=== PATIENT | male | born 1960 | race Caucasian/White ===

== ENCOUNTER 2018-05-10 01:18 | Inpatient (IN) | payer BC ==
[2018-05-10] MEDS ORDERED: NITROGLYCERIN SL TABS 0.4 MG TAB SUBLINGUAL PRN (01:49)
[2018-05-10] MEDS ORDERED: NITROGLYCERIN-D5W PMX 50 MG in DEXTROSE/WATER 1 250ML.BAG IV ONE (01:52)
--- NOTE | 2018-05-10 01:53 | ED ---
Chest Pain [facility] - General Chief Complaint: Chest Pain Stated Complaint: Chest Pain Time Seen by Provider: 05/10/18 01:46 Source: patient Mode of arrival: EMS Limitations: no limitations - History of Present Illness Initial Comments: This patient is 57-year-old man transferred here from the outside hospital. The patient had gone there this evening to be evaluated for chest pain that is been intermittent over the past few days and got much worse tonight. He indicates the left chest and states the pain radiates to his neck and also to his left upper extremity. He has history of previous coronary artery disease and states he has had approximately 13 stents placed the last of which was 2-3 years ago. He states that this pain feels very similar to what he was having with the previous stent. Patient initial evaluation was negative, the patient had been started on heparin and nitroglycerin drip and transferred here. He states that his pain is now resolved. He is not having any anginal symptoms at the moment. MD Complaint: chest pain -: days(s) Onset: during rest Pain Location: left chest Pain Radiation: LUE, jaw/teeth Severity: moderate Quality: tightness Consistency: constant, now resolved Improves With: nitroglycerin Worsens With: nothing Treatments Prior to Arrival: aspirin, nitroglycerin, oxygen, other (Heparin) - Related Data Home Medications Medication Instructions Recorded Confirmed Aspirin [Adult Low Dose Aspirin EC] 81 mg PO DAILY 05/10/18 05/10/18 Atenolol [Tenormin] 25 mg PO BID 05/10/18 05/10/18 Atorvastatin [Lipitor] 20 mg PO HS 05/10/18 05/10/18 Cholecalciferol [Vitamin D3] 1,000 unit PO DAILY 05/10/18 05/10/18 Lisinopril [Zestril] 2.5 mg PO DAILY 05/10/18 05/10/18 Tamsulosin [Flomax] 0.4 mg PO DAILY 05/10/18 05/10/18 Testosterone Cypionate 200 mg IM Q30D 05/10/18 05/10/18 [Depo-Testosterone] Previous Rx's Medication Instructions Recorded Clopidogrel [Plavix] 75 mg PO DAILY #30 tab 04/12/16 Nitroglycerin Sl Tabs [Nitrostat] 0.4 mg SUBLINGUAL Q5M PRN #20 tab 06/18/16 Allergies Allergy/AdvReac Type Severity Reaction Status Date / Time No Known Allergies Allergy Verified 05/10/18 07:11 Review of Systems ROS Statement: Those systems with pertinent positive or pertinent negative responses have been documented in the HPI. ROS Other: All systems not noted in ROS Statement are negative. Constitutional: Denies: fever, chills Respiratory: Denies: cough, dyspnea, hemoptysis Cardiovascular: Reports: chest pain. Denies: palpitations, orthopnea, edema, syncope Gastrointestinal: Denies: abdominal pain, nausea, vomiting, diarrhea, melena, hematochezia Genitourinary: Denies: dysuria Musculoskeletal: Denies: back pain Skin: Denies: rash Neurological: Denies: headache, weakness, numbness, paresthesias EKG Findings - EKG Results: EKG: interpreted by LEEANN PITTMAN, sinus rhythm, normal axis, normal QRS, normal ST/ T, no acute changes EKG shows: bradycardia (Rate approximately 59 bpm) Past Medical History Past Medical History: Coronary Artery Disease (CAD), Chest Pain / Angina, Hypertension, Myocardial Infarction (OR) History of Any Multi-Drug Resistant Organisms: None Reported Past Surgical History: Heart Catheterization With Stent, Tonsillectomy Additional Past Surgical History / Comment(s): 13 stents, Past Anesthesia/Blood Transfusion Reactions: No Reported Reaction Past Psychological History: No Psychological Hx Reported Smoking Status: Current some day smoker Past Alcohol Use History: Daily Past Drug Use History: None Reported - Past Family History Father Family Medical History: Cancer, Coronary Artery Disease (CAD) General Exam Limitations: no limitations General appearance: alert, in no apparent distress Head exam: Present: atraumatic, normocephalic Eye exam: Present: normal appearance. Absent: scleral icterus, conjunctival injection ENT exam: Present: normal oropharynx Neck exam: Present: normal inspection Respiratory exam: Present: normal lung sounds bilaterally. Absent: respiratory distress, wheezes, rales, rhonchi, stridor Cardiovascular Exam: Present: regular rate, normal rhythm, normal heart sounds. Absent: systolic murmur, diastolic murmur, rubs, gallop GI/Abdominal exam: Present: soft. Absent: distended, tenderness, guarding, rebound, mass Extremities exam: Present: normal inspection, normal capillary refill. Absent: pedal edema, calf tenderness Back exam: Present: normal inspection. Absent: CVA tenderness (R), CVA tenderness (L) Neurological exam: Present: alert Skin exam: Present: warm, dry, intact, normal color. Absent: rash Course Vital Signs 05/10/18 05/10/18 05/10/18 01:21 04:11 04:41 Temperature 97.8 F Pulse Rate 60 65 63 Respiratory 18 18 18 Rate Blood Pressure 126/66 129/77 148/82 O2 Sat by Pulse 96 96 95 Oximetry 05/10/18 05/10/18 06:06 07:14 Temperature 97.7 F Pulse Rate 56 L 57 L Respiratory 18 18 Rate Blood Pressure 135/74 122/75 O2 Sat by Pulse 94 L 96 Oximetry Critical Care Time Critical Care Time: Yes (30 minutes) Disposition Clinical Impression: Chest pain, Acute coronary syndrome Disposition: ADMITTED IP TO THIS HOSP Condition: Fair Is patient prescribed a controlled substance at d/c from ED?: No
[2018-05-10] MEDS: HEPARIN SOD,PORK IN 0.45% NACL 25,000 UNIT in 0.45% NACL 1 500ML.BAG IV SCH ×2 (04:42→23:48)
[2018-05-10] MEDS: SODIUM CHLORIDE 0.9% 1,000 ML IV SCH ×3 (04:42→15:46)
[2018-05-10 06:47] LABS: Creatine Kinase MB 0.9 ng/mL (0.0-2.4)
[2018-05-10 06:56] LABS: Troponin I 0.047 ng/mL (0.000-0.034)
--- NOTE | 2018-05-10 06:58 | P.HPIM ---
History of Present Illness H&P Date: 05/10/18 Chief Complaint: Chest pain 57-year-old male with history of coronary artery disease status post stents, hypertension, and smoking. Patient was transferred to our facility from different hospital ([facility]) where he presented for intermittent chest pain over the past few days. He reports chest pain with activity , He describes left-sided chest pain feels like tightness and pressure that radiates to the neck and left arm 8 out of 10 in severity associated with feeling nauseous and dizzy and difficulty breathing. Nitro helped resolve the pain. He describes that the pain is very similar to previous attacks where he required left heart cath and stenting patient was started on heparin drip and nitro drip at the other facility and was transferred to our hospital. Currently he reports no pain Otherwise patient denies any GI bleeding, denies any headache or changes in his vision or hearing he denies any abdominal pain changes in his bowel habits or urinary habits. Denies any focal neurologic deficits Review of Systems Pertinent positives as noted in HPI. All other systems were reviewed and are negative Past Medical History Past Medical History: Coronary Artery Disease (CAD), Chest Pain / Angina, Hypertension, Myocardial Infarction (OR) History of Any Multi-Drug Resistant Organisms: None Reported Past Surgical History: Heart Catheterization With Stent, Tonsillectomy Additional Past Surgical History / Comment(s): 13 stents, Past Anesthesia/Blood Transfusion Reactions: No Reported Reaction Past Psychological History: No Psychological Hx Reported Smoking Status: Current some day smoker Past Alcohol Use History: Daily Past Drug Use History: None Reported - Past Family History Father Family Medical History: Cancer, Coronary Artery Disease (CAD) Medications and Allergies Home Medications Medication Instructions Recorded Confirmed Type Clopidogrel [Plavix] 75 mg PO DAILY #30 tab 04/12/16 05/10/18 Rx Nicotine 21Mg/24Hr Patch [Habitrol] 1 patch TRANSDERM DAILY #30 patch 04/12/16 05/10/18 Rx Nitroglycerin Sl Tabs [Nitrostat] 0.4 mg SUBLINGUAL Q5M PRN #20 tab 04/12/16 Rx Aspirin [Adult Low Dose Aspirin EC] 81 mg PO 05/10/18 History Atenolol [Tenormin] 25 mg PO BID 05/10/18 05/10/18 History Atorvastatin [Lipitor] 20 mg PO HS 05/10/18 05/10/18 History Cholecalciferol [Vitamin D3] 1,000 unit PO DAILY 05/10/18 05/10/18 History Lisinopril [Zestril] 25 mg PO DAILY 05/10/18 05/10/18 History Tamsulosin [Flomax] 0.4 mg PO DAILY 05/10/18 05/10/18 History Allergies Allergy/AdvReac Type Severity Reaction Status Date / Time No Known Allergies Allergy Verified 05/10/18 01:26 Physical Exam Vitals: Vital Signs Temp Pulse Resp BP Pulse Ox 05/10/18 06:06 97.7 F 56 L 18 135/74 94 L 05/10/18 04:41 63 18 148/82 95 05/10/18 04:11 97.8 F 65 18 129/77 96 05/10/18 01:21 60 18 126/66 96 Intake and Output 05/09/18 05/09/18 05/10/18 14:59 22:59 06:59 Output Total 230 Balance -230 Output: Gastric Drainage 230 Other: Weight 79.379 kg Constitutional: No acute distress, conversant, pleasant Eyes: Anicteric sclerae, moist conjunctiva, no lid-lag Pupils equal round reactive to light ENMT: NC/AT Oropharynx clear, no erythema, or exudates Neck: Supple, FROM, no masses, or JVD No carotid bruits No thyromegaly Lungs: Clear to auscultation Clear to percussion Normal respiratory effort, no accessory muscle use Cardiovascular: Heart regular in rate and rhythm, No murmurs, gallops, or rubs No peripheral edema Abdominal: Soft Nontender, no guarding, rebound or rigidity Abdomen moving with respiration Normoactive bowel sounds No hepatomegaly, No splenomegaly No palpable mass No abdominal wall hernia noted Skin: Normal temperature, tone, texture, turgor No induration No subcutaneous nodules No rash, lesions No ulcers Extremities: No digital cyanosis No clubbing Pedal pulses intact and symmetrical Radial pulses intact and symmetrical No calf tenderness Psychiatric: Alert and oriented to person, place and time Appropriate affect fair judgment Neuro Muscles Strength 5/5 in all 4 extremities Sensation to light touch grossly present throughout Cranial nerves II-XII grossly intact No focal sensory deficits Lymphatics: no palpable cervical or supraclavicular , or inguinal lymph nodes Assessment and Plan Assessment: 57-year-old male with history of coronary artery disease status post stents, hypertension and smoking. Patient is admitted under observation with anticipated length of stay of less than 48 hours for unstable angina he was transferred from a different facility ([facility]) with nitro drip and heparin drip which helped control his pain. 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 Monitor troponins and cardiac enzymes Morphine when necessary for pain Oxygen through nasal cannula as needed Cardiology consult Hypertension Continue with atenolol and lisinopril Sinus bradycardia currently asymptomatic Continue to monitor DVT prophylaxis patient on heparin drip for ACS smoking few cigarettes daily counseled to quit smoking Surrogate decision-maker:Hoa uribe CODE STATUS:full code Anticipated discharge: <[address]: Home A total of 50 minutes was spent on the care of this complex patient more than 50 % of the time was spent in counseling and care coordination.
[2018-05-10 09:15] LABS: Basophils # (A) 0.1 k/uL (0-0.2); Basophils % (A) 1 %; Eosinophils # (A) 0.3 k/uL (0-0.7); Eosinophils % (A) 4 %; HCT 44.2 % (39.0-53.0); HGB 15.2 gm/dL (13.0-17.5); Lymphocytes % (A) 28 %; MCH 31.1 pg (25.0-35.0); MCHC 34.3 g/dL (31.0-37.0); MCV 90.5 fL (80.0-100.0); Mean Platelet Volume 6.8; Monocytes # (A) 0.6 k/uL (0-1.0); Monocytes % (A) 9 %; Neutrophils % (A) 56 %; Platelet Count 201 k/uL (150-450); RBC 4.89 m/uL (4.30-5.90); RDW 13.7 % (11.5-15.5); WBC 7.2 k/uL (3.8-10.6)
[2018-05-10] MEDS: LISINOPRIL 2.5 MG TAB PO SCH (09:18)
[2018-05-10] MEDS: CLOPIDOGREL 75 MG TAB PO SCH (09:18)
[2018-05-10] MEDS: ATENOLOL 25 MG TAB PO SCH ×2 (09:18→20:14)
[2018-05-10] MEDS: TAMSULOSIN 0.4 MG CAP.ER.24H PO SCH (09:19)
[2018-05-10 09:58] LABS: ALT 24 U/L (21-72); AST 24 U/L (17-59); Albumin 3.9 g/dL (3.5-5.0); Alkaline Phosphatase 87 U/L (38-126); Anion Gap 5 mmol/L; Blood Urea Nitrogen 8 mg/dL (9-20); Calcium 8.6 mg/dL (8.4-10.2); Carbon Dioxide 25 mmol/L (22-30); Chloride 110 mmol/L (98-107); Glucose 86 mg/dL (74-99); Potassium 4.8 mmol/L (3.5-5.1); Sodium 140 mmol/L (137-145); Total Bilirubin 0.4 mg/dL (0.2-1.3); Total Protein 6.6 g/dL (6.3-8.2)
--- NOTE | 2018-05-10 12:49 | P.CRDCN ---
History of Present Illness Consult date: 05/10/18 Chief complaint: chest discomfort History of present illness: This is a pleasant 57-year-old gentleman who sees Dr. VC Simpson in the office on regular basis with past medical history significant for coronary artery disease and status post multi-vessel angioplasty and stenting with the last stent was performed in 2016 for the RCA, significant history of smoking, as well as hypertension and dyslipidemia presented to the emergency room complaining of chest discomfort. The symptoms started about 3 days ago. The patient described chest discomfort, in the mid of the chest, as a pressure on the chest, associated with shortness of breath as well as nausea. The discomfort was radiating to his neck as well as to his jaw. He clearly stated that the discomfort is clearly worse with exertion and better with resting. It has gotten worse yesterday significantly and he decided to come to the emergency room. Currently he is on heparin IV as well as nitroglycerin IV and he is pain-free. The EKG showed sinus rhythm with nonspecific changes. The cardiac enzymes were checked and we have only one set of enzymes came in to be abnormal was abnormal troponin. The patient was ruled in for acute non-ST patient myocardial infarction. We'll continue the aspirin IV and heparin IV. He is on dual antiplatelet therapy with aspirin and Plavix and we will continue that. Also he is on high intensity statin which we will continue. The patient does need to undergo a heart catheterization to rule out any severe underlying coronary artery disease which is likely the etiology for his chest discomfort giving the nature of chest discomfort with exertion as well as abnormal cardiac enzymes and History of coronary artery disease and coronary artery vascularization. Past Medical History Past Medical History: Coronary Artery Disease (CAD), Chest Pain / Angina, Hypertension, Myocardial Infarction (SC) History of Any Multi-Drug Resistant Organisms: None Reported Past Surgical History: Heart Catheterization With Stent, Tonsillectomy Additional Past Surgical History / Comment(s): 13 stents, Past Anesthesia/Blood Transfusion Reactions: No Reported Reaction Past Psychological History: No Psychological Hx Reported Smoking Status: Current some day smoker Past Alcohol Use History: Daily Past Drug Use History: None Reported - Past Family History Father Family Medical History: Cancer, Coronary Artery Disease (CAD) Medications and Allergies Home Medications Medication Instructions Recorded Confirmed Type Clopidogrel [Plavix] 75 mg PO DAILY #30 tab 04/12/16 05/10/18 Rx Nitroglycerin Sl Tabs [Nitrostat] 0.4 mg SUBLINGUAL Q5M PRN #20 tab 04/12/16 Rx Aspirin [Adult Low Dose Aspirin EC] 81 mg PO DAILY 05/10/18 05/10/18 History Atenolol [Tenormin] 25 mg PO BID 05/10/18 05/10/18 History Atorvastatin [Lipitor] 20 mg PO HS 05/10/18 05/10/18 History Cholecalciferol [Vitamin D3] 1,000 unit PO DAILY 05/10/18 05/10/18 History Lisinopril [Zestril] 2.5 mg PO DAILY 05/10/18 05/10/18 History Tamsulosin [Flomax] 0.4 mg PO DAILY 05/10/18 05/10/18 History Testosterone Cypionate 200 mg IM Q30D 05/10/18 05/10/18 History [Depo-Testosterone] Allergies Allergy/AdvReac Type Severity Reaction Status Date / Time No Known Allergies Allergy Verified 05/10/18 07:11 Physical Exam Vitals: Vital Signs Temp Pulse Pulse Resp BP BP Pulse Ox 05/10/18 11:20 97.1 F L 60 16 133/85 95 05/10/18 10:33 64 18 142/91 95 05/10/18 09:20 63 18 127/75 94 L 05/10/18 08:52 96 05/10/18 07:14 57 L 18 122/75 96 05/10/18 06:06 97.7 F 56 L 18 135/74 94 L 05/10/18 04:41 63 18 148/82 95 05/10/18 04:11 97.8 F 65 18 129/77 96 05/10/18 01:21 60 18 126/66 96 Intake and Output 05/09/18 05/10/18 05/10/18 22:59 06:59 14:59 Other: Weight 77.9 kg - Constitutional General appearance: no acute distress - Respiratory Respiratory: bilateral: CTA - Cardiovascular Rhythm: regular Heart sounds: normal: S1, S2 Results 05/10/18 09:07 05/10/18 09:07 Cardiac Enzymes 05/10/18 05/10/18 Range/Units 05:54 09:07 AST 24 (17-59) U/L CK-MB (CK-2) 0.9 (0.0-2.4) ng/mL Troponin I 0.047 H* (0.000-0.034) ng/mL Coagulation 05/10/18 Range/Units 06:05 APTT 33.0 H (22.0-30.0) sec CBC 05/10/18 Range/Units 09:07 WBC 7.2 (3.8-10.6) k/uL RBC 4.89 (4.30-5.90) m/uL Hgb 15.2 (13.0-17.5) gm/dL Hct 44.2 (39.0-53.0) % Plt Count 201 (150-450) k/uL Comprehensive Metabolic Panel 05/10/18 Range/Units 09:07 Sodium 140 (137-145) mmol/L Potassium 4.8 (3.5-5.1) mmol/L Chloride 110 H (98-107) mmol/L Carbon Dioxide 25 (22-30) mmol/L BUN 8 L (9-20) mg/dL Creatinine 0.69 (0.66-1.25) mg/dL Glucose 86 (74-99) mg/dL Calcium 8.6 (8.4-10.2) mg/dL AST 24 (17-59) U/L ALT 24 (21-72) U/L Alkaline Phosphatase 87 (38-126) U/L Total Protein 6.6 (6.3-8.2) g/dL Albumin 3.9 (3.5-5.0) g/dL Current Medications Generic Name Dose Route Start Last Admin Trade Name Freq PRN Reason Stop Dose Admin Aspirin 325 mg 05/11/18 09:00 Aspirin PO DAILY [facility] Atenolol 25 mg 05/10/18 09:00 05/10/18 09:18 Tenormin PO 25 mg BID SONIA Administration Atorvastatin Calcium 20 mg 05/10/18 21:00 Lipitor PO HS [facility] Clopidogrel Bisulfate 75 mg 05/10/18 09:00 05/10/18 09:18 Plavix PO 75 mg DAILY [facility] Administration Heparin Sodium/Sodium Chloride 500 mls @ 19.05 mls/hr 05/10/18 02:00 04:42 25,000 unit/ Sodium Chloride IV 12 units/kg/hr .Q24H SONIA 19.05 mls/hr Administration Protocol 12 UNITS/KG/HR Sodium Chloride 1,000 mls @ 100 mls/hr 05/10/18 02:00 05/10/18 12:21 Saline 0.9% IV Not Given .Q10H SONIA Nitroglycerin/Dextrose 50 mg/ 250 mls @ 3 mls/hr 05/10/18 01:52 05/10/18 04: 44 IV Solution IV 05/11/18 01:51 10 mcg/min .Q24H ONE 3 mls/hr Administration Protocol 10 MCG/MIN Lisinopril 2.5 mg 05/10/18 09:00 05/10/18 09:18 Zestril PO 2.5 mg DAILY SONIA Administration Nitroglycerin 0.4 mg 05/10/18 01:49 Nitrostat SUBLINGUAL Q5M PRN Chest Pain Tamsulosin HCl 0.4 mg 05/10/18 09:00 05/10/18 09:19 Flomax PO 0.4 mg DAILY SONIA Administration Intake and Output 05/09/18 05/10/18 05/10/18 22:59 06:59 14:59 Other: Weight 77.9 kg 05/10/18 09:07 05/10/18 09:07 Assessment and Plan Assessment: assessment #1 acute non-ST elevation myocardial infarction #2 known coronary artery disease and prior coronary artery and stenting of multiple vessels #3 significant history of smoking. Unfortunately the patient continues to smoke #4 hypertension #5 dyslipidemia Plan #1 continue the aspirin, with a sagrario, and statin #2 continue the heparin IV and nitro IV and titrate the nitro IV the chest discomfort #3 we will obtain an echocardiogram was Doppler #4 the patient does need to undergo coronary angiogram to rule out any severe underlying coronary artery disease. He sees Dr. VC Simpson in the office and I will schedule the patient to undergo a heart catheterization with him.
[2018-05-10 13:03] LABS: Creatine Kinase MB 0.6 ng/mL (0.0-2.4)
[2018-05-10 13:06] LABS: Troponin I 0.038 ng/mL (0.000-0.034)
--- NOTE | 2018-05-10 13:11 | P.PN ---
Progress Note - Text Progress Note Date: 05/10/18 An 57-year-old male with known history of coronary disease with stenting, presenting with non-ST elevation SC, with his second set of cardiac enzymes trending up, he started on IV heparin, aspirin beta sagrario and statin therapy. We'll follow-up his echocardiogram. An cardiology recommendations. The patient currently pain-free. We'll continue to monitor closely
--- NOTE | 2018-05-10 15:10 | ECHOF ---
Referral Reason:chest pain rule out MEASUREMENTS -------- HEIGHT: 182.9 cm WEIGHT: 78.0 kg BP: IVSd: 1.3 cm (0.6 - 1.1) LVIDd: 4.0 cm (3.9 - 5.3) LVPWd: 1.3 cm (0.6 - 1.1) IVSs: 1.8 cm LVIDs: 2.2 cm LVPWs: 1.9 cm Ao Diam: 3.4 cm (2.0 - 3.7) LA Diam: 3.4 cm (2.7 - 3.8) AV Cusp: 1.8 cm (1.5 - 2.6) EPSS: 0.7 cm MV E José Miguel: 0.82 m/s MV DecT: 337 ms MV A José Miguel: 0.89 m/s MV E/A Ratio: 0.92 RAP: 5.00 mmHg RVSP: 8.86 mmHg MV EF SLOPE: 67.70 mm/s (70 - 150) MV EXCURSION: 22.21 mm (> 18.000) FINDINGS -------- Sinus rhythm. This was a technically good study. The left ventricular size is normal. There is mild concentric left ventricular hypertrophy. Overa ll left ventricular systolic function is normal with, an EF between 55 - 60 %. The right ventricle is normal in size and function. The left atrium is normal in size. The right atrium is normal in size. Aortic valve is trileaflet and is mildly thickened. The mitral valve leaflets are mildly thickened. There is trace mitral regurgitation. Trace tricuspid regurgitation present. The right ventricular systolic pressure, as measured by Dopp ler, is 8.86mmHg. Pulmonic valve appears structurally normal. The aortic root size is normal. Normal inferior vena cava with normal inspiratory collapse consistent with estimated right atrial pre ssure of 5 mmHg. The pericardium is normal. CONCLUSIONS -------- 1. Sinus rhythm. 2. This was a technically good study. 3. The left ventricular size is normal. 4. There is mild concentric left ventricular hypertrophy. 5. Overall left ventricular systolic function is normal with, an EF between 55 - 60 %. 6. The right ventricle is normal in size and function. 7. The left atrium is normal in size. 8. The right atrium is normal in size. 9. Aortic valve is trileaflet and is mildly thickened. 10. The mitral valve leaflets are mildly thickened. 11. There is trace mitral regurgitation. 12. Trace tricuspid regurgitation present. 13. The right ventricular systolic pressure, as measured by Doppler, is 8.86mmHg. 14. Pulmonic valve appears structurally normal. 15. The aortic root size is normal. 16. Normal inferior vena cava with normal inspiratory collapse consistent with estimated right atrial pressure of 5 mmHg. 17. The pericardium is normal. PINKING SEWING MACHINE OPERATOR: Dafne Caceres RDCS
[2018-05-10] MEDS ORDERED: HEPARIN SODIUM,PORCINE 5,000 UNIT/ML 1 ML VIAL IV PRN (15:42)
[2018-05-10 19:24] LABS: Creatine Kinase MB 0.6 ng/mL (0.0-2.4)
[2018-05-10 19:29] LABS: Troponin I 0.036 ng/mL (0.000-0.034)
[2018-05-10] MEDS: ATORVASTATIN 20 MG TAB PO SCH (20:14)
[2018-05-11] MEDS: CLOPIDOGREL 75 MG TAB PO SCH (06:07)
[2018-05-11] MEDS: LISINOPRIL 2.5 MG TAB PO SCH (06:07)
[2018-05-11] MEDS: ATENOLOL 25 MG TAB PO SCH ×2 (06:07→20:41)
[2018-05-11] MEDS: ASPIRIN 325 MG TAB PO SCH (06:07)
[2018-05-11 06:48] LABS: Cholesterol 165 mg/dL (<200); HDL Cholesterol 53 mg/dL (40-60); LDL Cholesterol,Calculated 88 mg/dL (0-99); Triglycerides 121 mg/dL (<150)
[2018-05-11] MEDS: SODIUM CHLORIDE 0.9% 1,000 ML IV SCH ×2 (08:28→20:41)
--- NOTE | 2018-05-11 10:22 | P.PN ---
Subjective Progress Note Date: 05/11/18 Principal diagnosis: Acute non-ST deviation in my This is a pleasant 57-year-old gentleman who sees Dr. VC Simpson in the office as an outpatient with known CAD and prior revascularization indeterminable stenting, hypertension, dyslipidemia, and significant history of smoking, was admitted to the hospital with acute non-ST elevation NM. He presented to the emergency room with chest discomfort and ruled in for acute non-STMI. He is pain-free on heparin IV and nitroglycerin IV. I did recommend proceeding with a heart catheterization to rule out any severe underlying coronary artery disease. The procedure in details was explained to the patient and his family. Objective - Vital Signs Vital signs: Vital Signs Temp 97.8 F 05/11/18 08:29 Pulse 68 05/11/18 08:29 Resp 17 05/11/18 08:29 BP 121/71 05/11/18 08:29 Pulse Ox 96 05/11/18 08:29 Intake & Output 05/10/18 05/11/18 05/11/18 18:59 06:59 18:59 Intake Total 2093.868 192.464 Output Total 600 Balance 1493.868 192.464 Weight 79.7 kg Intake: IV 1044 Heparin Sod,Pork in 0.45% 117 NaCl 25,000 unit In 0.45 % NaCl 1 500ml.bag @ 12 UNITS/KG/HR 19.05 mls/hr IV .Q24H SONIA Rx#: [id number] Nitroglycerin-D5w Pmx 50 27 mg In Dextrose/Water 1 250ml.bag @ 10 MCG/MIN 3 mls/hr IV .Q24H ONE Rx#: [id number] Sodium Chloride 0.9% 1, 900 000 ml @ 100 mls/hr IV . Q10H SONIA Rx#:[id number] Intake, IV Titration 209.868 192.464 Amount Heparin Sod,Pork in 0.45% 209.868 192.464 NaCl 25,000 unit In 0.45 % NaCl 1 500ml.bag @ 12 UNITS/KG/HR 19.05 mls/hr IV .Q24H SONIA Rx#: [id number] Oral 840 Output: Urine 600 Other: Voiding Method Toilet Toilet Toilet Urinal # Voids 1 1 0 - Constitutional General appearance: Present: no acute distress - Respiratory Respiratory: bilateral: CTA - Cardiovascular Rhythm: regular Heart sounds: normal: S1, S2 - Labs CBC & Chem 7: 05/10/18 09:07 05/10/18 09:07 Labs: Abnormal Lab Results - Last 24 Hours (Table) 05/10/18 05/10/18 05/10/18 Range/Units 11:56 15:11 18:12 APTT 38.2 H (22.0-30.0) sec Troponin I 0.038 H* 0.036 H* (0.000-0.034) ng/mL 05/10/18 05/11/18 Range/Units 21:49 05:41 APTT 68.4 H 50.6 H (22.0-30.0) sec Troponin I (0.000-0.034) ng/mL Assessment and Plan Assessment: assessment #1 acute non-ST elevation myocardial infarction #2 known coronary artery disease and prior coronary artery and stenting of multiple vessels #3 significant history of smoking. Unfortunately the patient continues to smoke #4 hypertension #5 dyslipidemia Plan #1 continue the aspirin, with a sagrario, and statin #2 continue the heparin IV and nitro IV and titrate the nitro IV the chest discomfort #3 proceeding with heart catheterization.
--- NOTE | 2018-05-11 13:47 | P.PN ---
Subjective Progress Note Date: 05/11/18 Patient resting comfortably, denies chest pain or shortness of breath. Seen by cardiology earlier plans to head to cardiac catheterization lab later today. No acute events overnight Objective - Vital Signs Vital signs: Vital Signs Temp 97.6 F 05/11/18 11:55 Pulse 68 05/11/18 11:55 Resp 17 05/11/18 11:55 BP 137/76 05/11/18 11:55 Pulse Ox 98 05/11/18 11:55 Intake & Output 05/10/18 05/11/18 05/11/18 18:59 06:59 18:59 Intake Total 2093.868 192.464 Output Total 600 Balance 1493.868 192.464 Weight 79.7 kg Intake: IV 1044 Heparin Sod,Pork in 0.45% 117 NaCl 25,000 unit In 0.45 % NaCl 1 500ml.bag @ 12 UNITS/KG/HR 19.05 mls/hr IV .Q24H [facility] Rx#: [id number] Nitroglycerin-D5w Pmx 50 27 mg In Dextrose/Water 1 250ml.bag @ 10 MCG/MIN 3 mls/hr IV .Q24H [facility] Rx#: [id number] Sodium Chloride 0.9% 1, 900 000 ml @ 100 mls/hr IV . Q10H [facility] Rx#:[id number] Intake, IV Titration 209.868 192.464 Amount Heparin Sod,Pork in 0.45% 209.868 192.464 NaCl 25,000 unit In 0.45 % NaCl 1 500ml.bag @ 12 UNITS/KG/HR 19.05 mls/hr IV .Q24H [facility] Rx#: [id number] Oral 840 Output: Urine 600 Other: Voiding Method Toilet Toilet Toilet Urinal # Voids 1 1 1 - Exam Constitutional: No acute distress, conversant, pleasant Eyes: Anicteric sclerae, moist conjunctiva, no lid-lag, PERRLA ENMT: NC/AT,Oropharynx clear, no erythema, exudates Neck:Supple, FROM, no masses, or JVD, No carotid bruits; No thyromegaly Lungs: Clear to auscultation, Clear to percussion, Normal respiratory effort, no accessory muscle use Cardiovascular: Heart regular in rate and rhythm, No murmurs, gallops, or rubs no peripheral edema Abdominal: Soft Nontender, nom distended, no guarding, no rebound or rigidity, Normoactive bowel sounds No hepatomegaly, No splenomegaly, No palpable mass No abdominal wall hernia noted Skin: Normal temperature, tone, texture, turgor, No induration No subcutaneous nodules, No rash, lesions, No ulcers Extremities:No digital cyanosis No clubbing, Pedal pulses intact and symmetrical Radial pulses intact and symmetrical Normal gait and station, No calf tenderness Psychiatric: Alert and oriented to person, place and time, Appropriate affect Intact judgement Neuro: Muscles Strength 5/5 in all 4 extremities, Sensation to light touch grossly present throughout, Cranial nerves II-XII grossly intact. No focal sensory deficits - Labs CBC & Chem 7: 05/10/18 09:07 05/10/18 09:07 Labs: Abnormal Lab Results - Last 24 Hours (Table) 05/10/18 05/10/18 05/10/18 Range/Units 15:11 18:12 21:49 APTT 38.2 H 68.4 H (22.0-30.0) sec Troponin I 0.036 H* (0.000-0.034) ng/mL 05/11/18 Range/Units 05:41 APTT 50.6 H (22.0-30.0) sec Troponin I (0.000-0.034) ng/mL Assessment and Plan (1) Non-STEMI (non-ST elevated myocardial infarction) Narrative/Plan: * Continue with current management patient on antiplatelet therapy aspirin with beta sagrario and statin * Continue IV heparin, IV nitro * Appreciate cardiology recommendations plans to proceed with heart catheterization today Current Visit: Yes Status: Acute Code(s): I21.4 - NON-ST ELEVATION (NSTEMI) MYOCARDIAL INFARCTION SNOMED Code(s): 913843843 (2) Presence of stent in coronary artery in patient with coronary artery disease Current Visit: Yes Status: Acute Code(s): I25.10 - ATHSCL HEART DISEASE OF [place] CORONARY ARTERY W/O ANG PCTRS; Z95.5 - PRESENCE OF CORONARY ANGIOPLASTY IMPLANT AND GRAFT SNOMED Code(s): 727400241 (3) Chest pain Current Visit: Yes Status: Acute Code(s): R07.9 - CHEST PAIN, UNSPECIFIED SNOMED Code(s): 69868770 (4) Essential hypertension Current Visit: Yes Status: Acute Code(s): I10 - ESSENTIAL (PRIMARY) HYPERTENSION SNOMED Code(s): 21738569 Plan: Disposition * Continue to monitor closely follow-up heart cath results
[2018-05-11] MEDS: TAMSULOSIN 0.4 MG CAP.ER.24H PO SCH (17:18)
[2018-05-11] MEDS: ATORVASTATIN 20 MG TAB PO SCH (20:41)
[2018-05-12] MEDS: HEPARIN SOD,PORK IN 0.45% NACL 25,000 UNIT in 0.45% NACL 1 500ML.BAG IV SCH (05:21)
[2018-05-12] MEDS: SODIUM CHLORIDE 0.9% 1,000 ML IV SCH ×2 (05:21→11:39)
[2018-05-12] MEDS: LISINOPRIL 2.5 MG TAB PO SCH (06:22)
[2018-05-12] MEDS: ASPIRIN 325 MG TAB PO SCH (06:22)
[2018-05-12] MEDS: ATENOLOL 25 MG TAB PO SCH (06:22)
[2018-05-12] MEDS: TAMSULOSIN 0.4 MG CAP.ER.24H PO SCH (06:22)
[2018-05-12] MEDS: CLOPIDOGREL 75 MG TAB PO SCH (07:38)
[2018-05-12] MEDS ORDERED: ACETAMINOPHEN TAB 325 MG TAB PO PRN (10:10)
--- NOTE | 2018-05-12 10:53 | P.PN ---
Subjective Progress Note Date: 05/12/18 Patient resting comfortably, denies chest pain or shortness of breath. Seen by cardiology earlier plans to head to cardiac catheterization lab later today. No acute events overnight Objective - Vital Signs Vital signs: Vital Signs Temp 96.8 F L 05/12/18 10:30 Pulse 62 05/12/18 10:30 Resp 16 05/12/18 10:30 BP 119/63 05/12/18 10:30 Pulse Ox 97 05/12/18 10:30 Intake & Output 05/11/18 05/12/18 05/12/18 18:59 06:59 18:59 Intake Total 1750.985 Balance 1750.985 Weight 80.2 kg Intake: IV 960 Heparin Sod,Pork in 0.45% 160 NaCl 25,000 unit In 0.45 % NaCl 1 500ml.bag @ 12 UNITS/KG/HR 19.05 mls/hr IV .Q24H [facility] Rx#: [id number] Sodium Chloride 0.9% 1, 800 000 ml @ 100 mls/hr IV . Q10H [facility] Rx#:[id number] Intake, IV Titration 550.985 Amount Heparin Sod,Pork in 0.45% 526.985 NaCl 25,000 unit In 0.45 % NaCl 1 500ml.bag @ 12 UNITS/KG/HR 19.05 mls/hr IV .Q24H [facility] Rx#: [id number] Nitroglycerin-D5w Pmx 50 24 mg In Dextrose/Water 1 250ml.bag @ 10 MCG/MIN 3 mls/hr IV .Q24H [facility] Rx#: [id number] Oral 240 Other: Voiding Method Toilet Toilet Toilet Urinal # Voids 2 4 1 # Bowel Movements 0 - Exam Constitutional: No acute distress, conversant, pleasant Eyes: Anicteric sclerae, moist conjunctiva, no lid-lag, PERRLA ENMT: NC/AT,Oropharynx clear, no erythema, exudates Neck:Supple, FROM, no masses, or JVD, No carotid bruits; No thyromegaly Lungs: Clear to auscultation, Clear to percussion, Normal respiratory effort, no accessory muscle use Cardiovascular: Heart regular in rate and rhythm, No murmurs, gallops, or rubs no peripheral edema Abdominal: Soft Nontender, nom distended, no guarding, no rebound or rigidity, Normoactive bowel sounds No hepatomegaly, No splenomegaly, No palpable mass No abdominal wall hernia noted Skin: Normal temperature, tone, texture, turgor, No induration No subcutaneous nodules, No rash, lesions, No ulcers Extremities:No digital cyanosis No clubbing, Pedal pulses intact and symmetrical Radial pulses intact and symmetrical Normal gait and station, No calf tenderness Psychiatric: Alert and oriented to person, place and time, Appropriate affect Intact judgement Neuro: Muscles Strength 5/5 in all 4 extremities, Sensation to light touch grossly present throughout, Cranial nerves II-XII grossly intact. No focal sensory deficits - Labs CBC & Chem 7: 05/10/18 09:07 05/10/18 09:07 Labs: Abnormal Lab Results - Last 24 Hours (Table) 05/11/18 Range/Units 21:07 APTT 51.5 H (22.0-30.0) sec Assessment and Plan (1) Non-STEMI (non-ST elevated myocardial infarction) Narrative/Plan: * Continue with current management patient on antiplatelet therapy aspirin with beta sagrario and statin * Continue IV heparin, IV nitro * Appreciate cardiology recommendations plans to proceed with heart catheterization today Current Visit: Yes Status: Acute Code(s): I21.4 - NON-ST ELEVATION (NSTEMI) MYOCARDIAL INFARCTION SNOMED Code(s): 494176762 (2) Presence of stent in coronary artery in patient with coronary artery disease Current Visit: Yes Status: Acute Code(s): I25.10 - ATHSCL HEART DISEASE OF [place] CORONARY ARTERY W/O ANG PCTRS; Z95.5 - PRESENCE OF CORONARY ANGIOPLASTY IMPLANT AND GRAFT SNOMED Code(s): 730815283 (3) Chest pain Current Visit: Yes Status: Acute Code(s): R07.9 - CHEST PAIN, UNSPECIFIED SNOMED Code(s): 31663719 (4) Essential hypertension Current Visit: Yes Status: Acute Code(s): I10 - ESSENTIAL (PRIMARY) HYPERTENSION SNOMED Code(s): 24455198 Plan: Disposition follow-up cardiac cath results
[2018-05-12] MEDS ORDERED: MIDAZOLAM 2 MG/2 ML VIAL IV ONE (10:54)
[2018-05-12] MEDS ORDERED: IV FLUID CONTINUATION 1,000 ML IV ONE (10:55)
[2018-05-12] MEDS ORDERED: LIDOCAINE 1% INJ 10MG/ML (20 ML MDV) SQ ONE (11:00)
[2018-05-12] MEDS: VERAPAMIL SYRINGE (5 MG/10 ML) INTRAARTER ONE ×2 (11:03→11:13)
[2018-05-12] MEDS ORDERED: IOPAMIDOL-370 125ML BTL INJ ONE (11:13)
[2018-05-12] MEDS ORDERED: RX INFO: IV CONTRAST WAS GIVEN 1 EACH MISC MISCELLANE PRN (11:31)
[2018-05-12] MEDS ORDERED: SODIUM CHLORIDE 0.9% 1,000 ML IV SCH (11:45)
--- NOTE | 2018-05-12 12:51 | CC ---
CARDIAC CATHETERIZATION REPORT DATE OF SERVICE: 05/12/2018. PERFORMING PHYSICIAN: Allen Silva MD, [employer]. PROCEDURE PERFORMED: 1. Selective right and left coronary angiogram. 2. Left heart catheterization. INDICATION: This is a pleasant 57-year-old gentleman who sees Dr. Owen Simpson in the office as an outpatient with known history of coronary artery disease and multiple coronary artery stenting of the LAD and RCA, presented to the hospital with chest discomfort and ruled in for acute non ST-elevation myocardial infarction. Because of that, a heart catheterization was recommended. APPROACH: Right radial artery. COMPLICATION: None. LEVEL OF SEDATION: Moderate sedation length of 16 minutes. PROCEDURE DESCRIPTION: After obtaining an informed consent, the patient was brought to the cardiac mill laborer. The right radial artery was cannulated using micropuncture technique, the micropuncture wire passed easily then I placed a 6-Polish sheath in the right radial artery. Subsequently, I did selective right and left coronary angiogram using JR4 and JL3.5 catheters. Left heart catheterization was performed using a pigtail catheter. The procedure was completed without any complication. SELECTIVE CORONARY ANGIOGRAM: 1. The RCA is a large caliber vessel and it is a dominant vessel. The RCA is stented in the proximal and midportion. The RCA is diffuse disease up to about 50% in the midportion. Distally, there is another lesion appeared to be in the range of 50% to 60% and the RCA then bifurcates into PDA and PLV branches, both are angiographically normal. 2. The left main is angiographically normal. It bifurcates into the left circumflex and left anterior descending artery. 3. The circumflex is a moderate caliber vessel. It is a nondominant vessel with the left circumflex is angiographically normal. In the midportion, it gives rise into a medium-sized obtuse marginal branch which has mild disease in the proximal portion. 4. The LAD: The proximal LAD has a lesion, appeared to be in the range of 60%. The LAD in the midportion has multiple layers of stent with in-stent restenosis appeared to be in the range of 80%. The LAD in the mid to distal and distal portion appeared to be angiographically normal. HEMODYNAMICS: The left ventricular end-diastolic pressure was about 12 mmHg and no gradient was identified across the aortic valve. CONCLUSION: 1. Acute non ST-elevation myocardial infarction. 2. Moderate to severe disease involving the mid and distal right coronary artery. 3. Moderate to severe disease involving the proximal left anterior descending artery. Severe in-stent restenosis involving the mid left anterior descending artery. 4. Mild disease involving the left circumflex system. Giving the in-stent restenosis in this gentleman who had multiple stents in the past, I did recommend proceeding with coronary artery bypass grafting. I am going to consult the surgeon to see the patient and evaluate the patient. MMODL / IJN: [id number] /
[2018-05-12] MEDS ORDERED: MD COMMUNICATION TO PHARMACY 1 EACH MISC PO ONE ×2 (13:44)
[2018-05-12 14:52] LABS: Basophils % (A) 1 %; Eosinophils # (A) 0.1 k/uL (0-0.7); Eosinophils % (A) 3 %; Lymphocytes # (A) 1.4 k/uL (1.0-4.8); Lymphocytes % (A) 26 %; MCH 31.4 pg (25.0-35.0); MCHC 34.2 g/dL (31.0-37.0); Mean Platelet Volume 7.8; Monocytes # (A) 0.6 k/uL (0-1.0); Monocytes % (A) 10 %; Neutrophils # (A) 3.2 k/uL (1.3-7.7); Neutrophils % (A) 58 %; Platelet Count 133 k/uL (150-450); RBC 4.13 m/uL (4.30-5.90); RDW 13.4 % (11.5-15.5); WBC 5.5 k/uL (3.8-10.6)
[2018-05-12 15:02] LABS: INR 1.6 (<1.2); Partial Thromboplastin Time 29.9 sec (22.0-30.0); Prothrombin Time 14.8 sec (9.0-12.0)
[2018-05-12 15:10] LABS: ALT 48 U/L (21-72); AST 54 U/L (17-59); Albumin 3.7 g/dL (3.5-5.0); Alkaline Phosphatase 83 U/L (38-126); Anion Gap 7 mmol/L; Blood Urea Nitrogen 8 mg/dL (9-20); Calcium 8.8 mg/dL (8.4-10.2); Carbon Dioxide 22 mmol/L (22-30); Chloride 111 mmol/L (98-107); Glucose 87 mg/dL (74-99); Magnesium 1.9 mg/dL (1.6-2.3); Potassium 4.1 mmol/L (3.5-5.1); Sodium 140 mmol/L (137-145); Total Bilirubin 0.3 mg/dL (0.2-1.3)
--- NOTE | 2018-05-12 15:52 | P.GSCN ---
History of Present Illness Consult date: 05/12/18 Reason for Consult: Coronary artery disease, surgical recommendations. Requesting physician: Allen Silva History of present illness: This is a 57-year-old gentleman who does not follow with a primary care physician on a regular basis, but does follow with Dr. VC Simpson for cardiology. He has a previous medical history of coronary artery disease with previous myocardial infarction and stent placement, hypertension, hyperlipidemia , current tobacco dependence, remote history of pneumonia, history of vein stripping, and daily alcohol use. He was transferred to [facility] emergency room from an outside hospital on 05/10/2018 with complaints of intermittent, progressively worsening chest pain with radiation to his neck and left upper extremity. He stated that his pain was very similar to his previous heart attack. He was ruled in for non-ST elevation myocardial infarction. His pain resolved with initiation of IV heparin and nitroglycerin. Due to the nature of his disease process he was taken to the [facility] this morning May 12 which demonstrated moderate to severe disease involving the mid and distal right coronary artery and moderate to severe disease involving the proximal left anterior descending artery with severe in-stent restenosis of the mid LAD. Of note he also had an echocardiogram completed which demonstrated normal systolic function with an ejection fraction 55-60% and no significant valvular pathology. Dr. Galarza from cardiothoracic surgery was consulted regarding surgical revascularization recommendations. Review of Systems Review of systems was completed and was negative except as noted in the HPI. Past Medical History Past Medical History: Coronary Artery Disease (CAD), Chest Pain / Angina, Hyperlipidemia, Hypertension, Myocardial Infarction (VT), Osteoarthritis (OA), Pneumonia, Prostate Disorder Additional Past Medical History / Comment(s): Past BPH but pt said a recent physical showed no longer a problem, nodule on lung (pt does not recall laterallity) being monitored. Last Myocardial Infarction Date:: 2003 History of Any Multi-Drug Resistant Organisms: None Reported Past Surgical History: Heart Catheterization, Heart Catheterization With Stent, Orthopedic Surgery, Tonsillectomy Additional Past Surgical History / Comment(s): Pt states he has a total of 13 stents with last stenting done in 2016, cardiac caths, L knee arthroscopy Past Anesthesia/Blood Transfusion Reactions: No Reported Reaction Date of Last Stent Placement:: 2015 Past Psychological History: No Psychological Hx Reported Smoking Status: Current every day smoker Past Alcohol Use History: Daily Past Drug Use History: None Reported - Past Family History Father Family Medical History: Cancer, Coronary Artery Disease (CAD) Additional Family Medical History / Comment(s): Father had CABG done twice. He is from a cancer that involved his bones at the age of 80yrs. Mother Family Medical History: No Reported History Medications and Allergies Home Medications Medication Instructions Recorded Confirmed Type Nitroglycerin Sl Tabs [Nitrostat] 0.4 mg SUBLINGUAL Q5M PRN #20 tab 04/12/16 Rx Atenolol [Tenormin] 25 mg PO BID 05/10/18 05/10/18 History Atorvastatin [Lipitor] 20 mg PO HS 05/10/18 05/10/18 History Cholecalciferol [Vitamin D3] 1,000 unit PO DAILY 05/10/18 05/10/18 History Lisinopril [Zestril] 2.5 mg PO DAILY 05/10/18 05/10/18 History Tamsulosin [Flomax] 0.4 mg PO DAILY 05/10/18 05/10/18 History Testosterone Cypionate 200 mg IM Q30D 05/10/18 05/10/18 History [Depo-Testosterone] Aspirin 325 mg PO DAILY #60 tab 05/12/18 Rx Mupirocin 2% Oint [Bactroban 2% 1 applic NASAL BID #1 tube 05/12/18 Rx Oint] Allergies Allergy/AdvReac Type Severity Reaction Status Date / Time No Known Allergies Allergy Verified 05/10/18 07:11 Surgical - Exam Vital Signs Pulse Resp BP Pulse Ox 60 18 126/66 96 05/10/18 01:21 05/10/18 01:21 05/10/18 01:21 05/10/18 01:21 - General well developed, well nourished, no distress, no pain - Eyes PERRL, normal ocular movement - ENT no hearing loss - Neck no masses, no bruits, trachea midline - Respiratory Lung sounds bilaterally. Respirations even, nonlabored. Currently on room air with oxygen saturation 98%. No chest wall deformities. - Cardiovascular S1, S2 present. Regular rate and rhythm, sinus rhythm on telemetry. Palpable peripheral pulses bilaterally. No edema present. No calf pain or tenderness noted. No varicosities noted. - Abdomen Abdomen: soft, non tender, bowel sounds - Genitourinary Deferred - Rectum Deferred - Integumentary no rash, no growths, no abnormal pigmentation - Neurologic normal coordination, normal sensation - Musculoskeletal normal gait, normal posture - Psychiatric oriented to time, oriented to person, oriented to place, speech is normal, memory intact Results - Labs 05/12/18 14:18 05/12/18 14:18 Abnormal Lab Results - Last 24 Hours (Table) 05/11/18 05/12/18 05/12/18 Range/Units 21:07 14:18 14:18 RBC 4.13 L (4.30-5.90) m/uL Hct 38.0 L (39.0-53.0) % Plt Count 133 L (150-450) k/uL PT 14.8 H (9.0-12.0) sec INR 1.6 H (<1.2) APTT 51.5 H (22.0-30.0) sec Chloride (98-107) mmol/L BUN (9-20) mg/dL Total Protein (6.3-8.2) g/dL 05/12/18 Range/Units 14:18 RBC (4.30-5.90) m/uL Hct (39.0-53.0) % Plt Count (150-450) k/uL PT (9.0-12.0) sec INR (<1.2) APTT (22.0-30.0) sec Chloride 111 H (98-107) mmol/L BUN 8 L (9-20) mg/dL Total Protein 6.0 L (6.3-8.2) g/dL Diabetes panel 05/12/18 Range/Units 14:18 Sodium 140 (137-145) mmol/L Potassium 4.1 (3.5-5.1) mmol/L Chloride 111 H (98-107) mmol/L Carbon Dioxide 22 (22-30) mmol/L BUN 8 L (9-20) mg/dL Creatinine 0.71 (0.66-1.25) mg/dL Glucose 87 (74-99) mg/dL Calcium 8.8 (8.4-10.2) mg/dL AST 54 (17-59) U/L ALT 48 (21-72) U/L Alkaline Phosphatase 83 (38-126) U/L Total Protein 6.0 L (6.3-8.2) g/dL Albumin 3.7 (3.5-5.0) g/dL Calcium panel 05/12/18 Range/Units 14:18 Calcium 8.8 (8.4-10.2) mg/dL Albumin 3.7 (3.5-5.0) g/dL Pituitary panel 05/12/18 Range/Units 14:18 Sodium 140 (137-145) mmol/L Potassium 4.1 (3.5-5.1) mmol/L Chloride 111 H (98-107) mmol/L Carbon Dioxide 22 (22-30) mmol/L BUN 8 L (9-20) mg/dL Creatinine 0.71 (0.66-1.25) mg/dL Glucose 87 (74-99) mg/dL Calcium 8.8 (8.4-10.2) mg/dL Adrenal panel 05/12/18 Range/Units 14:18 Sodium 140 (137-145) mmol/L Potassium 4.1 (3.5-5.1) mmol/L Chloride 111 H (98-107) mmol/L Carbon Dioxide 22 (22-30) mmol/L BUN 8 L (9-20) mg/dL Creatinine 0.71 (0.66-1.25) mg/dL Glucose 87 (74-99) mg/dL Calcium 8.8 (8.4-10.2) mg/dL Total Bilirubin 0.3 (0.2-1.3) mg/dL AST 54 (17-59) U/L ALT 48 (21-72) U/L Alkaline Phosphatase 83 (38-126) U/L Total Protein 6.0 L (6.3-8.2) g/dL Albumin 3.7 (3.5-5.0) g/dL - Imaging EKG: image reviewed Additional studies: Cardiac catheterization films were reviewed with Dr. Galarza. Assessment and Plan (1) History of myocardial infarction Current Visit: No Status: Resolved Code(s): I25.2 - OLD MYOCARDIAL INFARCTION SNOMED Code(s): 730360654 (2) Hyperlipidemia Current Visit: Yes Status: Chronic Code(s): E78.5 - HYPERLIPIDEMIA, UNSPECIFIED SNOMED Code(s): 34946920 (3) Tobacco dependence Current Visit: Yes Status: Chronic Code(s): F17.200 - NICOTINE DEPENDENCE, UNSPECIFIED, UNCOMPLICATED SNOMED Code(s): 46180719 (4) Daily consumption of alcohol Current Visit: Yes Status: Chronic Code(s): WYE4459 - SNOMED Code(s): 943265665 (5) Acute coronary syndrome Current Visit: Yes Status: Acute Code(s): I24.9 - ACUTE ISCHEMIC HEART DISEASE, UNSPECIFIED SNOMED Code(s): 255918773 (6) Chest pain Current Visit: Yes Status: Acute Code(s): R07.9 - CHEST PAIN, UNSPECIFIED SNOMED Code(s): 81881730 (7) Essential hypertension Current Visit: Yes Status: Chronic Code(s): I10 - ESSENTIAL (PRIMARY) HYPERTENSION SNOMED Code(s): 66766866 (8) Non-STEMI (non-ST elevated myocardial infarction) Current Visit: Yes Status: Acute Code(s): I21.4 - NON-ST ELEVATION (NSTEMI) MYOCARDIAL INFARCTION SNOMED Code(s): 392312459 (9) Presence of stent in coronary artery in patient with coronary artery disease Current Visit: Yes Status: Chronic Code(s): I25.10 - ATHSCL HEART DISEASE OF [place] CORONARY ARTERY W/O ANG PCTRS; Z95.5 - PRESENCE OF CORONARY ANGIOPLASTY IMPLANT AND GRAFT SNOMED Code(s): 604299846 Plan: The patient was seen and examined at the bedside. Chart/diagnostics and heart catheterization were reviewed with Dr. Galarza. Off-pump coronary artery bypass grafting surgery was recommended to the patient. All risks and benefits were reviewed, all questions were answered, and the patient consented to surgery. Preoperative testing was initiated. Preoperative teaching was initiated. At this time we recommend continuing aspirin, statin, beta sagrario. Discontinue Plavix. Our plan is to do off-pump coronary artery bypass grafting 2 vessels with left internal mammary artery and endoscopic vein harvesting and intraoperative transesophageal echocardiogram next , 05/20/2018 pending results of preoperative testing. This plan was discussed with the patient and he is in agreement. The patient may be discharged home today after all preoperative testing has been completed. Thank you Dr. Silva for this consult. We look forward to working with you in the care of this patient. Time with Patient: Greater than 30
[2018-05-12 16:09] VITALS: BP 132/78; PULSE 56; RESP 16; TEMP 97.3
--- NOTE | 2018-05-12 16:36 | XR ---
EXAMINATION TYPE: XR chest 2V DATE OF EXAM: 05/12/2018 COMPARISON: Chest x-ray January 11, 2014 HISTORY: 3 open cardiac surgery. TECHNIQUE: Frontal and lateral views of the chest are obtained. FINDINGS: There is no focal air space opacity, pleural effusion, or pneumothorax seen. Calcified nod ule or granuloma right upper lobe is redemonstrated and felt stable. The cardiac silhouette size is w ithin normal limits. The osseous structures are intact. IMPRESSION: No acute cardiopulmonary process. No significant change from prior.
--- NOTE | 2018-05-12 16:36 | US ---
EXAMINATION TYPE: US carotid duplex BILAT DATE OF EXAM: 05/12/2018 COMPARISON: NONE CLINICAL HISTORY: preop cardiac surgery. EXAM MEASUREMENTS: RIGHT: Peak Systolic Velocity (PSV) cm/sec ----- Right CCA: 74.5 ----- Right ICA: 110.5 ----- Right ECA: 103.9 ICA/CCA ratio: 1.5 RIGHT: End Diastole cm/sec ----- Right CCA: 22.7 ----- Right ICA: 38.9 ----- Right ECA: 103.9 LEFT: Peak Systolic Velocity (PSV) cm/sec ----- Left CCA: 121.7 ----- Left ICA: 83.1 ----- Left ECA: 151.3 ICA/CCA ratio: 0.7 LEFT: End Diastole cm/sec ----- Left CCA: 36.0 ----- Left ICA: 30.0 ----- Left ECA: 28.5 VERTEBRALS (direction of flow): Right Vertebral: Antegrade Left Vertebral: Antegrade Rhythm: Normal Grayscale images show moderate eccentric hyperechoic plaque at bilateral carotid bulbs. Velocity lester urements and ratios in visualized portion of both internal carotid arteries however remains within no rmal limits. IMPRESSION: Moderate atherosclerotic change bilaterally without hemodynamically significant stenosis seen in either internal carotid artery . Criteria for Assigning % of Stenosis / Diameter reduction (Estimation based on the indirect measurements of the internal carotid artery velocities (ICA PSV). 1. Normal (no stenosis)=ICA PSV < 125 cm/s: ratio < 2.0: ICA EDV<40 cm/s. 2. Less than 50% stenosis=ICA PSV < 125 cm/s: ratio < 2.0: ICA EDV<40 cm/s. 3. 50 to 69% stenosis=ICA PSV of 125 to 230 cm/s: ration 2.0 ? 4.0: ICA EDV 40-100 cm/s. 4. Greater than 70% stenosis to near occlusion= ICA PSV > 230 cm/s: ratio > 4.0: ICA EDV > 100 cm/s. 5. Near occlusion= ICA PSV velocities may be low or undetectable: variable ratio and ICA EDV. 6. Total occlusion=unable to detect flow.
[2018-05-12 16:56] LABS: Appearance,Urine Clear (Clear); Bilirubin,Urine Negative (Negative); Blood,Urine Negative (Negative); Color,Urine Colorless; Glucose,Urine (UA) Negative (Negative); Ketones,Urine Negative (Negative); Leukocyte Esterase,Urine Negative (Negative); Nitrite,Urine Negative (Negative); PH, Urine 6.5 (5.0-8.0); Protein,Urine Negative (Negative); Specific Gravity,Urine 1.004 (1.001-1.035); Urobilinogen,Urine <2.0 mg/dL (<2.0)
[2018-05-12] MEDS ORDERED: MUPIROCIN 2% OINT 22 GM TUBE NASAL SCH (21:00)
[2018-05-13 01:56] LABS: Hemoglobin A1C 5.1 % (4.0-6.0)
== END 2018-05-12 17:21 | disposition home or self-care (01) | DRG 281 ==
LOC: EC 01:18 → 6SEL 01:52 → OBSVTOIN 15:40
PROVIDERS: ADMIT Internal Medicine; ATTEND Internal Medicine
PROC: B211YZZ Fluoroscopy of Multiple Coronary Arteries using Other Contrast (ICD-10-PCS; 2018-05-12)
PROC: 4A023N7 Measurement of Cardiac Sampling and Pressure, Left Heart, Percutaneous Approach (ICD-10-PCS; principal; 2018-05-12 10:36)
DX: I21.4 Non-ST elevation (NSTEMI) myocardial infarction (principal); T82.855A Stenosis of coronary artery stent, initial encounter; I25.2 Old myocardial infarction; I10 Essential (primary) hypertension; R00.1 Bradycardia, unspecified; E78.5 Hyperlipidemia, unspecified; I25.110 Atherosclerotic heart disease of native coronary artery with unstable angina pectoris; R91.1 Solitary pulmonary nodule; N40.0 Benign prostatic hyperplasia without lower urinary tract symptoms; M19.91 Primary osteoarthritis, unspecified site; F17.210 Nicotine dependence, cigarettes, uncomplicated; Z71.6 Tobacco abuse counseling; Z79.82 Long term (current) use of aspirin; Z79.02 Long term (current) use of antithrombotics/antiplatelets; Z79.890 Hormone replacement therapy; Z79.899 Other long term (current) drug therapy; Z87.01 Personal history of pneumonia (recurrent); Z80.8 Family history of malignant neoplasm of other organs or systems; Z82.49 Family history of ischemic heart disease and other diseases of the circulatory system; Y84.0 Cardiac catheterization as the cause of abnormal reaction of the patient, or of later complication, without mention of misadventure at the time of the procedure; Y83.1 Surgical operation with implant of artificial internal device as the cause of abnormal reaction of the patient, or of later complication, without mention of misadventure at the time of the procedure
CPT/HCPCS: 71046; 80053; 80061; 80074; 81003; 82550; 82553; 83036; 83735; 84443; 84484; 85025; 85610; 85730; 86850; 86900; 86901; 86920; 87070; 87086; 93005; 93306; 93458; 93880; 93970; 96365; 96366; 96368; 99291

== ENCOUNTER 2018-05-20 05:21 | Inpatient (IN) | payer BC ==
[2018-05-13 01:46] LABS: Hepatitis A Antibody IgM Non-Reactive (Non-Reactive); Hepatitis B Core IgM Non-Reactive (Non-Reactive)
[~2018-05-20 05:21] MED LIST: ALBUMIN HUMAN 25% 50 ML IV ONE; ALBUMIN HUMAN 5% 500 ML IVPB ONE; ASPIRIN 325 MG TAB PO ONE; ATORVASTATIN 10 MG TAB PO ONE; CALCIUM CHLORIDE 100 MG/ML 10 ML SYRINGE IV ONE; CARDIOPLEGIC SOLN (K+ 16 MEQ/L 1,000 ML with SODIUM BICARB (1 MEQ/ML) 20 ML, LIDOCAINE ... PERFUSION ONE; CHLORHEXIDINE GLUCONATE 15 ML CUP MUCOUS MEM ONE; CLEVIDIPINE BUTYRATE 25 MG in EMPTY BAG 1 BAG IV ONE; HEPARIN SODIUM 1,000 UN/ML (10ML VL) IV ONE; HEPARIN SODIUM,PORCINE 5,000 UNIT in SODIUM CHLORIDE 0.9% 500 ML IV ONE; INSULIN REGULAR 100 UNIT in SODIUM CHLORIDE 0.9% 100 ML IV ONE; LACTATED RINGERS 1,000 ML IV ONE; MAGNESIUM SULFATE MG 500 MG/ML VIAL IV ONE; MANNITOL 25% 12.5 GM/50 ML VIAL IV ONE; METOPROLOL TARTRATE 12.5 MG TAB PO ONE; MUPIROCIN 2% OINT 22 GM TUBE NASAL ONE; NITROGLYCERIN SL TABS 0.4 MG TAB SUBLINGUAL ONE; NITROGLYCERIN-D5W PMX 25 MG/250 ML BTL IV ONE; NITROGLYCERIN-D5W PMX 50 MG in DEXTROSE/WATER 1 250ML.BAG IV ONE; NOREPINEPHRINE 4 MG in DEXTROSE 5% IN WATER 250 ML IV ONE; PAPAVERINE 360 MG in SODIUM CHLORIDE 0.9% 90 ML IV ONE; PHENYLEPHRINE 40 MG in SODIUM CHLORIDE 0.9% 250 ML IV ONE; PHENYLEPHRINE-0.9% NACL SYG 1 MG/10 ML SYRINGE IV ONE; PROPOFOL 1,000 MG/100 ML VIAL IV ONE; PROTAMINE SULFATE 10 MG/ML 25 ML VIAL IV ONE; PROTAMINE SULFATE 250 MG in EMPTY BAG 1 BAG IV ONE; SODIUM BICARB 8.4% 50 ML SYR (1 MEQ/ML) IV ONE; SODIUM CHLORIDE 0.9% 1,000 ML IV ONE; TRANEXAMIC ACID 2,000 MG in SODIUM CHLORIDE 0.9% 180 ML IV ONE; ceFAZolin 1,000 MG in SODIUM CHLORIDE 0.9% IRRIGATIO 1,000 ML IRRIGATION ONE; ceFAZolin 2,000 MG in SODIUM CHLORIDE 0.9% 30 ML IVPB ONE
[2018-05-20 08:43] LABS: ABG Base Excess -2.4 mmol/L; ABG HCO3 22 mmol/L (21-25); ABG PCO2 37 mmHg (35-45); ABG PH 7.39 (7.35-7.45); ABG Sodium Whole Blood 142 mmol/L (135-146); ABG TCO2 23 mmol/L (19-24)
[2018-05-20 09:32] LABS: ABG PO2 >420 mmHg (83-108)
[2018-05-20 10:10] LABS: ABG HCO3 23 mmol/L (21-25); ABG Oxygen Saturation 99.8 % (94-97); ABG PCO2 45 mmHg (35-45); ABG PH 7.32 (7.35-7.45); ABG PO2 289 mmHg (83-108); ABG Potassium Whole Blood 4.4 mmol/L (3.4-4.5); ABG Sodium Whole Blood 142 mmol/L (135-146); ABG TCO2 25 mmol/L (19-24)
[2018-05-20 10:54] LABS: ABG Base Excess -2.5 mmol/L; ABG HCO3 23 mmol/L (21-25); ABG Oxygen Saturation 99.8 % (94-97); ABG PCO2 44 mmHg (35-45); ABG PH 7.33 (7.35-7.45); ABG PO2 292 mmHg (83-108); ABG Potassium Whole Blood 4.5 mmol/L (3.4-4.5); ABG Sodium Whole Blood 141 mmol/L (135-146); ABG TCO2 25 mmol/L (19-24)
[2018-05-20 11:32] LABS: ABG Base Excess -3.7 mmol/L; ABG HCO3 23 mmol/L (21-25); ABG Oxygen Saturation 99.5 % (94-97); ABG PCO2 45 mmHg (35-45); ABG PH 7.31 (7.35-7.45); ABG PO2 241 mmHg (83-108); ABG Potassium Whole Blood 4.2 mmol/L (3.4-4.5); ABG Sodium Whole Blood 141 mmol/L (135-146); ABG TCO2 24 mmol/L (19-24)
--- NOTE | 2018-05-20 12:11 | P.OP ---
Date of Procedure: 05/20/18 Preoperative Diagnosis: Coronary artery disease Postoperative Diagnosis: Same Procedure(s) Performed: Off pump coronary artery bypass grafting 3 with CORTES to LAD and saphenous vein grafts to posterior descending coronary artery and diagonal coronary artery with endovascular harvest of the left greater saphenous vein Anesthesia: MAURICIO Surgeon: Lan Galarza Document Manager #1: Noam Segovia Document Manager #2: Javier Kamara Estimated Blood Loss (ml): 200 IV fluids (ml): 2,000 Urine output (ml): 500 Pathology: none sent Condition: stable Disposition: ICU Indications for Procedure: 58-year-old male presents with recurrent angina, history of previous coronary artery disease and previous coronary artery stenting. Elective cardiac catheterization was performed last week and demonstrated severe stenosis of the left anterior descending both within the sent and without the stent, complete occlusion of the stented diagonal branch, severe diffuse disease in the right coronary artery. Surgical revascularization was recommended. Ventricular function was well-preserved. Operative Findings: Coronary arteries were relatively disease-free in the areas bypass. The LAD was a 1.75 mm vessel. PDA was a 1.5 mm vessel. The diagonal was a 1.25 mm vessel. Saphenous vein was good, left internal mammary artery was good. Aorta was soft. Ventricular function and valvular function were both normal by ADONIS pre-and postoperatively. Description of Procedure: The patient was brought to the operating room, placed supine on the operating table, anesthetized and intubated. [place]-Jennifer catheter been placed in the preop holding area and was floated now. Du and nasogastric tubes were placed in the ADONIS probe was placed. The anterior torso and lower extremities were sterilely prepped and draped in standard fashion. Left greater saphenous vein was harvested from mid calf to groin and was of reasonable quality. Simultaneous sternotomy was performed, the left hemisternum retracted upwards, left internal mammary artery was harvested on a vascularized pedicle and left intact on its origin from the subclavian. The left pleural space was drained with a 32-[place]og[place] chest tube. Standard sternal retractor was placed and the pericardium was opened in the midline. The heart was exposed with pericardial sutures. Suction stabilization was used during the distal anastomoses. Patient was systemically heparinized and the a CTs were maintained greater than 250 during grafting. CORTES to the LAD was performed first. The LAD was a heavily diseased and stented artery approximately which was grafted in its midportion. Here the vessel was soft. It was opened and blood flow control the 1.5 mm flow through. It was a 1.75 mm vessel. Anastomosis of the CORTES to the LAD was performed with running 8-0 Prolene suture in end-to-side fashion. On completion of the anastomosis the flow through was removed effectively probing the proximal distal portion anastomosis. Suture was tied with good result and hemostasis and the inflow was open. The ESTHER pedicle was tacked surrounding epicardium with 6-0 silk. Next the saphenous vein was cut to appropriate length to reach the diagonal and posterior descending coronary arteries. The pieces of vein were loaded on passport anastomotic connectors and connected to the ascending aorta without incident. Flow was controlled with bulldog clamps. The diagonal coronary artery was stabilized and exposed. It was a 1.5 mm vessel externally and it was opened. It was proximally occluded. A 1.5 probe did pass distally but barely and required some stretching. Vein graft to the diagonal was performed with running 8-0 Prolene suture. On completion of the anastomosis was probed distally and noted to be patent. Suture was tied with resultant hemostasis and the inflow was open. Graft lay well. Next the inferior wall was exposed and the posterior descending coronary artery was stabilized and opened proximally. It was a 1.5 mm vessel. Blood flow was controlled with a 1.5 mm flow through. Saphenous vein was anastomosed in an inside fashion with running 7-0 Prolene suture. Completion anastomosis the flow through was removed effectively probing the proximal distal portion anastomosis. Suture was tied with good result and hemostasis and the inflow was open. Graft was noted to lay well. Heparin was reversed with protamine and good hemostasis was obtained throughout. The mediastinum was drained with 36-Togolese chest tube. After assuring good hemostasis, the chest was irrigated with antibiotic solution and the mediastinum was drained with 36-Togolese chest tube. Sternum was closed with 8 sternal wires. Fascia was closed with 0 Ethibond. The subcutaneous and subcuticular layers in the leg and chest were closed with layers of Vicryl suture. Dry sterile dressings were applied and the patient was transferred to the ICU in stable hemodynamic condition on no inotropic support. Shed blood was returned to the patient via the Cell Saver. No other transfusions were required.
[2018-05-20] MEDS ORDERED: CLEVIDIPINE BUTYRATE 25 MG in EMPTY BAG 1 BAG IV SCH (12:23)
[2018-05-20] MEDS ORDERED: Potassium Replacement Protocol 1 EACH MISC MISCELLANE PRN (12:23)
[2018-05-20] MEDS ORDERED: CALCIUM CHLORIDE 1,000 MG in SODIUM CHLORIDE 0.9% 100 ML IV PRN (12:23)
[2018-05-20] MEDS ORDERED: PROPOFOL 1,000 MG in EMPTY BAG 1 BAG IV SCH (12:23)
[2018-05-20] MEDS ORDERED: NITROGLYCERIN-D5W PMX 50 MG in DEXTROSE/WATER 1 250ML.BAG IV SCH (12:23)
[2018-05-20] MEDS ORDERED: Phosphorus Replacement Protoco 1 EACH MISC MISCELLANE PRN (12:23)
[2018-05-20] MEDS ORDERED: INSULIN REGULAR 100 UNIT in SODIUM CHLORIDE 0.9% 100 ML IV SCH (12:23)
[2018-05-20] MEDS ORDERED: DEXTROSE 5% IN WATER 100 ML with AMIODARONE 150 MG IV PRN (12:23)
[2018-05-20] MEDS ORDERED: BENZOCAINE/MENTHOL LOZENG 1 EACH LOZENGE MUCOUS MEM PRN (12:23)
[2018-05-20] MEDS ORDERED: IPRATROPIUM-ALBUTEROL 3 ML NEB INHALATION PRN (12:23)
[2018-05-20] MEDS ORDERED: ONDANSETRON 4 MG/2 ML VIAL IVP PRN (12:23)
[2018-05-20] MEDS ORDERED: METOCLOPRAMIDE 5 MG/ML 2 ML VIAL IVP PRN (12:23)
[2018-05-20] MEDS ORDERED: Magnesium Replacement Protocol 1 EACH MISC MISCELLANE PRN (12:23)
--- NOTE | 2018-05-20 13:07 | XR ---
EXAMINATION TYPE: XR chest 1V portable DATE OF EXAM: 05/20/2018 COMPARISON: 05/12/2018 HISTORY: Postop cardiac surgery TECHNIQUE: Single frontal view of the chest is obtained. FINDINGS: Calcified granuloma right upper lobe. There is a area of consolidation left upper lobe per ihilar region. Suggestion of coronary stenting. ET and NG tube, [place]-Jennifer catheter, mediastinal drain and chest tube noted. ET tube approximately 5 cm above mil. Tip of [place]-Jennifer catheter overlies pr oximal pulmonary outflow tract. IMPRESSION: 1. Postsurgical changes. There is a new area of consolidation in the left upper lobe. This could been the basis of postoperative atelectasis although an area of infiltrate in the differential diagnosis.
[2018-05-20 13:08] LABS: Glucose,Whole Blood 89 mg/dL (75-99)
[2018-05-20 13:11] LABS: Basophils # (A) 0.1 k/uL (0-0.2); Basophils % (A) 1 %; Eosinophils # (A) 0.2 k/uL (0-0.7); Eosinophils % (A) 2 %; HCT 30.9 % (39.0-53.0); HGB 10.6 gm/dL (13.0-17.5); Lymphocytes # (A) 1.6 k/uL (1.0-4.8); Lymphocytes % (A) 16 %; MCH 31.9 pg (25.0-35.0); MCHC 34.2 g/dL (31.0-37.0); MCV 93.5 fL (80.0-100.0); Mean Platelet Volume 7.4; Monocytes # (A) 0.5 k/uL (0-1.0); Monocytes % (A) 5 %; Neutrophils # (A) 7.6 k/uL (1.3-7.7); Neutrophils % (A) 75 %; Platelet Count 163 k/uL (150-450); RBC 3.31 m/uL (4.30-5.90); RDW 13.7 % (11.5-15.5); WBC 10.1 k/uL (3.8-10.6)
[2018-05-20 13:19] LABS: ABG Base Excess -3.4 mmol/L; ABG HCO3 23 mmol/L (21-25); ABG PCO2 45 mmHg (35-45); ABG PH 7.31 (7.35-7.45); ABG PO2 >400 mmHg (83-108); ABG TCO2 24 mmol/L (19-24)
[2018-05-20 13:22] LABS: INR 1.2 (<1.2); Partial Thromboplastin Time 31.8 sec (22.0-30.0); Prothrombin Time 11.2 sec (9.0-12.0)
[2018-05-20 13:31] LABS: ALT 31 U/L (21-72); AST 18 U/L (17-59); Albumin 2.9 g/dL (3.5-5.0); Alkaline Phosphatase 42 U/L (38-126); Anion Gap 4 mmol/L; Blood Urea Nitrogen 14 mg/dL (9-20); Calcium 7.6 mg/dL (8.4-10.2); Carbon Dioxide 22 mmol/L (22-30); Chloride 113 mmol/L (98-107); Glucose 86 mg/dL (74-99); Magnesium 2.1 mg/dL (1.6-2.3); Potassium 4.4 mmol/L (3.5-5.1); Sodium 139 mmol/L (137-145); Total Bilirubin 0.2 mg/dL (0.2-1.3); Total Protein 4.7 g/dL (6.3-8.2)
[2018-05-20] MEDS: LACTATED RINGERS 1,000 ML IV SCH (13:45)
[2018-05-20 14:04] LABS: Glucose,Whole Blood 95 mg/dL (75-99)
--- NOTE | 2018-05-20 14:08 | CONS ---
CONSULTATION Mr. Dean is a 58-year-old male who was admitted electively to undergo coronary artery bypass grafting. He has a known history of coronary artery disease, status post multiple percutaneous revascularization who presented recently with evidence of non ST- segment elevation myocardial infarction and underwent cardiac catheterization and at that time, was found to have significant in-stent restenoses in the LAD, totally occluded diagonal branch. Patient has underwent stenting of the RCA in the past and stenting of the LAD. He is intubated and sedated at this time. During his last admission last week he underwent an echocardiogram that showed a preserved ventricular size and systolic function. His coronary risk factors are remarkable for history of hypertension, hyperlipidemia. He is nondiabetic. MEDICATION: As an outpatient include Lipitor 20 mg daily, atenolol 25 mg twice a day, lisinopril 2.5 mg daily and aspirin once a day in addition to Flomax. REVIEW OF SYSTEMS: Could not be obtained. PHYSICAL EXAMINATION: He is a 58-year-old male, intubated, sedated, blood pressure 131/60 with a heart rate in the 60s. HEAD: Normocephalic. EYES: Sclerae nonicteric. NECK: There is a [place]-Jennifer catheter noted in the right IJ. LUNGS: Clear to auscultation anteriorly. HEART: Regular rate and rhythm, S1, S2. No S3. No rub appreciated. ABDOMEN: Soft, hypoactive bowel sounds. No organomegaly. EXTREMITIES: Morales wrap in place. LAB DATA: Revealed a hemoglobin of 10.6, BUN and creatinine 14 and 0.6. IMPRESSION: 1. Status post bypass grafting with CORTES to LAD, saphenous vein graft to the diagonal branch and to the RCA. 2. History of hypertension. 3. Hyperlipidemia. RECOMMENDATION: We will continue under routine postoperative care. Once extubated, he will be re- initiated on his beta sagrario and statin. Thank you for this consult. We will follow with you. MMODL / IJN: [id number] /
[2018-05-20] MEDS: KETOROLAC 30 MG/ML 1 ML VIAL IVP SCH ×2 (14:16→18:17)
[2018-05-20 14:56] LABS: Glucose,Whole Blood 98 mg/dL (75-99)
[2018-05-20 14:58] LABS: ABG Base Excess -3.6 mmol/L; ABG HCO3 23 mmol/L (21-25); ABG Oxygen Saturation 99.2 % (94-97); ABG PCO2 47 mmHg (35-45); ABG PO2 138 mmHg (83-108); ABG TCO2 24 mmol/L (19-24)
[2018-05-20] MEDS: ceFAZolin IN SWFI 2 GM/20 ML SYRINGE IVP SCH ×2 (15:18→23:43)
--- NOTE | 2018-05-20 15:44 | P.CNPUL ---
History of Present Illness Consult date: 05/20/18 Chief complaint: Status post three-vessel bypass grafting History of present illness: Pulmonary consult dated 05/20/2018 This is a 57-year-old gentleman who underwent a three-vessel bypass grafting today. Today's postop day #0. He has a history of CAD with previous myocardial infarction with stent placement, hypertension, hyperlipidemia, tobacco dependence, remote history of pneumonia, history of vein stripping and daily alcohol use. The patient initially presented with chest pain and was ruled in for a non-ST segment elevation myocardial infarction. For this reason he underwent additional cardiac testing and catheterization which showed severe disease involving the mid and distal right coronary artery and moderate to severe disease involving the proximal left anterior descending artery with severe in-stent restenosis of the mid LAD. His ejection fraction was excellent at 55-60% and Dr. Galarza was consulted for that reason. The patient is in the ICU currently. He had a off pump three-vessel bypass grafting. His initial arterial blood gases showed a PaO2 greater than 400 a PaCO2 of 45 and a pH 7.311. His weaning parameters were excellent. He is awake and alert. If his cuff leaks, he will be extubated. All sedation is been off for quite some time. Review of Systems ROS unobtainable: due to endotracheal tube Past Medical History Past Medical History: Coronary Artery Disease (CAD), Chest Pain / Angina, Hyperlipidemia, Hypertension, Myocardial Infarction ([place]), Osteoarthritis (OA), Pneumonia, Prostate Disorder Additional Past Medical History / Comment(s): Past BPH but pt said a recent physical showed no longer a problem, nodule on lung being monitored. Last Myocardial Infarction Date:: 2003 History of Any Multi-Drug Resistant Organisms: None Reported Past Surgical History: Heart Catheterization, Heart Catheterization With Stent, Orthopedic Surgery, Tonsillectomy Additional Past Surgical History / Comment(s): Pt states he has a total of 13 stents with last stenting done in 2016, L knee arthroscopy Past Anesthesia/Blood Transfusion Reactions: No Reported Reaction Date of Last Stent Placement:: 2015 Smoking Status: Former smoker - Past Family History Father Family Medical History: Cancer, Coronary Artery Disease (CAD) Additional Family Medical History / Comment(s): Father had CABG done twice. He is from a cancer that involved his bones at the age of 80yrs. Mother Family Medical History: No Reported History Medications and Allergies Home Medications Medication Instructions Recorded Confirmed Type Nitroglycerin Sl Tabs [Nitrostat] 0.4 mg SUBLINGUAL Q5M PRN #20 tab 04/12/16 Rx Atenolol [Tenormin] 25 mg PO BID 05/10/18 05/20/18 History Lisinopril [Zestril] 2.5 mg PO DAILY 05/10/18 05/20/18 History Tamsulosin [Flomax] 0.4 mg PO DAILY 05/10/18 05/20/18 History Aspirin 325 mg PO DAILY #60 tab 05/12/18 05/20/18 Rx Mupirocin 2% Oint [Bactroban 2% 1 applic NASAL BID #1 tube 05/12/18 05/20/18 Rx Oint] Calcium Polycarbophil [Fibercon] 625 mg PO DAILY 05/17/18 05/20/18 History Clopidogrel [Plavix] 75 mg PO DAILY 05/17/18 05/20/18 History Multivitamin [Men's Multi-Vitamin] 1 tab PO DAILY 05/17/18 05/20/18 History Atorvastatin [Lipitor] 20 mg PO HS 05/20/18 05/20/18 History Cholecalciferol [Vitamin D3] 400 unit PO DAILY 05/20/18 05/20/18 History Allergies Allergy/AdvReac Type Severity Reaction Status Date / Time No Known Allergies Allergy Verified 05/20/18 12:14 Physical Exam Osteopathic Statement: *. No significant issues noted on an osteopathic structural exam other than those noted in the History and Physical/Consult. Vitals: Vital Signs Temp Pulse Pulse Resp BP BP Pulse Ox 05/20/18 12:23 100 05/20/18 05:57 97.8 F 60 66 18 131/62 136/83 97 Intake and Output 05/20/18 05/20/18 05/20/18 06:59 14:59 22:59 Intake Total 43.863 Output Total 1400 Balance -1356.137 Intake: IV 33 Intake, IV Titration 10.863 Amount Clevidipine Butyrate 25 1.433 mg In Empty Bag 1 bag @ 1 MG/HR 2 mls/hr IV .Q24H [facility] Rx#:[id number] Propofol 1,000 mg In 9.43 Empty Bag 1 bag @ Titrate IV .Q0M [facility] Rx#: [id number] Output: Urine 200 Estimated Blood Loss 1200 Other: Weight 78.6 kg No acute distress, oriented, endotracheal tube in place. He seems quite awake and responsive. HEENT examination is grossly unremarkable. Mucous membranes are moist. No oral lesions. Neck supple. Full range of motion. No adenopathy thyromegaly or neck vein distention. Cardiovascular examination reveals regular rhythm rate. S1-S2 normal. No S3 or S4. No discernible murmur noted. Lungs reveal mostly clear breath sounds. Breath sounds are equal bilaterally. A few scattered rhonchi are noted. Abdomen soft bowel sounds are heard. No masses or tenderness. Extremities are intact. No cyanosis clubbing or edema. Skin is without rash or lesion. Neurologic examination is difficult to assess Results - Laboratory Findings CBC and BMP: 05/20/18 12:50 05/20/18 12:50 ABG ABG pH 7.30 (7.35-7.45) L 05/20/18 14:51 ABG pCO2 47 mmHg (35-45) H 05/20/18 14:51 ABG pO2 138 mmHg (83-108) H 05/20/18 14:51 ABG O2 Saturation 99.2 % (94-97) H 05/20/18 14:51 PT/INR, D-dimer PT 11.2 sec (9.0-12.0) 05/20/18 12:50 INR 1.2 (<1.2) H 05/20/18 12:50 Abnormal lab findings: Abnormal Labs 05/12/18 05/12/18 05/20/18 14:18 14:18 08:45 RBC Hgb Hct INR APTT ABG pH ABG pCO2 ABG pO2 >420 H ABG Total CO2 ABG O2 Saturation 100.0 H ABG Hematocrit ABG Glucose Hemoglobin 12.4 L Chloride Creatinine Calcium Total Protein Albumin Arterial Blood Glucose Hep C IgG Ab Reactive H Crossmatch See Detail 05/20/18 05/20/18 05/20/18 10:12 10:56 11:34 RBC Hgb Hct INR APTT ABG pH 7.32 L 7.33 L 7.31 L ABG pCO2 ABG pO2 289 H 292 H 241 H ABG Total CO2 25 H 25 H ABG O2 Saturation 99.8 H 99.8 H 99.5 H ABG Hematocrit 33 L 32 L ABG Glucose 112 H 106 H Hemoglobin 11.2 L 10.7 L 10.4 L Chloride Creatinine Calcium Total Protein Albumin Arterial Blood Glucose 112 H 106 H Hep C IgG Ab Crossmatch 05/20/18 05/20/18 05/20/18 12:50 12:50 12:50 RBC 3.31 L Hgb 10.6 L Hct 30.9 L INR 1.2 H APTT 31.8 H ABG pH ABG pCO2 ABG pO2 ABG Total CO2 ABG O2 Saturation ABG Hematocrit ABG Glucose Hemoglobin Chloride 113 H Creatinine 0.60 L Calcium 7.6 L Total Protein 4.7 L Albumin 2.9 L Arterial Blood Glucose Hep C IgG Ab Crossmatch 05/20/18 05/20/18 13:12 14:51 RBC Hgb Hct INR APTT ABG pH 7.31 L 7.30 L ABG pCO2 47 H ABG pO2 >400 H 138 H ABG Total CO2 ABG O2 Saturation 100.0 H 99.2 H ABG Hematocrit ABG Glucose Hemoglobin Chloride Creatinine Calcium Total Protein Albumin Arterial Blood Glucose Hep C IgG Ab Crossmatch - Diagnostic Findings Chest x-ray: report reviewed (Labs x-rays and medications are reviewed.), image reviewed Assessment and Plan Assessment: Assessment Postop day #0, status post three-vessel bypass grafting, done off pump. Postoperative respiratory failure, expected History of CAD with previous myocardial infarction Previous stent placement History of hypertension History of hyperlipidemia History of chronic tobacco dependence Remote history of pneumonia Previous history of vein stripping History of daily alcohol use Plan: Plan dated 05/20/2018 The patient's blood gases seem reasonable. He is awake and alert. Weaning parameters are excellent. He's mildly acidotic. He does arouse appropriately and has excellent tidal volumes and vital capacities. I've asked respiratory therapist to check a cuff leak. If positive, he can be extubated. He is currently not on any sedation. Hemodynamically he seems stable. Time with Patient: Greater than 30
[2018-05-20] MEDS: IPRATROPIUM-ALBUTEROL 3 ML NEB INHALATION SCH ×3 (15:46→19:52)
[2018-05-20 15:56] LABS: Glucose,Whole Blood 103 mg/dL (75-99)
[2018-05-20] MEDS ORDERED: IPRATROPIUM-ALBUTEROL 3 ML NEB INHALATION SCH (16:00)
[2018-05-20 16:12] LABS: Basophils # (A) 0.1 k/uL (0-0.2); Basophils % (A) 1 %; Eosinophils # (A) 0.1 k/uL (0-0.7); Eosinophils % (A) 1 %; HGB 11.2 gm/dL (13.0-17.5); Lymphocytes # (A) 1.4 k/uL (1.0-4.8); Lymphocytes % (A) 14 %; MCH 31.4 pg (25.0-35.0); MCHC 33.9 g/dL (31.0-37.0); MCV 92.8 fL (80.0-100.0); Mean Platelet Volume 7.3; Monocytes # (A) 0.6 k/uL (0-1.0); Monocytes % (A) 6 %; Neutrophils # (A) 7.6 k/uL (1.3-7.7); Neutrophils % (A) 76 %; Platelet Count 174 k/uL (150-450); RBC 3.56 m/uL (4.30-5.90); RDW 13.6 % (11.5-15.5); WBC 9.9 k/uL (3.8-10.6)
[2018-05-20 17:01] LABS: Glucose,Whole Blood 106 mg/dL (75-99)
[2018-05-20] MEDS: ACETAMINOPHEN IV (For NPO) 1,000 MG in EMPTY BAG 1 BAG IVPB SCH ×2 (17:42→23:43)
[2018-05-20 18:12] LABS: Glucose,Whole Blood 101 mg/dL (75-99)
[2018-05-20 19:10] LABS: Glucose,Whole Blood 100 mg/dL (75-99)
[2018-05-20 19:11] LABS: Basophils % (A) 0 %; Eosinophils # (A) 0.1 k/uL (0-0.7); Eosinophils % (A) 1 %; HCT 33.8 % (39.0-53.0); Lymphocytes # (A) 0.7 k/uL (1.0-4.8); Lymphocytes % (A) 7 %; MCHC 32.4 g/dL (31.0-37.0); MCV 92.7 fL (80.0-100.0); Mean Platelet Volume 7.4; Monocytes # (A) 0.7 k/uL (0-1.0); Monocytes % (A) 7 %; Neutrophils # (A) 8.4 k/uL (1.3-7.7); Neutrophils % (A) 84 %; Platelet Count 183 k/uL (150-450); RBC 3.65 m/uL (4.30-5.90); RDW 13.6 % (11.5-15.5); WBC 9.9 k/uL (3.8-10.6)
[2018-05-20 19:46] LABS: Glucose,Whole Blood 102 mg/dL (75-99)
[2018-05-20 20:52] LABS: Glucose,Whole Blood 110 mg/dL (75-99)
[2018-05-20] MEDS: MUPIROCIN 2% OINT 22 GM TUBE NASAL SCH (20:54)
[2018-05-20 21:51] LABS: Glucose,Whole Blood 107 mg/dL (75-99)
--- NOTE | 2018-05-20 22:14 | P.CONS ---
History of Present Illness - Reason for Consult Consult date: 05/20/18 medical management Requesting physician: Lan Galarza - Chief Complaint severe coronary artery disease - History of Present Illness 58-year-old male with history of severe coronary artery disease status post multiple stents and hypertension. Patient presented to the hospital about 10 days ago complaining of chest pain was diagnosed with non-STEMI (cath showed severe coronary artery disease and discussion was carried on with the patient decision was made the patient will benefit from open heart surgery for coronary artery bypass. Patient and family agreed upon that and surgery was planned in one week time. Now patient presented for open heart surgery, but this was consult for postoperative medical management. Patient tolerated procedure well he had underwent surgery today. Patient was intubated postop as expected and then was extubated with no complications. Currently he is in the ICU for postoperative management of CABG. Patient doing well denies any trouble breathing, headache, fevers or chills, coughing, abdominal pain, or any focal neurologic deficits. His chest pain is tolerable related to his recent surgery and controlled with pain medications. Patient reports no alcohol intake since last hospitalization. Chart review performed of his last hospitalization which also showed 2-D echocardiogram of the heart was performed showing left ventricular ejection fraction of 5560 percent. Review of Systems Pertinent positives as noted in HPI. All other systems were reviewed and are negative Past Medical History Past Medical History: Coronary Artery Disease (CAD), Chest Pain / Angina, Hyperlipidemia, Hypertension, Myocardial Infarction ([place]), Osteoarthritis (OA), Pneumonia, Prostate Disorder Additional Past Medical History / Comment(s): Past BPH but pt said a recent physical showed no longer a problem, nodule on lung being monitored. Last Myocardial Infarction Date:: 2003 History of Any Multi-Drug Resistant Organisms: None Reported Past Surgical History: Heart Catheterization, Heart Catheterization With Stent, Orthopedic Surgery, Tonsillectomy Additional Past Surgical History / Comment(s): Pt states he has a total of 13 stents with last stenting done in 2016, L knee arthroscopy Past Anesthesia/Blood Transfusion Reactions: No Reported Reaction Date of Last Stent Placement:: 2015 Smoking Status: Former smoker - Past Family History Father Family Medical History: Cancer, Coronary Artery Disease (CAD) Additional Family Medical History / Comment(s): Father had CABG done twice. He is from a cancer that involved his bones at the age of 80yrs. Mother Family Medical History: No Reported History Medications and Allergies Home Medications Medication Instructions Recorded Confirmed Type Nitroglycerin Sl Tabs [Nitrostat] 0.4 mg SUBLINGUAL Q5M PRN #20 tab 04/12/16 Rx Atenolol [Tenormin] 25 mg PO BID 05/10/18 05/20/18 History Lisinopril [Zestril] 2.5 mg PO DAILY 05/10/18 05/20/18 History Tamsulosin [Flomax] 0.4 mg PO DAILY 05/10/18 05/20/18 History Aspirin 325 mg PO DAILY #60 tab 05/12/18 05/20/18 Rx Mupirocin 2% Oint [Bactroban 2% 1 applic NASAL BID #1 tube 05/12/18 05/20/18 Rx Oint] Calcium Polycarbophil [Fibercon] 625 mg PO DAILY 05/17/18 05/20/18 History Clopidogrel [Plavix] 75 mg PO DAILY 05/17/18 05/20/18 History Multivitamin [Men's Multi-Vitamin] 1 tab PO DAILY 05/17/18 05/20/18 History Atorvastatin [Lipitor] 20 mg PO HS 05/20/18 05/20/18 History Cholecalciferol [Vitamin D3] 400 unit PO DAILY 05/20/18 05/20/18 History Allergies Allergy/AdvReac Type Severity Reaction Status Date / Time No Known Allergies Allergy Verified 05/20/18 12:14 Physical Exam Vitals: Vital Signs Temp Pulse Pulse Pulse Resp BP BP 05/20/18 20:06 72 05/20/18 20:00 77 16 05/20/18 19:52 72 05/20/18 19:30 76 12 05/20/18 19:00 81 14 05/20/18 18:30 82 05/20/18 18:00 81 05/20/18 17:30 83 97/63 05/20/18 17:00 86 97/63 05/20/18 16:30 78 97/63 05/20/18 16:25 05/20/18 16:00 97.2 F L 72 60 66 12 97/63 05/20/18 15:55 66 05/20/18 15:45 63 05/20/18 15:30 68 05/20/18 15:00 80 12 05/20/18 14:30 78 05/20/18 14:00 94.6 F L 70 12 05/20/18 13:30 58 L 05/20/18 13:00 93.2 F L 60 12 05/20/18 12:40 05/20/18 12:23 05/20/18 05:57 97.8 F 60 66 18 131/62 BP Pulse Ox 05/20/18 20:06 05/20/18 20:00 98 05/20/18 19:52 05/20/18 19:30 97 05/20/18 19:00 96 05/20/18 18:30 96 05/20/18 18:00 96 05/20/18 17:30 95 05/20/18 17:00 95 05/20/18 16:30 94 L 05/20/18 16:25 94 L 05/20/18 16:00 95 05/20/18 15:55 05/20/18 15:45 05/20/18 15:30 99 05/20/18 15:00 99 05/20/18 14:30 97 05/20/18 14:00 99 05/20/18 13:30 99 05/20/18 13:00 99 05/20/18 12:40 100 05/20/18 12:23 100 05/20/18 05:57 136/83 97 Intake and Output 05/20/18 05/20/18 05/20/18 06:59 14:59 22:59 Intake Total 101.863 284 Output Total 1725 645 Balance -1623.137 -361 Intake: IV 91 184 CO/CI 40 80 Lactated Ringers 1,000 ml 50 @ 50 mls/hr IV .Q20H SONIA Rx#:[id number] Pressure Bag 18 54 Intake, IV Titration 10.863 100 Amount Clevidipine Butyrate 25 1.433 mg In Empty Bag 1 bag @ 1 MG/HR 2 mls/hr IV .Q24H SONIA Rx#:[id number] Lactated Ringers 1,000 ml 100 @ 50 mls/hr IV .Q20H SONIA Rx#:[id number] Propofol 1,000 mg In 9.43 Empty Bag 1 bag @ Titrate IV .Q0M SONIA Rx#: [id number] Output: Chest Tube Drainage 100 380 Left Pleural/Mediastinal 100 380 Urine 425 265 Estimated Blood Loss 1200 Other: Voiding Method Indwelling Catheter Weight 78.6 kg ABP, PAP, CO, CI - Last 8 Hours Arterial Blood Pressure 111/64 Arterial Blood Pressure 117/64 Arterial Blood Pressure 116/66 Arterial Blood Pressure 107/60 Arterial Blood Pressure 106/60 Arterial Blood Pressure 96/59 Arterial Blood Pressure 102/65 Arterial Blood Pressure 102/56 Arterial Blood Pressure 95/54 Arterial Blood Pressure 99/54 Arterial Blood Pressure 111/63 Arterial Blood Pressure 109/61 Arterial Blood Pressure 113/70 Arterial Blood Pressure 126/66 Pulmonary Artery Pressure 29/18 Pulmonary Artery Pressure 37/22 Pulmonary Artery Pressure 32/19 Pulmonary Artery Pressure 33/20 Pulmonary Artery Pressure 30/20 Pulmonary Artery Pressure 31/18 Pulmonary Artery Pressure 24/15 Pulmonary Artery Pressure 25/16 Pulmonary Artery Pressure 25/18 Pulmonary Artery Pressure 29/18 Pulmonary Artery Pressure 36/25 Pulmonary Artery Pressure 27/17 Cardiac Output 5.9 Cardiac Output 5.8 Cardiac Output 6.3 Cardiac Output 6.3 Cardiac Output 6.3 Cardiac Output 6.3 Cardiac Output 6.3 Cardiac Output 5.2 Cardiac Output 5.2 Cardiac Output 5.2 Cardiac Output 5.2 Cardiac Output 5.6 Cardiac Index 3.0 Cardiac Index 2.9 Cardiac Index 3.2 Cardiac Index 2.6 Cardiac Index 2.8 Constitutional: No acute distress, conversant, pleasant Eyes: Anicteric sclerae, moist conjunctiva, no lid-lag Pupils equal round reactive to light ENMT: NC/AT Oropharynx clear, no erythema, or exudates Neck: Supple, FROM, no masses, or JVD No carotid bruits No thyromegaly Triple lumen central venous line in place over right side of neck Lungs: Good breath sounds bilaterally, deep breaths are limited due to recent surgery and pleuritic chest pain Chest tube in place Normal respiratory effort, no accessory muscle use Cardiovascular: Heart regular in rate and rhythm, No murmurs, gallops, or rubs No peripheral edema Abdominal: Soft Nontender, no guarding, rebound or rigidity Abdomen moving with respiration Normoactive bowel sounds No hepatomegaly, No splenomegaly No palpable mass No abdominal wall hernia noted Skin: Normal temperature, tone, texture, turgor No induration No subcutaneous nodules No rash, lesions No ulcers Extremities: Surgical dressing over bilateral lower extremities due to recent surgery of vein harvesting No digital cyanosis No clubbing Pedal pulses intact and symmetrical Radial pulses intact and symmetrical No calf tenderness Psychiatric: Alert and oriented to person, place and time Appropriate affect fair judgment Neuro Muscles Strength 4/5 in all 4 extremities Sensation to light touch grossly present throughout Cranial nerves II-XII grossly intact No focal sensory deficits Lymphatics: no palpable cervical or supraclavicular , or inguinal lymph nodes Results CBC & Chem 7: 05/20/18 18:55 05/20/18 12:50 Labs: Abnormal Lab Results - Last 24 Hours (Table) 05/12/18 05/20/18 05/20/18 Range/Units 14:18 08:45 10:12 RBC (4.30-5.90) m/uL Hgb (13.0-17.5) gm/dL Hct (39.0-53.0) % Neutrophils # (1.3-7.7) k/uL Lymphocytes # (1.0-4.8) k/uL INR (<1.2) APTT (22.0-30.0) sec ABG pH 7.32 L (7.35-7.45) ABG pCO2 (35-45) mmHg ABG pO2 >420 H 289 H (83-108) mmHg ABG Total CO2 25 H (19-24) mmol/L ABG O2 Saturation 100.0 H 99.8 H (94-97) % ABG Hematocrit (34.0-46.0) % ABG Glucose 112 H (75-99) mg/dL Hemoglobin 12.4 L 11.2 L (13.0-17.5) gm/dL Chloride (98-107) mmol/L Creatinine (0.66-1.25) mg/dL POC Glucose (mg/dL) (75-99) mg/dL Calcium (8.4-10.2) mg/dL Total Protein (6.3-8.2) g/dL Albumin (3.5-5.0) g/dL Arterial Blood Glucose 112 H (75-99) mg/dL Crossmatch See Detail 05/20/18 05/20/18 05/20/18 Range/Units 10:56 11:34 12:50 RBC 3.31 L (4.30-5.90) m/uL Hgb 10.6 L (13.0-17.5) gm/dL Hct 30.9 L (39.0-53.0) % Neutrophils # (1.3-7.7) k/uL Lymphocytes # (1.0-4.8) k/uL INR (<1.2) APTT (22.0-30.0) sec ABG pH 7.33 L 7.31 L (7.35-7.45) ABG pCO2 (35-45) mmHg ABG pO2 292 H 241 H (83-108) mmHg ABG Total CO2 25 H (19-24) mmol/L ABG O2 Saturation 99.8 H 99.5 H (94-97) % ABG Hematocrit 33 L 32 L (34.0-46.0) % ABG Glucose 106 H (75-99) mg/dL Hemoglobin 10.7 L 10.4 L (13.0-17.5) gm/dL Chloride (98-107) mmol/L Creatinine (0.66-1.25) mg/dL POC Glucose (mg/dL) (75-99) mg/dL Calcium (8.4-10.2) mg/dL Total Protein (6.3-8.2) g/dL Albumin (3.5-5.0) g/dL Arterial Blood Glucose 106 H (75-99) mg/dL Crossmatch 05/20/18 05/20/18 05/20/18 Range/Units 12:50 12:50 13:12 RBC (4.30-5.90) m/uL Hgb (13.0-17.5) gm/dL Hct (39.0-53.0) % Neutrophils # (1.3-7.7) k/uL Lymphocytes # (1.0-4.8) k/uL INR 1.2 H (<1.2) APTT 31.8 H (22.0-30.0) sec ABG pH 7.31 L (7.35-7.45) ABG pCO2 (35-45) mmHg ABG pO2 >400 H (83-108) mmHg ABG Total CO2 (19-24) mmol/L ABG O2 Saturation 100.0 H (94-97) % ABG Hematocrit (34.0-46.0) % ABG Glucose (75-99) mg/dL Hemoglobin (13.0-17.5) gm/dL Chloride 113 H (98-107) mmol/L Creatinine 0.60 L (0.66-1.25) mg/dL POC Glucose (mg/dL) (75-99) mg/dL Calcium 7.6 L (8.4-10.2) mg/dL Total Protein 4.7 L (6.3-8.2) g/dL Albumin 2.9 L (3.5-5.0) g/dL Arterial Blood Glucose (75-99) mg/dL Crossmatch 05/20/18 05/20/18 05/20/18 Range/Units 14:51 15:50 15:54 RBC 3.56 L (4.30-5.90) m/uL Hgb 11.2 L (13.0-17.5) gm/dL Hct 33.0 L (39.0-53.0) % Neutrophils # (1.3-7.7) k/uL Lymphocytes # (1.0-4.8) k/uL INR (<1.2) APTT (22.0-30.0) sec ABG pH 7.30 L (7.35-7.45) ABG pCO2 47 H (35-45) mmHg ABG pO2 138 H (83-108) mmHg ABG Total CO2 (19-24) mmol/L ABG O2 Saturation 99.2 H (94-97) % ABG Hematocrit (34.0-46.0) % ABG Glucose (75-99) mg/dL Hemoglobin (13.0-17.5) gm/dL Chloride (98-107) mmol/L Creatinine (0.66-1.25) mg/dL POC Glucose (mg/dL) 103 H (75-99) mg/dL Calcium (8.4-10.2) mg/dL Total Protein (6.3-8.2) g/dL Albumin (3.5-5.0) g/dL Arterial Blood Glucose (75-99) mg/dL Crossmatch 05/20/18 05/20/18 05/20/18 Range/Units 17:00 18:10 18:55 RBC 3.65 L (4.30-5.90) m/uL Hgb 11.0 L (13.0-17.5) gm/dL Hct 33.8 L (39.0-53.0) % Neutrophils # 8.4 H (1.3-7.7) k/uL Lymphocytes # 0.7 L (1.0-4.8) k/uL INR (<1.2) APTT (22.0-30.0) sec ABG pH (7.35-7.45) ABG pCO2 (35-45) mmHg ABG pO2 (83-108) mmHg ABG Total CO2 (19-24) mmol/L ABG O2 Saturation (94-97) % ABG Hematocrit (34.0-46.0) % ABG Glucose (75-99) mg/dL Hemoglobin (13.0-17.5) gm/dL Chloride (98-107) mmol/L Creatinine (0.66-1.25) mg/dL POC Glucose (mg/dL) 106 H 101 H (75-99) mg/dL Calcium (8.4-10.2) mg/dL Total Protein (6.3-8.2) g/dL Albumin (3.5-5.0) g/dL Arterial Blood Glucose (75-99) mg/dL Crossmatch 05/20/18 05/20/18 05/20/18 Range/Units 18:55 19:45 20:51 RBC (4.30-5.90) m/uL Hgb (13.0-17.5) gm/dL Hct (39.0-53.0) % Neutrophils # (1.3-7.7) k/uL Lymphocytes # (1.0-4.8) k/uL INR (<1.2) APTT (22.0-30.0) sec ABG pH (7.35-7.45) ABG pCO2 (35-45) mmHg ABG pO2 (83-108) mmHg ABG Total CO2 (19-24) mmol/L ABG O2 Saturation (94-97) % ABG Hematocrit (34.0-46.0) % ABG Glucose (75-99) mg/dL Hemoglobin (13.0-17.5) gm/dL Chloride (98-107) mmol/L Creatinine (0.66-1.25) mg/dL POC Glucose (mg/dL) 100 H 102 H 110 H (75-99) mg/dL Calcium (8.4-10.2) mg/dL Total Protein (6.3-8.2) g/dL Albumin (3.5-5.0) g/dL Arterial Blood Glucose (75-99) mg/dL Crossmatch Assessment and Plan Assessment: 58-year-old male with history of hypertension and coronary artery disease presented for scheduled open heart surgery for coronary artery bypass due to recent non-STEMI left heart cath showed severe triple-vessel disease. Patient is seen as requested for medical management postop. Patient doing well no immediate complications noted postoperatively. Plan: Severe coronary artery disease status post CABG. Postoperative day 0 Aspirin Plavix statin beta blockers Cardiology and cardiothoracic surgery following Pain control Postoperative anemia secondary to postoperative blood loss Currently asymptomatic Intermediate to monitor H&H Hypertension currently controlled Continue with JJ inhibitor is an beta blockers Hyperlipidemia Continue statin Smoking Patient counseled to quit smoking Alcohol dependence Low risk for alcohol withdrawal, patient claims last drink was over 10 days of BPH continue with Flomax DVT prophylaxis on heparin subcu 3 times a day Follow up labs Thank you for allowing us to participate in the care of this patient. Do not hesitate to contact us with questions. Someone can be reached from the [facility] hospitalist group at all hours of the day at [phone].
[2018-05-20 23:00] LABS: Glucose,Whole Blood 108 mg/dL (75-99)
[2018-05-20] MEDS: HEPARIN SODIUM,PORCINE 5,000 UNIT/ML 1 ML VIAL SQ SCH (23:44)
[2018-05-20 23:53] LABS: Glucose,Whole Blood 106 mg/dL (75-99)
[2018-05-21] MEDS: KETOROLAC 30 MG/ML 1 ML VIAL IVP SCH ×4 (00:37→19:07)
[2018-05-21 01:00] LABS: Glucose,Whole Blood 115 mg/dL (75-99)
[2018-05-21 03:04] LABS: Glucose,Whole Blood 110 mg/dL (75-99)
[2018-05-21 04:12] LABS: Glucose,Whole Blood 104 mg/dL (75-99)
[2018-05-21 04:32] LABS: Basophils # (A) 0.1 k/uL (0-0.2); Basophils % (A) 1 %; Eosinophils # (A) 0.1 k/uL (0-0.7); Eosinophils % (A) 2 %; HCT 35.8 % (39.0-53.0); HGB 11.8 gm/dL (13.0-17.5); Lymphocytes # (A) 1.4 k/uL (1.0-4.8); Lymphocytes % (A) 16 %; MCH 31.1 pg (25.0-35.0); MCHC 32.9 g/dL (31.0-37.0); MCV 94.5 fL (80.0-100.0); Mean Platelet Volume 7.2; Monocytes # (A) 0.6 k/uL (0-1.0); Monocytes % (A) 7 %; Neutrophils # (A) 6.2 k/uL (1.3-7.7); Neutrophils % (A) 73 %; Platelet Count 192 k/uL (150-450); RBC 3.79 m/uL (4.30-5.90); RDW 13.8 % (11.5-15.5); WBC 8.6 k/uL (3.8-10.6)
[2018-05-21 04:44] LABS: Prothrombin Time 10.3 sec (9.0-12.0)
[2018-05-21 04:49] LABS: ALT 31 U/L (21-72); AST 32 U/L (17-59); Albumin 3.2 g/dL (3.5-5.0); Alkaline Phosphatase 50 U/L (38-126); Anion Gap 6 mmol/L; Blood Urea Nitrogen 14 mg/dL (9-20); Calcium 8.3 mg/dL (8.4-10.2); Carbon Dioxide 21 mmol/L (22-30); Chloride 108 mmol/L (98-107); Glucose 97 mg/dL (74-99); Magnesium 2.1 mg/dL (1.6-2.3); Potassium 4.6 mmol/L (3.5-5.1); Sodium 135 mmol/L (137-145); Total Bilirubin 0.6 mg/dL (0.2-1.3); Total Protein 5.3 g/dL (6.3-8.2)
[2018-05-21] MEDS: ALBUMIN HUMAN 5% 250 ML in EMPTY BAG 1 BAG IVPB PRN ×3 (06:11→08:04)
[2018-05-21 06:19] LABS: Glucose,Whole Blood 117 mg/dL (75-99)
[2018-05-21] MEDS: ACETAMINOPHEN IV (For NPO) 1,000 MG in EMPTY BAG 1 BAG IVPB SCH ×3 (06:23→17:59)
[2018-05-21 07:01] LABS: Glucose,Whole Blood 115 mg/dL (75-99)
[2018-05-21] MEDS: IPRATROPIUM-ALBUTEROL 3 ML NEB INHALATION SCH ×4 (07:35→19:51)
[2018-05-21] MEDS: HEPARIN SODIUM,PORCINE 5,000 UNIT/ML 1 ML VIAL SQ SCH ×2 (07:38→16:05)
[2018-05-21] MEDS: ceFAZolin IN SWFI 2 GM/20 ML SYRINGE IVP SCH (07:38)
[2018-05-21] MEDS: LACTATED RINGERS 1,000 ML IV SCH (07:38)
[2018-05-21 07:54] LABS: Glucose,Whole Blood 137 mg/dL (75-99)
[2018-05-21] MEDS: MUPIROCIN 2% OINT 22 GM TUBE NASAL SCH ×2 (08:02→20:31)
[2018-05-21] MEDS: TAMSULOSIN 0.4 MG CAP.ER.24H PO SCH (08:03)
[2018-05-21] MEDS: ATORVASTATIN 40 MG TAB PO SCH (08:03)
[2018-05-21] MEDS: ASPIRIN 325 MG TAB PO SCH (08:03)
[2018-05-21] MEDS ORDERED: METOPROLOL TARTRATE 12.5 MG TAB PO STA (08:49)
--- NOTE | 2018-05-21 08:49 | XR ---
EXAMINATION TYPE: XR chest 1V portable DATE OF EXAM: 05/21/2018 COMPARISON: 05/20/2018 HISTORY: Postop TECHNIQUE: Single frontal view of the chest is obtained. FINDINGS: Calcified granuloma right upper lobe. There is a area of consolidation left upper lobe per ihilar region which is improved. Suggestion of coronary stenting. ET and NG tube have been removed, S wan-Jennifer catheter, mediastinal drain and chest tube noted. ET tube approximately 5 cm above mil. T ip of [place]-Jennifer catheter overlies proximal pulmonary outflow tract. IMPRESSION: 1. Postsurgical changes with persistent areas of consolidation and pleural effusion.
[2018-05-21 08:55] LABS: Glucose,Whole Blood 152 mg/dL (75-99)
[2018-05-21] MEDS ORDERED: PANTOPRAZOLE 40 MG/10 ML VIAL IVP SCH (09:00)
[2018-05-21] MEDS ORDERED: METOPROLOL TARTRATE 12.5 MG TAB PO SCH ×2 (09:00→21:00)
--- NOTE | 2018-05-21 09:31 | P.PN ---
Subjective Progress Note Date: 05/21/18 Principal diagnosis: Status post open heart Progress note dated 05/21/2018 57-year-old male status post three-vessel bypass grafting. He is postop day # 1. He has a history of CAD with previous myocardial infarction with stent placement, hypertension, hyperlipidemia, tobacco dependence, remote history of pneumonia, history of vein stripping and daily alcohol use. On presentation, he presented with chest pain and ruled in for a non-ST segment elevation myocardial infarction. The patient was extubated yesterday within the 6 hour time limited. He is doing well. He is on oxygen at 2 L by nasal cannula. He is getting a saline IV at 30 mL an hour. He is doing about 1500 mL on his incentive spirometer. Actually doing very well today. Chest x-ray shows smaller lung volumes. There may be some basilar atelectasis and small effusions. Minimal cephalization of the upper lobe vessels. Objective - Vital Signs Vital signs: Vital Signs Temp 99.5 F 05/21/18 08:00 Pulse 60 05/21/18 08:00 Resp 12 05/21/18 08:00 BP 91/59 05/21/18 08:00 Pulse Ox 95 05/21/18 08:00 Intake & Output 05/20/18 05/21/18 05/21/18 18:59 06:59 18:59 Intake Total 360.810 4019 588 Output Total 2245 1075 105 Balance -1948.137 734 483 Weight 87.5 kg 87.5 kg Intake: IV 186 1209 588 ACETAMINOPHEN IV (For NPO 200 ) 1,000 mg In Empty Bag 1 bag @ 400 mls/hr IVPB Q6HR SONIA Rx#:[id number] Albumin Human 5% 250 ml 250 500 In Empty Bag 1 bag @ 250 mls/hr IVPB Q1HR PRN Rx#: [id number] CO/CI 90 90 20 Lactated Ringers 1,000 ml 550 50 @ 50 mls/hr IV .Q20H SONIA Rx#:[id number] Pressure Bag 63 99 18 ceFAZolin 2,000 mg In 20 Sodium Chloride 0.9% 30 ml @ Per Protocol IVPB ONCE ONE Rx#:[id number] Intake, IV Titration 110.863 Amount Clevidipine Butyrate 25 1.433 mg In Empty Bag 1 bag @ 1 MG/HR 2 mls/hr IV .Q24H SONIA Rx#:[id number] Lactated Ringers 1,000 ml 100 @ 50 mls/hr IV .Q20H SONIA Rx#:[id number] Propofol 1,000 mg In 9.43 Empty Bag 1 bag @ Titrate IV .Q0M SONIA Rx#: [id number] Oral 600 Output: Chest Tube Drainage 380 580 80 Left Pleural/Mediastinal 380 580 80 Urine 665 495 25 Estimated Blood Loss 1200 Other: Voiding Method Indwelling Catheter Indwelling Catheter Indwelling Catheter ABP, PAP, CO, CI - Last Documented Arterial Blood Pressure 106/52 Pulmonary Artery Pressure 26/12 Cardiac Output 7.3 Cardiac Index 3.7 - Exam No acute distress, oriented 3. Nasal O2 in place. HEENT examination is grossly unremarkable. Mucous membranes are moist. No oral lesions. Neck supple. Full range of motion. No adenopathy thyromegaly or neck vein distention. Cardiovascular examination reveals regular rhythm rate. S1-S2 normal. No S3 or S4. No discernible murmur noted. Lungs reveal occasional coarse rhonchi. Breath sounds equal bilaterally. A few scattered crackles. No wheezes noted. Abdomen soft bowel sounds are heard. No masses or tenderness. Extremities are intact. No cyanosis clubbing or edema. Skin is without rash or lesion. Neurologic examination is brief but nonfocal. - Labs CBC & Chem 7: 05/21/18 04:15 05/21/18 04:15 Labs: Abnormal Lab Results - Last 24 Hours (Table) 05/12/18 05/20/18 05/20/18 Range/Units 14:18 08:45 10:12 RBC (4.30-5.90) m/uL Hgb (13.0-17.5) gm/dL Hct (39.0-53.0) % Neutrophils # (1.3-7.7) k/uL Lymphocytes # (1.0-4.8) k/uL INR (<1.2) APTT (22.0-30.0) sec ABG pH 7.32 L (7.35-7.45) ABG pCO2 (35-45) mmHg ABG pO2 >420 H 289 H (83-108) mmHg ABG Total CO2 25 H (19-24) mmol/L ABG O2 Saturation 100.0 H 99.8 H (94-97) % ABG Hematocrit (34.0-46.0) % ABG Glucose 112 H (75-99) mg/dL Hemoglobin 12.4 L 11.2 L (13.0-17.5) gm/dL Sodium (137-145) mmol/L Chloride (98-107) mmol/L Carbon Dioxide (22-30) mmol/L Creatinine (0.66-1.25) mg/dL POC Glucose (mg/dL) (75-99) mg/dL Calcium (8.4-10.2) mg/dL Total Protein (6.3-8.2) g/dL Albumin (3.5-5.0) g/dL Arterial Blood Glucose 112 H (75-99) mg/dL Crossmatch See Detail 05/20/18 05/20/18 05/20/18 Range/Units 10:56 11:34 12:50 RBC 3.31 L (4.30-5.90) m/uL Hgb 10.6 L (13.0-17.5) gm/dL Hct 30.9 L (39.0-53.0) % Neutrophils # (1.3-7.7) k/uL Lymphocytes # (1.0-4.8) k/uL INR (<1.2) APTT (22.0-30.0) sec ABG pH 7.33 L 7.31 L (7.35-7.45) ABG pCO2 (35-45) mmHg ABG pO2 292 H 241 H (83-108) mmHg ABG Total CO2 25 H (19-24) mmol/L ABG O2 Saturation 99.8 H 99.5 H (94-97) % ABG Hematocrit 33 L 32 L (34.0-46.0) % ABG Glucose 106 H (75-99) mg/dL Hemoglobin 10.7 L 10.4 L (13.0-17.5) gm/dL Sodium (137-145) mmol/L Chloride (98-107) mmol/L Carbon Dioxide (22-30) mmol/L Creatinine (0.66-1.25) mg/dL POC Glucose (mg/dL) (75-99) mg/dL Calcium (8.4-10.2) mg/dL Total Protein (6.3-8.2) g/dL Albumin (3.5-5.0) g/dL Arterial Blood Glucose 106 H (75-99) mg/dL Crossmatch 05/20/18 05/20/18 05/20/18 Range/Units 12:50 12:50 13:12 RBC (4.30-5.90) m/uL Hgb (13.0-17.5) gm/dL Hct (39.0-53.0) % Neutrophils # (1.3-7.7) k/uL Lymphocytes # (1.0-4.8) k/uL INR 1.2 H (<1.2) APTT 31.8 H (22.0-30.0) sec ABG pH 7.31 L (7.35-7.45) ABG pCO2 (35-45) mmHg ABG pO2 >400 H (83-108) mmHg ABG Total CO2 (19-24) mmol/L ABG O2 Saturation 100.0 H (94-97) % ABG Hematocrit (34.0-46.0) % ABG Glucose (75-99) mg/dL Hemoglobin (13.0-17.5) gm/dL Sodium (137-145) mmol/L Chloride 113 H (98-107) mmol/L Carbon Dioxide (22-30) mmol/L Creatinine 0.60 L (0.66-1.25) mg/dL POC Glucose (mg/dL) (75-99) mg/dL Calcium 7.6 L (8.4-10.2) mg/dL Total Protein 4.7 L (6.3-8.2) g/dL Albumin 2.9 L (3.5-5.0) g/dL Arterial Blood Glucose (75-99) mg/dL Crossmatch 05/20/18 05/20/18 05/20/18 Range/Units 14:51 15:50 15:54 RBC 3.56 L (4.30-5.90) m/uL Hgb 11.2 L (13.0-17.5) gm/dL Hct 33.0 L (39.0-53.0) % Neutrophils # (1.3-7.7) k/uL Lymphocytes # (1.0-4.8) k/uL INR (<1.2) APTT (22.0-30.0) sec ABG pH 7.30 L (7.35-7.45) ABG pCO2 47 H (35-45) mmHg ABG pO2 138 H (83-108) mmHg ABG Total CO2 (19-24) mmol/L ABG O2 Saturation 99.2 H (94-97) % ABG Hematocrit (34.0-46.0) % ABG Glucose (75-99) mg/dL Hemoglobin (13.0-17.5) gm/dL Sodium (137-145) mmol/L Chloride (98-107) mmol/L Carbon Dioxide (22-30) mmol/L Creatinine (0.66-1.25) mg/dL POC Glucose (mg/dL) 103 H (75-99) mg/dL Calcium (8.4-10.2) mg/dL Total Protein (6.3-8.2) g/dL Albumin (3.5-5.0) g/dL Arterial Blood Glucose (75-99) mg/dL Crossmatch 05/20/18 05/20/18 05/20/18 Range/Units 17:00 18:10 18:55 RBC 3.65 L (4.30-5.90) m/uL Hgb 11.0 L (13.0-17.5) gm/dL Hct 33.8 L (39.0-53.0) % Neutrophils # 8.4 H (1.3-7.7) k/uL Lymphocytes # 0.7 L (1.0-4.8) k/uL INR (<1.2) APTT (22.0-30.0) sec ABG pH (7.35-7.45) ABG pCO2 (35-45) mmHg ABG pO2 (83-108) mmHg ABG Total CO2 (19-24) mmol/L ABG O2 Saturation (94-97) % ABG Hematocrit (34.0-46.0) % ABG Glucose (75-99) mg/dL Hemoglobin (13.0-17.5) gm/dL Sodium (137-145) mmol/L Chloride (98-107) mmol/L Carbon Dioxide (22-30) mmol/L Creatinine (0.66-1.25) mg/dL POC Glucose (mg/dL) 106 H 101 H (75-99) mg/dL Calcium (8.4-10.2) mg/dL Total Protein (6.3-8.2) g/dL Albumin (3.5-5.0) g/dL Arterial Blood Glucose (75-99) mg/dL Crossmatch 05/20/18 05/20/18 05/20/18 Range/Units 18:55 19:45 20:51 RBC (4.30-5.90) m/uL Hgb (13.0-17.5) gm/dL Hct (39.0-53.0) % Neutrophils # (1.3-7.7) k/uL Lymphocytes # (1.0-4.8) k/uL INR (<1.2) APTT (22.0-30.0) sec ABG pH (7.35-7.45) ABG pCO2 (35-45) mmHg ABG pO2 (83-108) mmHg ABG Total CO2 (19-24) mmol/L ABG O2 Saturation (94-97) % ABG Hematocrit (34.0-46.0) % ABG Glucose (75-99) mg/dL Hemoglobin (13.0-17.5) gm/dL Sodium (137-145) mmol/L Chloride (98-107) mmol/L Carbon Dioxide (22-30) mmol/L Creatinine (0.66-1.25) mg/dL POC Glucose (mg/dL) 100 H 102 H 110 H (75-99) mg/dL Calcium (8.4-10.2) mg/dL Total Protein (6.3-8.2) g/dL Albumin (3.5-5.0) g/dL Arterial Blood Glucose (75-99) mg/dL Crossmatch 05/20/18 05/20/18 05/20/18 Range/Units 21:50 22:59 23:51 RBC (4.30-5.90) m/uL Hgb (13.0-17.5) gm/dL Hct (39.0-53.0) % Neutrophils # (1.3-7.7) k/uL Lymphocytes # (1.0-4.8) k/uL INR (<1.2) APTT (22.0-30.0) sec ABG pH (7.35-7.45) ABG pCO2 (35-45) mmHg ABG pO2 (83-108) mmHg ABG Total CO2 (19-24) mmol/L ABG O2 Saturation (94-97) % ABG Hematocrit (34.0-46.0) % ABG Glucose (75-99) mg/dL Hemoglobin (13.0-17.5) gm/dL Sodium (137-145) mmol/L Chloride (98-107) mmol/L Carbon Dioxide (22-30) mmol/L Creatinine (0.66-1.25) mg/dL POC Glucose (mg/dL) 107 H 108 H 106 H (75-99) mg/dL Calcium (8.4-10.2) mg/dL Total Protein (6.3-8.2) g/dL Albumin (3.5-5.0) g/dL Arterial Blood Glucose (75-99) mg/dL Crossmatch 05/21/18 05/21/18 05/21/18 Range/Units 00:58 03:01 04:09 RBC (4.30-5.90) m/uL Hgb (13.0-17.5) gm/dL Hct (39.0-53.0) % Neutrophils # (1.3-7.7) k/uL Lymphocytes # (1.0-4.8) k/uL INR (<1.2) APTT (22.0-30.0) sec ABG pH (7.35-7.45) ABG pCO2 (35-45) mmHg ABG pO2 (83-108) mmHg ABG Total CO2 (19-24) mmol/L ABG O2 Saturation (94-97) % ABG Hematocrit (34.0-46.0) % ABG Glucose (75-99) mg/dL Hemoglobin (13.0-17.5) gm/dL Sodium (137-145) mmol/L Chloride (98-107) mmol/L Carbon Dioxide (22-30) mmol/L Creatinine (0.66-1.25) mg/dL POC Glucose (mg/dL) 115 H 110 H 104 H (75-99) mg/dL Calcium (8.4-10.2) mg/dL Total Protein (6.3-8.2) g/dL Albumin (3.5-5.0) g/dL Arterial Blood Glucose (75-99) mg/dL Crossmatch 05/21/18 05/21/1805/21/18 Range/Units 04:15 04:15 06:17 RBC 3.79 L (4.30-5.90) m/uL Hgb 11.8 L (13.0-17.5) gm/dL Hct 35.8 L (39.0-53.0) % Neutrophils # (1.3-7.7) k/uL Lymphocytes # (1.0-4.8) k/uL INR (<1.2) APTT (22.0-30.0) sec ABG pH (7.35-7.45) ABG pCO2 (35-45) mmHg ABG pO2 (83-108) mmHg ABG Total CO2 (19-24) mmol/L ABG O2 Saturation (94-97) % ABG Hematocrit (34.0-46.0) % ABG Glucose (75-99) mg/dL Hemoglobin (13.0-17.5) gm/dL Sodium 135 L (137-145) mmol/L Chloride 108 H (98-107) mmol/L Carbon Dioxide 21 L (22-30) mmol/L Creatinine (0.66-1.25) mg/dL POC Glucose (mg/dL) 117 H (75-99) mg/dL Calcium 8.3 L (8.4-10.2) mg/dL Total Protein 5.3 L (6.3-8.2) g/dL Albumin 3.2 L (3.5-5.0) g/dL Arterial Blood Glucose (75-99) mg/dL Crossmatch 05/21/18 05/21/18 05/21/18 Range/Units 06:59 07:52 08:54 RBC (4.30-5.90) m/uL Hgb (13.0-17.5) gm/dL Hct (39.0-53.0) % Neutrophils # (1.3-7.7) k/uL Lymphocytes # (1.0-4.8) k/uL INR (<1.2) APTT (22.0-30.0) sec ABG pH (7.35-7.45) ABG pCO2 (35-45) mmHg ABG pO2 (83-108) mmHg ABG Total CO2 (19-24) mmol/L ABG O2 Saturation (94-97) % ABG Hematocrit (34.0-46.0) % ABG Glucose (75-99) mg/dL Hemoglobin (13.0-17.5) gm/dL Sodium (137-145) mmol/L Chloride (98-107) mmol/L Carbon Dioxide (22-30) mmol/L Creatinine (0.66-1.25) mg/dL POC Glucose (mg/dL) 115 H 137 H 152 H (75-99) mg/dL Calcium (8.4-10.2) mg/dL Total Protein (6.3-8.2) g/dL Albumin (3.5-5.0) g/dL Arterial Blood Glucose (75-99) mg/dL Crossmatch Assessment and Plan Assessment: Assessment Postop day #1, status post three-vessel bypass grafting, done off pump. Postoperative respiratory failure, expected History of CAD with previous myocardial infarction Previous stent placement History of hypertension History of hyperlipidemia History of chronic tobacco dependence Remote history of pneumonia Previous history of vein stripping History of daily alcohol use Plan: Plan dated 05/20/2018 The patient's blood gases seem reasonable. He is awake and alert. Weaning parameters are excellent. He's mildly acidotic. He does arouse appropriately and has excellent tidal volumes and vital capacities. I've asked respiratory therapist to check a cuff leak. If positive, he can be extubated. He is currently not on any sedation. Hemodynamically he seems stable. Plan dated 05/21/2018 The patient will continue using his incentive spirometer. We'll encourage it every hour. In addition, we'll recommend deep breathing coughing and clearing of secretions. The patient will stay on the [facility] 4 times a day and when necessary. We'll continue to watch his chest x-ray very carefully. The patient seemed be doing relatively well. Hopefully today he'll get some of his hardware out. Additional recommendations and suggestions are forthcoming. Labs x-rays a medications are reviewed. White count is 8.6, hemoglobin 11.8, 35.8 is a hematocrit. PT INR are normal. Sodium 135 potassium 4.6 chloride is 108 CO2 21 BUN and creatinine 14 and 0.7. Critical-care time 34 minutes Time with Patient: Greater than 30
--- NOTE | 2018-05-21 09:34 | PN ---
PROGRESS NOTE Mr. Dean is a 58-year-old male who has underwent coronary artery bypass grafting. He is awake, alert, denying any chest pain. He has some chest wall tenderness, but no other symptoms. He denies any dizziness, palpitation. He denies any nausea. He continues to be in sinus mechanism. He continues to be at this time on aspirin once a day, Lipitor 40 mg daily, Plavix 75 mg daily, metoprolol tartrate 12.5 mg twice a day. PHYSICAL EXAMINATION: Blood pressure 106/50 with a heart rate in 70s, lungs with few crackles at the bases. HEART: Regular rate and rhythm, S1, S2. No S3, plus rub. ABDOMEN: Soft, nontender. EXTREMITIES: With trace to 1+ edema. LAB DATA: Revealed a BUN and creatinine of 14 and 0.7, potassium of 4.6, hemoglobin of 11.8. IMPRESSION: 1. Status post coronary artery bypass grafting, stable, maintaining sinus mechanism. 2. Hyperlipidemia. 3. History of hypertension. RECOMMENDATION: From the cardiac standpoint, stable. He is back on his beta sagrario and statin. Will adjust the dose depending on his blood pressure. Increase his level of activity and depending on his progress, further recommendation will be made. MMODL / IJN: [id number] /
--- NOTE | 2018-05-21 09:58 | P.PN ---
Subjective Progress Note Date: 05/21/18 Principal diagnosis: Coronary artery disease. Previous medical history of myocardial infarction with stent placement, hypertension, hyperlipidemia, current tobacco dependence, mild COPD with preoperative FEV1 69% of predicted, remote history of pneumonia, history of vein stripping, daily EtOH use. POD #1 off-pump coronary artery bypass grafting 3 with CORTES to the LAD and saphenous vein grafts to the posterior descending coronary artery and diagonal coronary artery with endovascular harvest of the left greater saphenous vein. Intraoperative transesophageal echocardiogram completed by anesthesiology. The patient is currently sitting up in the chair in no acute distress. Denies pain, shortness of breath. No new concerns. He was successfully extubated yesterday 15:45. Objective - Vital Signs Vital signs: Vital Signs Temp 99.5 F 05/21/18 08:00 Pulse 60 05/21/18 08:00 Resp 12 05/21/18 08:00 BP 91/59 05/21/18 08:00 Pulse Ox 95 05/21/18 08:00 Intake & Output 05/20/18 05/21/18 05/21/18 18:59 06:59 18:59 Intake Total 201.111 0342 588 Output Total 2245 1075 105 Balance -1948.137 734 483 Weight 87.5 kg 87.5 kg Intake: IV 186 1209 588 ACETAMINOPHEN IV (For NPO 200 ) 1,000 mg In Empty Bag 1 bag @ 400 mls/hr IVPB Q6HR [facility] Rx#:[id number] Albumin Human 5% 250 ml 250 500 In Empty Bag 1 bag @ 250 mls/hr IVPB Q1HR PRN Rx#: [id number] CO/CI 90 90 20 Lactated Ringers 1,000 ml 550 50 @ 50 mls/hr IV .Q20H [facility] Rx#:[id number] Pressure Bag 63 99 18 ceFAZolin 2,000 mg In 20 Sodium Chloride 0.9% 30 ml @ Per Protocol IVPB ONCE ONE Rx#:[id number] Intake, IV Titration 110.863 Amount Clevidipine Butyrate 25 1.433 mg In Empty Bag 1 bag @ 1 MG/HR 2 mls/hr IV .Q24H [facility] Rx#:[id number] Lactated Ringers 1,000 ml 100 @ 50 mls/hr IV .Q20H [facility] Rx#:[id number] Propofol 1,000 mg In 9.43 Empty Bag 1 bag @ Titrate IV .Q0M [facility] Rx#: [id number] Oral 600 Output: Chest Tube Drainage 380 580 80 Left Pleural/Mediastinal 380 580 80 Urine 665 495 25 Estimated Blood Loss 1200 Other: Voiding Method Indwelling Catheter Indwelling Catheter Indwelling Catheter ABP, PAP, CO, CI - Last Documented Arterial Blood Pressure 106/52 Pulmonary Artery Pressure 26/12 Cardiac Output 7.3 Cardiac Index 3.7 - Constitutional General appearance: Present: cooperative, no acute distress - Respiratory Details: Lungs sounds clear bilaterally. Respirations even, nonlabored. Currently on 2 L nasal cannula with oxygen saturation 90%. Strong effective cough. Mediastinal/left pleural chest tube to continuous wall suction, 430 mL serosanguineous drainage overnight, 1050 mL since surgery. No air leak present. - Cardiovascular Details: S1, S2 present. Regular rate and rhythm, sinus rhythm on telemetry. Sternum stable. Palpable peripheral pulses bilaterally. No edema present. No calf pain or tenderness noted. Right internal jugular [place], right radial arterial line present. Last CO/CI 5.5/2.8 on no inotropes. Heart hugger in place with patient demonstrating appropriate use. Antiembolism stockings, SCDs present. - Gastrointestinal Gastrointestinal Comment(s): Abdomen soft, nontender, nondistended. Active bowel sounds 4 quadrants. Tolerating diet. Negative flatus. - Genitourinary Genitourinary Comment(s): Du present draining clear, yellow urine. Output 30-75 mL/h overnight. - Integumentary Integumentary Comment(s): Skin is warm and dry with evidence of good perfusion. Anterior chest incision well approximated, dry intact dressing. Left lower extremity EVH site well approximated. - Neurologic Neurologic: Present: CNII-XII intact - Musculoskeletal Musculoskeletal: Present: gait normal, strength equal bilaterally - Psychiatric Psychiatric: Present: A&O x's 3, appropriate affect, intact judgment & insight - Allied health notes Allied health notes reviewed: nursing - Labs CBC & Chem 7: 05/21/18 04:15 05/21/18 04:15 Labs: Abnormal Lab Results - Last 24 Hours (Table) 05/12/18 05/20/18 05/20/18 Range/Units 14:18 08:45 10:12 RBC (4.30-5.90) m/uL Hgb (13.0-17.5) gm/dL Hct (39.0-53.0) % Neutrophils # (1.3-7.7) k/uL Lymphocytes # (1.0-4.8) k/uL INR (<1.2) APTT (22.0-30.0) sec ABG pH 7.32 L (7.35-7.45) ABG pCO2 (35-45) mmHg ABG pO2 >420 H 289 H (83-108) mmHg ABG Total CO2 25 H (19-24) mmol/L ABG O2 Saturation 100.0 H 99.8 H (94-97) % ABG Hematocrit (34.0-46.0) % ABG Glucose 112 H (75-99) mg/dL Hemoglobin 12.4 L 11.2 L (13.0-17.5) gm/dL Sodium (137-145) mmol/L Chloride (98-107) mmol/L Carbon Dioxide (22-30) mmol/L Creatinine (0.66-1.25) mg/dL POC Glucose (mg/dL) (75-99) mg/dL Calcium (8.4-10.2) mg/dL Total Protein (6.3-8.2) g/dL Albumin (3.5-5.0) g/dL Arterial Blood Glucose 112 H (75-99) mg/dL Crossmatch See Detail 05/20/18 05/20/18 05/20/18 Range/Units 10:56 11:34 12:50 RBC 3.31 L (4.30-5.90) m/uL Hgb 10.6 L (13.0-17.5) gm/dL Hct 30.9 L (39.0-53.0) % Neutrophils # (1.3-7.7) k/uL Lymphocytes # (1.0-4.8) k/uL INR (<1.2) APTT (22.0-30.0) sec ABG pH 7.33 L 7.31 L (7.35-7.45) ABG pCO2 (35-45) mmHg ABG pO2 292 H 241 H (83-108) mmHg ABG Total CO2 25 H (19-24) mmol/L ABG O2 Saturation 99.8 H 99.5 H (94-97) % ABG Hematocrit 33 L 32 L (34.0-46.0) % ABG Glucose 106 H (75-99) mg/dL Hemoglobin 10.7 L 10.4 L (13.0-17.5) gm/dL Sodium (137-145) mmol/L Chloride (98-107) mmol/L Carbon Dioxide (22-30) mmol/L Creatinine (0.66-1.25) mg/dL POC Glucose (mg/dL) (75-99) mg/dL Calcium (8.4-10.2) mg/dL Total Protein (6.3-8.2) g/dL Albumin (3.5-5.0) g/dL Arterial Blood Glucose 106 H (75-99) mg/dL Crossmatch 05/20/18 05/20/18 05/20/18 Range/Units 12:50 12:50 13:12 RBC (4.30-5.90) m/uL Hgb (13.0-17.5) gm/dL Hct (39.0-53.0) % Neutrophils # (1.3-7.7) k/uL Lymphocytes # (1.0-4.8) k/uL INR 1.2 H (<1.2) APTT 31.8 H (22.0-30.0) sec ABG pH 7.31 L (7.35-7.45) ABG pCO2 (35-45) mmHg ABG pO2 >400 H (83-108) mmHg ABG Total CO2 (19-24) mmol/L ABG O2 Saturation 100.0 H (94-97) % ABG Hematocrit (34.0-46.0) % ABG Glucose (75-99) mg/dL Hemoglobin (13.0-17.5) gm/dL Sodium (137-145) mmol/L Chloride 113 H (98-107) mmol/L Carbon Dioxide (22-30) mmol/L Creatinine 0.60 L (0.66-1.25) mg/dL POC Glucose (mg/dL) (75-99) mg/dL Calcium 7.6 L (8.4-10.2) mg/dL Total Protein 4.7 L (6.3-8.2) g/dL Albumin 2.9 L (3.5-5.0) g/dL Arterial Blood Glucose (75-99) mg/dL Crossmatch 05/20/18 05/20/18 05/20/18 Range/Units 14:51 15:50 15:54 RBC 3.56 L (4.30-5.90) m/uL Hgb 11.2 L (13.0-17.5) gm/dL Hct 33.0 L (39.0-53.0) % Neutrophils # (1.3-7.7) k/uL Lymphocytes # (1.0-4.8) k/uL INR (<1.2) APTT (22.0-30.0) sec ABG pH 7.30 L (7.35-7.45) ABG pCO2 47 H (35-45) mmHg ABG pO2 138 H (83-108) mmHg ABG Total CO2 (19-24) mmol/L ABG O2 Saturation 99.2 H (94-97) % ABG Hematocrit (34.0-46.0) % ABG Glucose (75-99) mg/dL Hemoglobin (13.0-17.5) gm/dL Sodium (137-145) mmol/L Chloride (98-107) mmol/L Carbon Dioxide (22-30) mmol/L Creatinine (0.66-1.25) mg/dL POC Glucose (mg/dL) 103 H (75-99) mg/dL Calcium (8.4-10.2) mg/dL Total Protein (6.3-8.2) g/dL Albumin (3.5-5.0) g/dL Arterial Blood Glucose (75-99) mg/dL Crossmatch 05/20/18 05/20/18 05/20/18 Range/Units 17:00 18:10 18:55 RBC 3.65 L (4.30-5.90) m/uL Hgb 11.0 L (13.0-17.5) gm/dL Hct 33.8 L (39.0-53.0) % Neutrophils # 8.4 H (1.3-7.7) k/uL Lymphocytes # 0.7 L (1.0-4.8) k/uL INR (<1.2) APTT (22.0-30.0) sec ABG pH (7.35-7.45) ABG pCO2 (35-45) mmHg ABG pO2 (83-108) mmHg ABG Total CO2 (19-24) mmol/L ABG O2 Saturation (94-97) % ABG Hematocrit (34.0-46.0) % ABG Glucose (75-99) mg/dL Hemoglobin (13.0-17.5) gm/dL Sodium (137-145) mmol/L Chloride (98-107) mmol/L Carbon Dioxide (22-30) mmol/L Creatinine (0.66-1.25) mg/dL POC Glucose (mg/dL) 106 H 101 H (75-99) mg/dL Calcium (8.4-10.2) mg/dL Total Protein (6.3-8.2) g/dL Albumin (3.5-5.0) g/dL Arterial Blood Glucose (75-99) mg/dL Crossmatch 05/20/18 05/20/18 05/20/18 Range/Units 18:55 19:45 20:51 RBC (4.30-5.90) m/uL Hgb (13.0-17.5) gm/dL Hct (39.0-53.0) % Neutrophils # (1.3-7.7) k/uL Lymphocytes # (1.0-4.8) k/uL INR (<1.2) APTT (22.0-30.0) sec ABG pH (7.35-7.45) ABG pCO2 (35-45) mmHg ABG pO2 (83-108) mmHg ABG Total CO2 (19-24) mmol/L ABG O2 Saturation (94-97) % ABG Hematocrit (34.0-46.0) % ABG Glucose (75-99) mg/dL Hemoglobin (13.0-17.5) gm/dL Sodium (137-145) mmol/L Chloride (98-107) mmol/L Carbon Dioxide (22-30) mmol/L Creatinine (0.66-1.25) mg/dL POC Glucose (mg/dL) 100 H 102 H 110 H (75-99) mg/dL Calcium (8.4-10.2) mg/dL Total Protein (6.3-8.2) g/dL Albumin (3.5-5.0) g/dL Arterial Blood Glucose (75-99) mg/dL Crossmatch 05/20/18 05/20/18 05/20/18 Range/Units 21:50 22:59 23:51 RBC (4.30-5.90) m/uL Hgb (13.0-17.5) gm/dL Hct (39.0-53.0) % Neutrophils # (1.3-7.7) k/uL Lymphocytes # (1.0-4.8) k/uL INR (<1.2) APTT (22.0-30.0) sec ABG pH (7.35-7.45) ABG pCO2 (35-45) mmHg ABG pO2 (83-108) mmHg ABG Total CO2 (19-24) mmol/L ABG O2 Saturation (94-97) % ABG Hematocrit (34.0-46.0) % ABG Glucose (75-99) mg/dL Hemoglobin (13.0-17.5) gm/dL Sodium (137-145) mmol/L Chloride (98-107) mmol/L Carbon Dioxide (22-30) mmol/L Creatinine (0.66-1.25) mg/dL POC Glucose (mg/dL) 107 H 108 H 106 H (75-99) mg/dL Calcium (8.4-10.2) mg/dL Total Protein (6.3-8.2) g/dL Albumin (3.5-5.0) g/dL Arterial Blood Glucose (75-99) mg/dL Crossmatch 05/21/18 05/21/18 05/21/18 Range/Units 00:58 03:01 04:09 RBC (4.30-5.90) m/uL Hgb (13.0-17.5) gm/dL Hct (39.0-53.0) % Neutrophils # (1.3-7.7) k/uL Lymphocytes # (1.0-4.8) k/uL INR (<1.2) APTT (22.0-30.0) sec ABG pH (7.35-7.45) ABG pCO2 (35-45) mmHg ABG pO2 (83-108) mmHg ABG Total CO2 (19-24) mmol/L ABG O2 Saturation (94-97) % ABG Hematocrit (34.0-46.0) % ABG Glucose (75-99) mg/dL Hemoglobin (13.0-17.5) gm/dL Sodium (137-145) mmol/L Chloride (98-107) mmol/L Carbon Dioxide (22-30) mmol/L Creatinine (0.66-1.25) mg/dL POC Glucose (mg/dL) 115 H 110 H 104 H (75-99) mg/dL Calcium (8.4-10.2) mg/dL Total Protein (6.3-8.2) g/dL Albumin (3.5-5.0) g/dL Arterial Blood Glucose (75-99) mg/dL Crossmatch 05/21/18 05/21/18 05/21/18 Range/Units 04:15 04:15 06:17 RBC 3.79 L (4.30-5.90) m/uL Hgb 11.8 L (13.0-17.5) gm/dL Hct 35.8 L (39.0-53.0) % Neutrophils # (1.3-7.7) k/uL Lymphocytes # (1.0-4.8) k/uL INR (<1.2) APTT (22.0-30.0) sec ABG pH (7.35-7.45) ABG pCO2 (35-45) mmHg ABG pO2 (83-108) mmHg ABG Total CO2 (19-24) mmol/L ABG O2 Saturation (94-97) % ABG Hematocrit (34.0-46.0) % ABG Glucose (75-99) mg/dL Hemoglobin (13.0-17.5) gm/dL Sodium 135 L (137-145) mmol/L Chloride 108 H (98-107) mmol/L Carbon Dioxide 21 L (22-30) mmol/L Creatinine (0.66-1.25) mg/dL POC Glucose (mg/dL) 117 H (75-99) mg/dL Calcium 8.3 L (8.4-10.2) mg/dL Total Protein 5.3 L (6.3-8.2) g/dL Albumin 3.2 L (3.5-5.0) g/dL Arterial Blood Glucose (75-99) mg/dL Crossmatch 05/21/18 05/21/18 05/21/18 Range/Units 06:59 07:52 08:54 RBC (4.30-5.90) m/uL Hgb (13.0-17.5) gm/dL Hct (39.0-53.0) % Neutrophils # (1.3-7.7) k/uL Lymphocytes # (1.0-4.8) k/uL INR (<1.2) APTT (22.0-30.0) sec ABG pH (7.35-7.45) ABG pCO2 (35-45) mmHg ABG pO2 (83-108) mmHg ABG Total CO2 (19-24) mmol/L ABG O2 Saturation (94-97) % ABG Hematocrit (34.0-46.0) % ABG Glucose (75-99) mg/dL Hemoglobin (13.0-17.5) gm/dL Sodium (137-145) mmol/L Chloride (98-107) mmol/L Carbon Dioxide (22-30) mmol/L Creatinine (0.66-1.25) mg/dL POC Glucose (mg/dL) 115 H 137 H 152 H (75-99) mg/dL Calcium (8.4-10.2) mg/dL Total Protein (6.3-8.2) g/dL Albumin (3.5-5.0) g/dL Arterial Blood Glucose (75-99) mg/dL Crossmatch - Imaging and Cardiology Chest x-ray: report reviewed, image reviewed Assessment and Plan (1) Daily consumption of alcohol Current Visit: Yes Status: Chronic Code(s): REY0613 - SNOMED Code(s): 181525326 (2) Essential hypertension Current Visit: Yes Status: Chronic Code(s): I10 - ESSENTIAL (PRIMARY) HYPERTENSION SNOMED Code(s): 38934986 (3) Hyperlipidemia Current Visit: Yes Status: Chronic Code(s): E78.5 - HYPERLIPIDEMIA, UNSPECIFIED SNOMED Code(s): 79071159 (4) Presence of stent in coronary artery in patient with coronary artery disease Current Visit: Yes Status: Chronic Code(s): I25.10 - ATHSCL HEART DISEASE OF [place] CORONARY ARTERY W/O ANG PCTRS; Z95.5 - PRESENCE OF CORONARY ANGIOPLASTY IMPLANT AND GRAFT SNOMED Code(s): 778963797 (5) Tobacco dependence Current Visit: Yes Status: Chronic Code(s): F17.200 - NICOTINE DEPENDENCE, UNSPECIFIED, UNCOMPLICATED SNOMED Code(s): 55491705 (6) History of myocardial infarction Current Visit: No Status: Resolved Code(s): I25.2 - OLD MYOCARDIAL INFARCTION SNOMED Code(s): 818669129 (7) CAD (coronary artery disease) Current Visit: Yes Status: Chronic Code(s): I25.10 - ATHSCL HEART DISEASE OF [place] CORONARY ARTERY W/O ANG PCTRS SNOMED Code(s): 00808403 Plan: 1. Continue aspirin, statin, Plavix, heparin, beta sagrario. Will increase beta sagrario therapy as tolerated. 2. Wean O2 as tolerated. Encourage incentive spirometry use 10 times every hour. 3. Encourage smoking cessation. 4. Increase activity, ambulate as tolerated. PT/OT/cardiac rehab following. 5. Insulin management per primary care service. 6. Pain management with ordered medication regimen. 7. Will monitor daily labs and x-rays. 8. Bronchodilators per pulmonology. 9. GI/DVT prophylaxis. 10. Will DC [place] catheter. Connect to continuous CVP monitoring. 11. More recommendations to follow. Time with Patient: Greater than 30
[2018-05-21 10:15] LABS: Glucose,Whole Blood 123 mg/dL (75-99)
[2018-05-21] MEDS: THIAMINE 100 MG TAB PO SCH (11:51)
[2018-05-21] MEDS: MULTIVITAMINS, THERA 1 EACH TAB PO SCH (11:51)
[2018-05-21] MEDS: CLOPIDOGREL 75 MG TAB PO SCH (11:51)
[2018-05-21] MEDS: FOLIC ACID 1 MG TAB PO SCH (11:51)
[2018-05-21 11:54] LABS: Glucose,Whole Blood 105 mg/dL (75-99)
[2018-05-21] MEDS ORDERED: HYDROcodone/APAP 5-325MG 1 EACH TAB PO PRN (12:18)
[2018-05-21] MEDS: PANTOPRAZOLE 40 MG TABLET PO SCH (12:40)
[2018-05-21] MEDS: INSULIN ASPART 100 UNIT/ML 1 ML 10 ML VIAL SQ SCH ×3 (12:41→20:33)
[2018-05-21 13:11] VITALS: BMI 26.9
--- NOTE | 2018-05-21 14:37 | P.PN ---
Subjective Progress Note Date: 05/21/18 Principal diagnosis: The patient is a 58-year-old male with a past medical history of coronary artery disease with multiple stents that presented and was admitted with a non-ST elevation HI and had a left heart catheterization that showed severe triple vessel disease. The patient underwent three-vessel CABG with CORTES to the LAD and saphenous vein graft to the posterior descending coronary artery. The patient is sitting up in bed, reports that he was sitting up bedside previously. Patient sister and mother are present, patient does report some fatigue and pleuritic chest discomfort which can be expected postop. Currently postop day #1, denies any shortness of breath. Patient successfully extubated yesterday, no arrhythmias and appears to be hemodynamically stable Objective - Vital Signs Vital signs: Vital Signs Temp 98.7 F 05/21/18 12:00 Pulse 76 05/21/18 13:00 Resp 16 05/21/18 13:00 BP 91/59 05/21/18 08:00 Pulse Ox 94 L 05/21/18 13:00 Intake & Output 05/20/18 05/21/18 05/21/18 18:59 06:59 18:59 Intake Total 900.298 6440 606 Output Total 2245 1075 590 Balance -1948.137 734 16 Weight 87.5 kg 87.5 kg Intake: IV 186 1209 606 ACETAMINOPHEN IV (For NPO 200 ) 1,000 mg In Empty Bag 1 bag @ 400 mls/hr IVPB Q6HR [facility] Rx#:[id number] Albumin Human 5% 250 ml 250 500 In Empty Bag 1 bag @ 250 mls/hr IVPB Q1HR PRN Rx#: [id number] CO/CI 90 90 20 Lactated Ringers 1,000 ml 550 50 @ 20 mls/hr IV .Q24H [facility] Rx#:[id number] Pressure Bag 63 99 36 ceFAZolin 2,000 mg In 20 Sodium Chloride 0.9% 30 ml @ Per Protocol IVPB ONCE ONE Rx#:[id number] Intake, IV Titration 110.863 Amount Clevidipine Butyrate 25 1.433 mg In Empty Bag 1 bag @ 1 MG/HR 2 mls/hr IV .Q24H [facility] Rx#:[id number] Lactated Ringers 1,000 ml 100 @ 20 mls/hr IV .Q24H [facility] Rx#:[id number] Propofol 1,000 mg In 9.43 Empty Bag 1 bag @ Titrate IV .Q0M [facility] Rx#: [id number] Oral 600 Output: Chest Tube Drainage 380 580 190 Left Pleural/Mediastinal 380 580 190 Urine 665 495 400 Estimated Blood Loss 1200 Other: Voiding Method Indwelling Catheter Indwelling Catheter Indwelling Catheter ABP, PAP, CO, CI - Last Documented Arterial Blood Pressure 101/59 Pulmonary Artery Pressure 39/20 Cardiac Output 7.3 Cardiac Index 3.7 - Exam Constitutional: No acute distress, conversant, pleasant Eyes: Anicteric sclerae, moist conjunctiva, no lid-lag, PERRLA ENMT: NC/AT,Oropharynx clear, no erythema, exudates Neck:Supple, FROM, no masses, or JVD, No carotid bruits; No thyromegaly Lungs: Clear to auscultation, Clear to percussion, Normal respiratory effort, no accessory muscle use, patient using incentive spirometer Cardiovascular: Normal S1 and S2 present. Regular rate and rhythm, Palpable peripheral pulses bilaterally. No edema present. No calf pain or tenderness noted. Right internal jugular [place]/Cordis, right radial arterial line present. Heart hugger in place Abdominal: Soft Nontender, nom distended, no guarding, no rebound or rigidity, Normoactive bowel sounds No hepatomegaly, No splenomegaly, No palpable mass No abdominal wall hernia noted Skin: Normal temperature, tone, texture, turgor, No induration No subcutaneous nodules, No rash, lesions, No ulcers Extremities:No digital cyanosis No clubbing, Pedal pulses intact and symmetrical Radial pulses intact and symmetrical Normal gait and station, No calf tenderness Psychiatric: Alert and oriented to person, place and time, Appropriate affect Intact judgement Neuro: Muscles Strength 5/5 in all 4 extremities, Sensation to light touch grossly present throughout, Cranial nerves II-XII grossly intact. No focal sensory deficits - Labs CBC & Chem 7: 05/21/18 04:15 05/21/18 04:15 Labs: Abnormal Lab Results - Last 24 Hours (Table) 05/12/18 05/20/18 05/20/18 Range/Units 14:18 14:51 15:50 RBC 3.56 L (4.30-5.90) m/uL Hgb 11.2 L (13.0-17.5) gm/dL Hct 33.0 L (39.0-53.0) % Neutrophils # (1.3-7.7) k/uL Lymphocytes # (1.0-4.8) k/uL ABG pH 7.30 L (7.35-7.45) ABG pCO2 47 H (35-45) mmHg ABG pO2 138 H (83-108) mmHg ABG O2 Saturation 99.2 H (94-97) % Sodium (137-145) mmol/L Chloride (98-107) mmol/L Carbon Dioxide (22-30) mmol/L POC Glucose (mg/dL) (75-99) mg/dL Calcium (8.4-10.2) mg/dL Total Protein (6.3-8.2) g/dL Albumin (3.5-5.0) g/dL Crossmatch See Detail 05/20/18 05/20/18 05/20/18 Range/Units 15:54 17:00 18:10 RBC (4.30-5.90) m/uL Hgb (13.0-17.5) gm/dL Hct (39.0-53.0) % Neutrophils # (1.3-7.7) k/uL Lymphocytes # (1.0-4.8) k/uL ABG pH (7.35-7.45) ABG pCO2 (35-45) mmHg ABG pO2 (83-108) mmHg ABG O2 Saturation (94-97) % Sodium (137-145) mmol/L Chloride (98-107) mmol/L Carbon Dioxide (22-30) mmol/L POC Glucose (mg/dL) 103 H 106 H 101 H (75-99) mg/dL Calcium (8.4-10.2) mg/dL Total Protein (6.3-8.2) g/dL Albumin (3.5-5.0) g/dL Crossmatch 05/20/18 05/20/18 05/20/18 Range/Units 18:55 18:55 19:45 RBC 3.65 L (4.30-5.90) m/uL Hgb 11.0 L (13.0-17.5) gm/dL Hct 33.8 L (39.0-53.0) % Neutrophils # 8.4 H (1.3-7.7) k/uL Lymphocytes # 0.7 L (1.0-4.8) k/uL ABG pH (7.35-7.45) ABG pCO2 (35-45) mmHg ABG pO2 (83-108) mmHg ABG O2 Saturation (94-97) % Sodium (137-145) mmol/L Chloride (98-107) mmol/L Carbon Dioxide (22-30) mmol/L POC Glucose (mg/dL) 100 H 102 H (75-99) mg/dL Calcium (8.4-10.2) mg/dL Total Protein (6.3-8.2) g/dL Albumin (3.5-5.0) g/dL Crossmatch 05/20/18 05/20/18 05/20/18 Range/Units 20:51 21:50 22:59 RBC (4.30-5.90) m/uL Hgb (13.0-17.5) gm/dL Hct (39.0-53.0) % Neutrophils # (1.3-7.7) k/uL Lymphocytes # (1.0-4.8) k/uL ABG pH (7.35-7.45) ABG pCO2 (35-45) mmHg ABG pO2 (83-108) mmHg ABG O2 Saturation (94-97) % Sodium (137-145) mmol/L Chloride (98-107) mmol/L Carbon Dioxide (22-30) mmol/L POC Glucose (mg/dL) 110 H 107 H 108 H (75-99) mg/dL Calcium (8.4-10.2) mg/dL Total Protein (6.3-8.2) g/dL Albumin (3.5-5.0) g/dL Crossmatch 05/20/18 05/21/18 05/21/18 Range/Units 23:51 00:58 03:01 RBC (4.30-5.90) m/uL Hgb (13.0-17.5) gm/dL Hct (39.0-53.0) % Neutrophils # (1.3-7.7) k/uL Lymphocytes # (1.0-4.8) k/uL ABG pH (7.35-7.45) ABG pCO2 (35-45) mmHg ABG pO2 (83-108) mmHg ABG O2 Saturation (94-97) % Sodium (137-145) mmol/L Chloride (98-107) mmol/L Carbon Dioxide (22-30) mmol/L POC Glucose (mg/dL) 106 H 115 H 110 H (75-99) mg/dL Calcium (8.4-10.2) mg/dL Total Protein (6.3-8.2) g/dL Albumin (3.5-5.0) g/dL Crossmatch 05/21/18 05/21/18 05/21/18 Range/Units 04:09 04:15 04:15 RBC 3.79 L (4.30-5.90) m/uL Hgb 11.8 L (13.0-17.5) gm/dL Hct 35.8 L (39.0-53.0) % Neutrophils # (1.3-7.7) k/uL Lymphocytes # (1.0-4.8) k/uL ABG pH (7.35-7.45) ABG pCO2 (35-45) mmHg ABG pO2 (83-108) mmHg ABG O2 Saturation (94-97) % Sodium 135 L (137-145) mmol/L Chloride 108 H (98-107) mmol/L Carbon Dioxide 21 L (22-30) mmol/L POC Glucose (mg/dL) 104 H (75-99) mg/dL Calcium 8.3 L (8.4-10.2) mg/dL Total Protein 5.3 L (6.3-8.2) g/dL Albumin 3.2 L (3.5-5.0) g/dL Crossmatch 05/21/18 05/21/18 05/21/18 Range/Units 06:17 06:59 07:52 RBC (4.30-5.90) m/uL Hgb (13.0-17.5) gm/dL Hct (39.0-53.0) % Neutrophils # (1.3-7.7) k/uL Lymphocytes # (1.0-4.8) k/uL ABG pH (7.35-7.45) ABG pCO2 (35-45) mmHg ABG pO2 (83-108) mmHg ABG O2 Saturation (94-97) % Sodium (137-145) mmol/L Chloride (98-107) mmol/L Carbon Dioxide (22-30) mmol/L POC Glucose (mg/dL) 117 H 115 H 137 H (75-99) mg/dL Calcium (8.4-10.2) mg/dL Total Protein (6.3-8.2) g/dL Albumin (3.5-5.0) g/dL Crossmatch 05/21/18 05/21/18 05/21/18 Range/Units 08:54 10:13 11:53 RBC (4.30-5.90) m/uL Hgb (13.0-17.5) gm/dL Hct (39.0-53.0) % Neutrophils # (1.3-7.7) k/uL Lymphocytes # (1.0-4.8) k/uL ABG pH (7.35-7.45) ABG pCO2 (35-45) mmHg ABG pO2 (83-108) mmHg ABG O2 Saturation (94-97) % Sodium (137-145) mmol/L Chloride (98-107) mmol/L Carbon Dioxide (22-30) mmol/L POC Glucose (mg/dL) 152 H 123 H 105 H (75-99) mg/dL Calcium (8.4-10.2) mg/dL Total Protein (6.3-8.2) g/dL Albumin (3.5-5.0) g/dL Crossmatch Assessment and Plan Plan: Severe coronary artery disease status post CABG X# secondary to non-ST elevation HI Postoperative day #1 Aspirin Plavix statin beta blockers Cardiology and cardiothoracic surgery following Pain control Blood sugars well controlled without needing any insulin coverage Postoperative anemia secondary to postoperative blood loss Currently asymptomatic Intermediate to monitor H&H Hypertension currently controlled Continue with JJ inhibitor is an beta blockers Hyperlipidemia Continue statin Smoking Patient counseled to quit smoking Alcohol dependence Low risk for alcohol withdrawal, patient claims last drink was over 10 days of BPH continue with Flomax DVT prophylaxis on heparin subcu 3 times a day
[2018-05-21 17:02] LABS: Glucose,Whole Blood 102 mg/dL (75-99)
[2018-05-21] MEDS: HYDROcodone/APAP 5-325MG 1 EACH TAB PO PRN (20:29)
[2018-05-21 20:30] LABS: Glucose,Whole Blood 133 mg/dL (75-99)
[2018-05-21] MEDS: METOPROLOL TARTRATE 12.5 MG TAB PO SCH (20:30)
[2018-05-21] MEDS: SENNOSIDES-DOCUSATE SODIUM 1 EACH TAB PO SCH (20:30)
[2018-05-22] MEDS: KETOROLAC 30 MG/ML 1 ML VIAL IVP SCH ×4 (00:58→18:13)
[2018-05-22] MEDS: HEPARIN SODIUM,PORCINE 5,000 UNIT/ML 1 ML VIAL SQ SCH ×3 (00:58→17:50)
[2018-05-22 04:36] LABS: Basophils # (A) 0.1 k/uL (0-0.2); Basophils % (A) 1 %; Eosinophils # (A) 0.2 k/uL (0-0.7); Eosinophils % (A) 2 %; HCT 32.6 % (39.0-53.0); HGB 10.6 gm/dL (13.0-17.5); Lymphocytes # (A) 1.2 k/uL (1.0-4.8); Lymphocytes % (A) 14 %; MCH 30.1 pg (25.0-35.0); MCHC 32.4 g/dL (31.0-37.0); MCV 92.7 fL (80.0-100.0); Mean Platelet Volume 8.6; Monocytes # (A) 0.7 k/uL (0-1.0); Monocytes % (A) 8 %; Neutrophils # (A) 6.2 k/uL (1.3-7.7); Neutrophils % (A) 73 %; Platelet Count 165 k/uL (150-450); RBC 3.52 m/uL (4.30-5.90); RDW 13.4 % (11.5-15.5); WBC 8.5 k/uL (3.8-10.6)
[2018-05-22 05:29] LABS: Ionized Calcium 5.1 mg/dL (4.5-5.3)
[2018-05-22] MEDS: HYDROcodone/APAP 5-325MG 1 EACH TAB PO PRN ×2 (05:35→12:37)
[2018-05-22] MEDS: LACTATED RINGERS 1,000 ML IV SCH (05:46)
[2018-05-22 06:01] LABS: ALT 29 U/L (21-72); AST 23 U/L (17-59); Albumin 3.2 g/dL (3.5-5.0); Alkaline Phosphatase 55 U/L (38-126); Anion Gap 6 mmol/L; Blood Urea Nitrogen 13 mg/dL (9-20); Calcium 8.7 mg/dL (8.4-10.2); Carbon Dioxide 24 mmol/L (22-30); Chloride 108 mmol/L (98-107); Glucose 100 mg/dL (74-99); Magnesium 2.1 mg/dL (1.6-2.3); Potassium 4.1 mmol/L (3.5-5.1); Sodium 138 mmol/L (137-145); Total Bilirubin 0.4 mg/dL (0.2-1.3); Total Protein 5.4 g/dL (6.3-8.2)
--- NOTE | 2018-05-22 06:41 | XR ---
EXAMINATION TYPE: XR chest 1V portable DATE OF EXAM: 05/22/2018 HISTORY: Post Operative Cardiac Surgery. REFERENCE: Previous study dated 05/21/2018. FINDINGS: There has been a midline sternotomy. There is a right internal jugular sheath in place. The Crawford-Jennifer catheter is been removed. A left pleural drain remains in place. The heart is mildly enlarged. There is bibasilar airspace disease. I suspect a small left effusion.. IMPRESSION: CONTINUING POSTOPERATIVE CHANGE.
[2018-05-22] MEDS: INSULIN ASPART 100 UNIT/ML 1 ML 10 ML VIAL SQ SCH ×4 (06:54→20:16)
[2018-05-22 06:56] LABS: Glucose,Whole Blood 122 mg/dL (75-99)
[2018-05-22] MEDS: PANTOPRAZOLE 40 MG TABLET PO SCH (06:56)
[2018-05-22] MEDS: ALBUMIN HUMAN 5% 250 ML in EMPTY BAG 1 BAG IVPB PRN ×2 (08:08→09:23)
[2018-05-22] MEDS: ATORVASTATIN 40 MG TAB PO SCH (08:23)
[2018-05-22] MEDS: CLOPIDOGREL 75 MG TAB PO SCH (08:23)
[2018-05-22] MEDS: ASPIRIN 325 MG TAB PO SCH (08:23)
[2018-05-22] MEDS: MUPIROCIN 2% OINT 22 GM TUBE NASAL SCH ×2 (08:24→20:17)
[2018-05-22] MEDS: METOPROLOL TARTRATE 12.5 MG TAB PO SCH ×2 (08:24→20:17)
[2018-05-22] MEDS: TAMSULOSIN 0.4 MG CAP.ER.24H PO SCH (08:24)
[2018-05-22] MEDS: IPRATROPIUM-ALBUTEROL 3 ML NEB INHALATION SCH ×4 (08:58→21:07)
--- NOTE | 2018-05-22 09:14 | P.PN ---
Subjective Progress Note Date: 05/22/18 Principal diagnosis: Status post open heart Progress note dated 05/21/2018 57-year-old male status post three-vessel bypass grafting. He is postop day # 1. He has a history of CAD with previous myocardial infarction with stent placement, hypertension, hyperlipidemia, tobacco dependence, remote history of pneumonia, history of vein stripping and daily alcohol use. On presentation, he presented with chest pain and ruled in for a non-ST segment elevation myocardial infarction. The patient was extubated yesterday within the 6 hour time limited. He is doing well. He is on oxygen at 2 L by nasal cannula. He is getting a saline IV at 30 mL an hour. He is doing about 1500 mL on his incentive spirometer. Actually doing very well today. Chest x-ray shows smaller lung volumes. There may be some basilar atelectasis and small effusions. Minimal cephalization of the upper lobe vessels. Progress note dated 05/22/2018 58 -year-old male, postop day #2, status post three-vessel bypass grafting. The patient has a history of coronary artery disease, previous myocardial infarction with stent, hypertension, hyperlipidemia, chronic tobacco dependence , remote history of pneumonia, history of vein stripping and daily alcohol use. The patient did rule in for a non-ST segment elevation myocardial infarction. Currently, the patient is receiving O2 at 2 L. Also receiving an IV of lactated Ringer's at 30 mL an hour. The patient is getting 1250 mL on his incentive spirometer. Chest x-ray showing typical postoperative changes. White count is 8.5, hemoglobin 10.6, hematocrit 32.6 and platelet count normal. Sodium and potassium are normal. Chloride 108, CO2 24, anion gap 6, and BUN and creatinine were 13 and 0.70, respectively. Objective - Vital Signs Vital signs: Vital Signs Temp 98.4 F 05/22/18 04:00 Pulse 75 05/22/18 08:58 Resp 20 05/22/18 07:00 BP 106/63 05/22/18 06:30 Pulse Ox 95 05/22/18 07:00 Intake & Output 05/21/18 05/22/18 05/22/18 18:59 06:59 18:59 Intake Total 936 1112 36 Output Total 1208 6995 25 Balance -319 -1083 11 Weight 87.5 kg 87.8 kg Intake: IV 936 812 36 Albumin Human 5% 250 ml 500 In Empty Bag 1 bag @ 250 mls/hr IVPB Q1HR PRN Rx#: [id number] CO/CI 20 Lactated Ringers 1,000 ml 350 740 30 @ 20 mls/hr IV .Q24H SONIA Rx#:[id number] Pressure Bag 66 72 6 Oral 300 Output: Chest Tube Drainage 320 370 Left Pleural/Mediastinal 320 370 Urine 935 1825 25 Other: Voiding Method Indwelling Catheter Indwelling Catheter ABP, PAP, CO, CI - Last Documented Arterial Blood Pressure 111/49 Pulmonary Artery Pressure 39/20 Cardiac Output 7.3 Cardiac Index 3.7 - Exam No acute distress, oriented 3. Nasal O2 in place at 2 L. HEENT examination is grossly unremarkable. Mucous membranes are moist. No oral lesions. Neck supple. Full range of motion. No adenopathy thyromegaly or neck vein distention. Cardiovascular examination reveals regular rhythm rate. S1-S2 normal. No S3 or S4. No discernible murmur noted. Lungs reveal occasional mild coarse rhonchi. Breath sounds equal bilaterally. A few scattered crackles. No wheezes noted. Breath sounds. They are better than they were yesterday. He is more clear. Abdomen soft bowel sounds are heard. No masses or tenderness. Extremities are intact. No cyanosis clubbing or edema. Skin is without rash or lesion. Neurologic examination is brief but nonfocal. - Labs CBC & Chem 7: 05/22/18 04:22 05/22/18 04:22 Labs: Abnormal Lab Results - Last 24 Hours (Table) 05/21/18 05/21/18 05/21/18 Range/Units 10:13 11:53 17:00 RBC (4.30-5.90) m/uL Hgb (13.0-17.5) gm/dL Hct (39.0-53.0) % Chloride (98-107) mmol/L Glucose (74-99) mg/dL POC Glucose (mg/dL) 123 H 105 H 102 H (75-99) mg/dL Total Protein (6.3-8.2) g/dL Albumin (3.5-5.0) g/dL 05/21/18 05/22/18 05/22/18 Range/Units 20:28 04:22 04:22 RBC 3.52 L (4.30-5.90) m/uL Hgb 10.6 L (13.0-17.5) gm/dL Hct 32.6 L (39.0-53.0) % Chloride 108 H (98-107) mmol/L Glucose 100 H (74-99) mg/dL POC Glucose (mg/dL) 133 H (75-99) mg/dL Total Protein 5.4 L (6.3-8.2) g/dL Albumin 3.2 L (3.5-5.0) g/dL 05/22/18 Range/Units 06:53 RBC (4.30-5.90) m/uL Hgb (13.0-17.5) gm/dL Hct (39.0-53.0) % Chloride (98-107) mmol/L Glucose (74-99) mg/dL POC Glucose (mg/dL) 122 H (75-99) mg/dL Total Protein (6.3-8.2) g/dL Albumin (3.5-5.0) g/dL Assessment and Plan Assessment: Assessment Postop day #2, status post three-vessel bypass grafting, done off pump. Postoperative ventilator management, resolved. History of CAD with previous myocardial infarction Previous stent placement History of hypertension History of hyperlipidemia History of chronic tobacco dependence Remote history of pneumonia Previous history of vein stripping History of daily alcohol use Plan: Plan dated 05/20/2018 The patient's blood gases seem reasonable. He is awake and alert. Weaning parameters are excellent. He's mildly acidotic. He does arouse appropriately and has excellent tidal volumes and vital capacities. I've asked respiratory therapist to check a cuff leak. If positive, he can be extubated. He is currently not on any sedation. Hemodynamically he seems stable. Plan dated 05/21/2018 The patient will continue using his incentive spirometer. We'll encourage it every hour. In addition, we'll recommend deep breathing coughing and clearing of secretions. The patient will stay on the updrafts 4 times a day and when necessary. We'll continue to watch his chest x-ray very carefully. The patient seemed be doing relatively well. Hopefully today he'll get some of his hardware out. Additional recommendations and suggestions are forthcoming. Labs x-rays a medications are reviewed. White count is 8.6, hemoglobin 11.8, 35.8 is a hematocrit. PT INR are normal. Sodium 135 potassium 4.6 chloride is 108 CO2 21 BUN and creatinine 14 and 0.7. Critical-care time 34 minutes Plan dated 05/22/2018 The patient continues to show improvement. He is doing reasonably well on his incentive spirometer. Still encouraged him to deep breathe cough and clear secretions. He still on supplemental oxygen at 2 L. Hemodynamics are stable. He receiving lactated Ringer's IV at 30 mL an hour. Labs are reviewed. X-rays reviewed. Continues to show slight improvement. Medications are reviewed. I will continue to follow the patient along and make sure he shows continued and ongoing improvement until eventual discharge. Critical care time 31 minutes Time with Patient: Greater than 30
--- NOTE | 2018-05-22 10:02 | PN ---
PROGRESS NOTE Mr. Dean is 58-year-old male who has underwent coronary artery bypass grafting. He is feeling well this morning. He is sitting up in the chair. He is denying any chest pain. His breathing has been stable. He has no dizziness or palpitation. He continues to be in sinus mechanism. Hemodynamically, he is stable. He is on aspirin once a day, Lipitor 40 mg daily, Plavix 75 mg daily, metoprolol tartrate 12.5 mg twice a day. PHYSICAL EXAMINATION: Blood pressure 111/50 with a heart rate in the 70s. Lungs with a few crackles at the bases. HEART: Regular rate and rhythm S1, S2. No S3. No rub. ABDOMEN: Soft, nontender. EXTREMITIES: No significant edema. LAB DATA: Revealed a hemoglobin 10.6, BUN and creatinine 13 and 0.7. IMPRESSION: 1. Status post coronary artery bypass grafting stable. 2. Prior history of smoking. 3. History of hypertension. 4. Hyperlipidemia. RECOMMENDATION: From the cardiac standpoint, we will continue present therapy. Continuing aggressive incentive spirometry. Depending on his progress, further recommendation will be made. MMODL / IJN: [id number] /
--- NOTE | 2018-05-22 10:53 | P.PN ---
Subjective Progress Note Date: 05/22/18 Principal diagnosis: Coronary artery disease. Previous medical history of myocardial infarction with stent placement, hypertension, hyperlipidemia, current tobacco dependence, mild COPD with preoperative FEV1 69% of predicted, remote history of pneumonia, history of vein stripping, daily EtOH use. POD #2 off-pump coronary artery bypass grafting 3 with CORTES to the LAD and saphenous vein grafts to the posterior descending coronary artery and diagonal coronary artery with endovascular harvest of the left greater saphenous vein. Intraoperative transesophageal echocardiogram completed by anesthesiology. The patient is currently sitting up in the chair in no acute distress. Denies pain, shortness of breath. No new concerns. Objective - Vital Signs Vital signs: Vital Signs Temp 98.7 F 05/22/18 08:00 Pulse 83 05/22/18 09:30 Resp 33 H 05/22/18 09:30 BP 96/58 05/22/18 09:30 Pulse Ox 94 L 05/22/18 09:30 Intake & Output 05/21/18 05/22/18 05/22/18 18:59 06:59 18:59 Intake Total 936 1112 548 Output Total 1255 2195 65 Balance -319 -1083 483 Weight 87.5 kg 87.8 kg 87.8 kg Intake: IV 936 812 548 Albumin Human 5% 250 ml 500 500 In Empty Bag 1 bag @ 250 mls/hr IVPB Q1HR PRN Rx#: [id number] CO/CI 20 Lactated Ringers 1,000 ml 350 740 30 @ 20 mls/hr IV .Q24H SONIA Rx#:[id number] Pressure Bag 66 72 18 Oral 300 Output: Chest Tube Drainage 320 370 20 Left Pleural/Mediastinal 320 370 20 Urine 935 1825 45 Other: Voiding Method Indwelling Catheter Indwelling Catheter ABP, PAP, CO, CI - Last Documented Arterial Blood Pressure 94/43 Pulmonary Artery Pressure 39/20 Cardiac Output 7.3 Cardiac Index 3.7 - Constitutional General appearance: Present: cooperative, no acute distress - Respiratory Details: Lungs sounds clear bilaterally. Respirations even, nonlabored. Currently on 2 L nasal cannula with oxygen saturation 95%. Strong effective cough. Mediastinal/left pleural chest tube to continuous wall suction, 250 mL serosanguineous drainage overnight, 650 mL in the last 24 hours. No air leak present. - Cardiovascular Details: S1, S2 present. Regular rate and rhythm, sinus rhythm on telemetry. Sternum stable. Palpable peripheral pulses bilaterally. No edema present. No calf pain or tenderness noted. Right internal jugular Cordis, right radial arterial line present. Heart hugger in place with patient demonstrating appropriate use. Antiembolism stockings, SCDs present. - Gastrointestinal Gastrointestinal Comment(s): Abdomen soft, nontender, nondistended. Active bowel sounds 4 quadrants. Tolerating diet. Positive flatus. - Genitourinary Genitourinary Comment(s): Du present draining clear, yellow urine. Output 100-230 mL/h overnight with tapering off this morning. - Integumentary Integumentary Comment(s): Skin is warm and dry with evidence of good perfusion. Anterior chest incision well approximated, dry intact dressing. Left lower extremity EVH site well approximated. - Neurologic Neurologic: Present: CNII-XII intact - Musculoskeletal Musculoskeletal: Present: gait normal, strength equal bilaterally - Psychiatric Psychiatric: Present: A&O x's 3, appropriate affect, intact judgment & insight - Allied health notes Allied health notes reviewed: nursing - Labs CBC & Chem 7: 05/22/18 04:22 05/22/18 04:22 Labs: Abnormal Lab Results - Last 24 Hours (Table) 05/21/18 05/21/18 05/21/18 Range/Units 11:53 17:00 20:28 RBC (4.30-5.90) m/uL Hgb (13.0-17.5) gm/dL Hct (39.0-53.0) % Chloride (98-107) mmol/L Glucose (74-99) mg/dL POC Glucose (mg/dL) 105 H 102 H 133 H (75-99) mg/dL Total Protein (6.3-8.2) g/dL Albumin (3.5-5.0) g/dL 05/22/18 05/22/18 05/22/18 Range/Units 04:22 04:22 06:53 RBC 3.52 L (4.30-5.90) m/uL Hgb 10.6 L (13.0-17.5) gm/dL Hct 32.6 L (39.0-53.0) % Chloride 108 H (98-107) mmol/L Glucose 100 H (74-99) mg/dL POC Glucose (mg/dL) 122 H (75-99) mg/dL Total Protein 5.4 L (6.3-8.2) g/dL Albumin 3.2 L (3.5-5.0) g/dL - Imaging and Cardiology Chest x-ray: report reviewed, image reviewed Assessment and Plan (1) Daily consumption of alcohol Current Visit: Yes Status: Chronic Code(s): HFF3385 - SNOMED Code(s): 807614342 (2) Essential hypertension Current Visit: Yes Status: Chronic Code(s): I10 - ESSENTIAL (PRIMARY) HYPERTENSION SNOMED Code(s): 49932767 (3) Hyperlipidemia Current Visit: Yes Status: Chronic Code(s): E78.5 - HYPERLIPIDEMIA, UNSPECIFIED SNOMED Code(s): 94272257 (4) Presence of stent in coronary artery in patient with coronary artery disease Current Visit: Yes Status: Chronic Code(s): I25.10 - ATHSCL HEART DISEASE OF [place] CORONARY ARTERY W/O ANG PCTRS; Z95.5 - PRESENCE OF CORONARY ANGIOPLASTY IMPLANT AND GRAFT SNOMED Code(s): 846448939 (5) Tobacco dependence Current Visit: Yes Status: Chronic Code(s): F17.200 - NICOTINE DEPENDENCE, UNSPECIFIED, UNCOMPLICATED SNOMED Code(s): 55472507 (6) History of myocardial infarction Current Visit: No Status: Resolved Code(s): I25.2 - OLD MYOCARDIAL INFARCTION SNOMED Code(s): 397348264 (7) CAD (coronary artery disease) Current Visit: Yes Status: Chronic Code(s): I25.10 - ATHSCL HEART DISEASE OF [place] CORONARY ARTERY W/O ANG PCTRS SNOMED Code(s): 33899740 Plan: 1. Continue aspirin, statin, Plavix, heparin, beta sagrario. Will increase beta sagrario therapy as tolerated. 2. Wean O2 as tolerated. Encourage incentive spirometry use 10 times every hour. 3. Encourage smoking cessation. 4. Increase activity, ambulate as tolerated. PT/OT/cardiac rehab following. 5. Insulin management per primary care service. 6. Pain management with ordered medication regimen. 7. Will monitor daily labs and x-rays. 8. Bronchodilators per pulmonology. 9. GI/DVT prophylaxis. 10. Will separate mediastinal left pleural chest tubes, will discontinue mediastinal chest tubes. 11. May transfer to [facility] later this afternoon if bed available. 12. More recommendations to follow. Time with Patient: Greater than 30
[2018-05-22 12:11] LABS: Glucose,Whole Blood 125 mg/dL (75-99)
[2018-05-22] MEDS: THIAMINE 100 MG TAB PO SCH (12:37)
[2018-05-22] MEDS: MULTIVITAMINS, THERA 1 EACH TAB PO SCH (12:37)
[2018-05-22] MEDS: FOLIC ACID 1 MG TAB PO SCH (12:37)
--- NOTE | 2018-05-22 15:29 | P.PN ---
Subjective Progress Note Date: 05/22/18 Principal diagnosis: The patient is a 58-year-old male with a past medical history of coronary artery disease with multiple stents that presented and was admitted with a non-ST elevation IN and had a left heart catheterization that showed severe triple vessel disease. The patient underwent three-vessel CABG with CORTES to the LAD and saphenous vein graft to the posterior descending coronary artery. The patient is sitting up in bed, reports that he was sitting up bedside previously. Patient sister and mother are present,. Currently postop day #2, denies any shortness of breath Or chest pain today. no arrhythmia, patient apparently had orthostatic vital signs earlier but now they're stable Objective - Vital Signs Vital signs: Vital Signs Temp 98.3 F 05/22/18 12:00 Pulse 72 05/22/18 14:30 Resp 14 05/22/18 14:30 BP 81/50 05/22/18 14:30 Pulse Ox 94 L 05/22/18 14:30 Intake & Output 05/21/18 05/22/18 05/22/18 18:59 06:59 18:59 Intake Total 936 1112 566 Output Total 1255 2195 350 Balance -319 -1083 216 Weight 87.5 kg 87.8 kg 87.8 kg Intake: IV 936 812 566 Albumin Human 5% 250 ml 500 500 In Empty Bag 1 bag @ 250 mls/hr IVPB Q1HR PRN Rx#: [id number] CO/CI 20 Lactated Ringers 1,000 ml 350 740 30 @ 20 mls/hr IV .Q24H SONIA Rx#:[id number] Pressure Bag 66 72 36 Oral 300 Output: Chest Tube Drainage 320 370 20 Left Pleural/Mediastinal 320 370 20 Urine 935 1825 330 Other: Voiding Method Indwelling Catheter Indwelling Catheter Indwelling Catheter ABP, PAP, CO, CI - Last Documented Arterial Blood Pressure 104/47 Pulmonary Artery Pressure 39/20 Cardiac Output 7.3 Cardiac Index 3.7 - Exam Constitutional: No acute distress, conversant, pleasant Eyes: Anicteric sclerae, moist conjunctiva, no lid-lag, PERRLA ENMT: NC/AT,Oropharynx clear, no erythema, exudates Neck:Supple, FROM, no masses, or JVD, No carotid bruits; No thyromegaly Lungs: Clear to auscultation, Clear to percussion, Normal respiratory effort, no accessory muscle use, patient using incentive spirometer Cardiovascular: Normal S1 and S2 present. Regular rate and rhythm, Palpable peripheral pulses bilaterally. No edema present. No calf pain or tenderness noted. Right internal jugular [place]/Cordis, right radial arterial line present. Heart hugger in place Abdominal: Soft Nontender, nom distended, no guarding, no rebound or rigidity, Normoactive bowel sounds No hepatomegaly, No splenomegaly, No palpable mass No abdominal wall hernia noted Skin: Normal temperature, tone, texture, turgor, No induration No subcutaneous nodules, No rash, lesions, No ulcers Extremities:No digital cyanosis No clubbing, Pedal pulses intact and symmetrical Radial pulses intact and symmetrical Normal gait and station, No calf tenderness Psychiatric: Alert and oriented to person, place and time, Appropriate affect Intact judgement Neuro: Muscles Strength 5/5 in all 4 extremities, Sensation to light touch grossly present throughout, Cranial nerves II-XII grossly intact. No focal sensory deficits - Labs CBC & Chem 7: 05/22/18 04:22 05/22/18 04:22 Labs: Abnormal Lab Results - Last 24 Hours (Table) 05/21/18 05/21/18 05/22/18 Range/Units 17:00 20:28 04:22 RBC (4.30-5.90) m/uL Hgb (13.0-17.5) gm/dL Hct (39.0-53.0) % Chloride 108 H (98-107) mmol/L Glucose 100 H (74-99) mg/dL POC Glucose (mg/dL) 102 H 133 H (75-99) mg/dL Total Protein 5.4 L (6.3-8.2) g/dL Albumin 3.2 L (3.5-5.0) g/dL 05/22/18 05/22/18 05/22/18 Range/Units 04:22 06:53 12:09 RBC 3.52 L (4.30-5.90) m/uL Hgb 10.6 L (13.0-17.5) gm/dL Hct 32.6 L (39.0-53.0) % Chloride (98-107) mmol/L Glucose (74-99) mg/dL POC Glucose (mg/dL) 122 H 125 H (75-99) mg/dL Total Protein (6.3-8.2) g/dL Albumin (3.5-5.0) g/dL Assessment and Plan Plan: Severe coronary artery disease status post CABG X# secondary to non-ST elevation IN Postoperative day #2 Aspirin Plavix statin beta blockers Cardiology and cardiothoracic surgery following Pain control Blood sugars well controlled without needing any insulin coverage Postoperative anemia secondary to postoperative blood loss Currently asymptomatic Intermediate to monitor H&H Hypertension currently controlled Continue with JJ inhibitor is an beta blockers Hyperlipidemia Continue statin Smoking Patient counseled to quit smoking Alcohol dependence Low risk for alcohol withdrawal, patient claims last drink was over 10 days of BPH continue with Flomax DVT prophylaxis on heparin subcu 3 times a day Disposition * Safely transferred to [facility] will need to have his Du catheter Artline and cordis removed * Continue and encourage ambulation
[2018-05-22 16:37] LABS: Glucose,Whole Blood 162 mg/dL (75-99)
[2018-05-22] MEDS: SENNOSIDES-DOCUSATE SODIUM 1 EACH TAB PO SCH (20:17)
[2018-05-22 20:18] LABS: Glucose,Whole Blood 154 mg/dL (75-99)
[2018-05-23] MEDS: KETOROLAC 30 MG/ML 1 ML VIAL IVP SCH ×4 (00:24→18:15)
[2018-05-23] MEDS: HEPARIN SODIUM,PORCINE 5,000 UNIT/ML 1 ML VIAL SQ SCH ×4 (00:27→23:20)
[2018-05-23 02:02] LABS: Glucose,Whole Blood 118 mg/dL (75-99)
[2018-05-23 05:33] LABS: HCT 29.5 % (39.0-53.0); HGB 10.2 gm/dL (13.0-17.5); MCH 31.9 pg (25.0-35.0); MCHC 34.5 g/dL (31.0-37.0); MCV 92.4 fL (80.0-100.0); Mean Platelet Volume 8.8; Platelet Count 162 k/uL (150-450); RBC 3.19 m/uL (4.30-5.90); RDW 13.6 % (11.5-15.5); WBC 8.8 k/uL (3.8-10.6)
[2018-05-23 05:58] LABS: ALT 24 U/L (21-72); AST 33 U/L (17-59); Albumin 3.1 g/dL (3.5-5.0); Alkaline Phosphatase 43 U/L (38-126); Anion Gap 8 mmol/L; Blood Urea Nitrogen 15 mg/dL (9-20); Calcium 8.6 mg/dL (8.4-10.2); Carbon Dioxide 21 mmol/L (22-30); Chloride 109 mmol/L (98-107); Glucose 104 mg/dL (74-99); Sodium 138 mmol/L (137-145); Total Bilirubin 0.6 mg/dL (0.2-1.3); Total Protein 5.3 g/dL (6.3-8.2)
[2018-05-23 06:23] LABS: Potassium 4.7 mmol/L (3.5-5.1)
--- NOTE | 2018-05-23 06:40 | XR ---
EXAMINATION TYPE: XR chest 2V DATE OF EXAM: 05/23/2018 HISTORY: post cardiac surgery. REFERENCE: NONE. FINDINGS: There has been a midline sternotomy. There is a left pleural drain in place. Heart is mildly enlarged. There is bibasilar atelectasis. I suspect small effusions. IMPRESSION: 1. MILD CARDIOMEGALY. 2. BIBASILAR ATELECTASIS. 3. SMALL, BILATERAL EFFUSIONS.
[2018-05-23] MEDS: LACTATED RINGERS 1,000 ML IV SCH (06:51)
[2018-05-23 07:21] LABS: Glucose,Whole Blood 106 mg/dL (75-99)
[2018-05-23] MEDS: IPRATROPIUM-ALBUTEROL 3 ML NEB INHALATION SCH ×4 (07:43→19:24)
[2018-05-23] MEDS: INSULIN ASPART 100 UNIT/ML 1 ML 10 ML VIAL SQ SCH ×4 (08:38→21:32)
--- NOTE | 2018-05-23 08:39 | P.PN ---
Subjective Progress Note Date: 05/23/18 Principal diagnosis: Coronary artery disease. Previous medical history of myocardial infarction with stent placement, hypertension, hyperlipidemia, current tobacco dependence, mild COPD with preoperative FEV1 69% of predicted, remote history of pneumonia, history of vein stripping, daily EtOH use. POD #3 off-pump coronary artery bypass grafting 3 with CORTES to the LAD and saphenous vein grafts to the posterior descending coronary artery and diagonal coronary artery with endovascular harvest of the left greater saphenous vein. Intraoperative transesophageal echocardiogram completed by anesthesiology. The patient is currently lying in bed in no acute distress. Denies pain, shortness of breath. No new concerns. Objective - Vital Signs Vital signs: Vital Signs Temp 98.9 F 05/23/18 00:00 Pulse 82 05/23/18 07:53 Resp 22 05/23/18 05:00 BP 129/75 05/23/18 05:00 Pulse Ox 93 L 05/23/18 05:00 Intake & Output 05/22/18 05/23/18 05/23/18 18:59 06:59 18:59 Intake Total 566 210 Output Total 655 606 Balance -89 -396 Weight 87.8 kg 88.9 kg Intake: IV 566 210 Albumin Human 5% 250 ml 500 In Empty Bag 1 bag @ 250 mls/hr IVPB Q1HR PRN Rx#: [id number] Lactated Ringers 1,000 ml 30 210 @ 20 mls/hr IV .Q24H SONIA Rx#:[id number] Pressure Bag 36 Output: Chest Tube Drainage 80 186 Left Pleural 60 186 Left Pleural/Mediastinal 20 Urine 575 420 Other: Voiding Method Indwelling Catheter Urinal ABP, PAP, CO, CI - Last Documented Arterial Blood Pressure 122/57 Pulmonary Artery Pressure 39/20 Cardiac Output 7.3 Cardiac Index 3.7 - Constitutional General appearance: Present: cooperative, no acute distress - Respiratory Details: Lungs sounds clear bilaterally. Respirations even, nonlabored. Currently on room air with oxygen saturation 93%. Strong effective cough. Left pleural chest tube to continuous wall suction, 100 mL serosanguineous drainage overnight , 350 mL in the last 24 hours. No air leak present. - Cardiovascular Details: S1, S2 present. Regular rate and rhythm, sinus rhythm on telemetry. Sternum stable. Palpable peripheral pulses bilaterally. No edema present. No calf pain or tenderness noted. Heart hugger in place with patient demonstrating appropriate use. Antiembolism stockings, SCDs present. - Gastrointestinal Gastrointestinal Comment(s): Abdomen soft, nontender, nondistended. Active bowel sounds 4 quadrants. Tolerating diet. Positive flatus. - Genitourinary Genitourinary Comment(s): Du discontinued yesterday. Patient continues to void clear, yellow urine. - Integumentary Integumentary Comment(s): Skin is warm and dry with evidence of good perfusion. Anterior chest incision well approximated, dry intact dressing. Left lower extremity EVH site well approximated. - Neurologic Neurologic: Present: CNII-XII intact - Musculoskeletal Musculoskeletal: Present: gait normal, strength equal bilaterally - Psychiatric Psychiatric: Present: A&O x's 3, appropriate affect, intact judgment & insight - Allied health notes Allied health notes reviewed: nursing - Labs CBC & Chem 7: 05/23/18 04:25 05/23/18 04:25 Labs: Abnormal Lab Results - Last 24 Hours (Table) 05/22/18 05/22/18 05/22/18 Range/Units 12:09 16:34 20:13 RBC (4.30-5.90) m/uL Hgb (13.0-17.5) gm/dL Hct (39.0-53.0) % Chloride (98-107) mmol/L Carbon Dioxide (22-30) mmol/L Creatinine (0.66-1.25) mg/dL Glucose (74-99) mg/dL POC Glucose (mg/dL) 125 H 162 H 154 H (75-99) mg/dL Total Protein (6.3-8.2) g/dL Albumin (3.5-5.0) g/dL 05/23/18 05/23/18 05/23/18 Range/Units 02:00 04:25 04:25 RBC 3.19 L (4.30-5.90) m/uL Hgb 10.2 L (13.0-17.5) gm/dL Hct 29.5 L (39.0-53.0) % Chloride 109 H (98-107) mmol/L Carbon Dioxide 21 L (22-30) mmol/L Creatinine 0.60 L (0.66-1.25) mg/dL Glucose 104 H (74-99) mg/dL POC Glucose (mg/dL) 118 H (75-99) mg/dL Total Protein 5.3 L (6.3-8.2) g/dL Albumin 3.1 L (3.5-5.0) g/dL 05/23/18 Range/Units 07:19 RBC (4.30-5.90) m/uL Hgb (13.0-17.5) gm/dL Hct (39.0-53.0) % Chloride (98-107) mmol/L Carbon Dioxide (22-30) mmol/L Creatinine (0.66-1.25) mg/dL Glucose (74-99) mg/dL POC Glucose (mg/dL) 106 H (75-99) mg/dL Total Protein (6.3-8.2) g/dL Albumin (3.5-5.0) g/dL - Imaging and Cardiology Chest x-ray: report reviewed, image reviewed Assessment and Plan (1) Daily consumption of alcohol Current Visit: Yes Status: Chronic Code(s): AXG3509 - SNOMED Code(s): 372832348 (2) Essential hypertension Current Visit: Yes Status: Chronic Code(s): I10 - ESSENTIAL (PRIMARY) HYPERTENSION SNOMED Code(s): 35501218 (3) Hyperlipidemia Current Visit: Yes Status: Chronic Code(s): E78.5 - HYPERLIPIDEMIA, UNSPECIFIED SNOMED Code(s): 67017447 (4) Presence of stent in coronary artery in patient with coronary artery disease Current Visit: Yes Status: Chronic Code(s): I25.10 - ATHSCL HEART DISEASE OF [place] CORONARY ARTERY W/O ANG PCTRS; Z95.5 - PRESENCE OF CORONARY ANGIOPLASTY IMPLANT AND GRAFT SNOMED Code(s): 877994237 (5) Tobacco dependence Current Visit: Yes Status: Chronic Code(s): F17.200 - NICOTINE DEPENDENCE, UNSPECIFIED, UNCOMPLICATED SNOMED Code(s): 69774138 (6) History of myocardial infarction Current Visit: No Status: Resolved Code(s): I25.2 - OLD MYOCARDIAL INFARCTION SNOMED Code(s): 476106656 (7) CAD (coronary artery disease) Current Visit: Yes Status: Chronic Code(s): I25.10 - ATHSCL HEART DISEASE OF [place] CORONARY ARTERY W/O ANG PCTRS SNOMED Code(s): 54268291 Plan: 1. Continue aspirin, statin, Plavix, heparin, beta sagrario. Lopressor increased to 25 mg twice daily. Will increase beta sagrario therapy as tolerated. 2. Encourage incentive spirometry use 10 times every hour. 3. Encourage smoking cessation. 4. Increase activity, ambulate as tolerated. PT/OT/cardiac rehab following. 5. Insulin management per primary care service. 6. Pain management with ordered medication regimen. 7. Will monitor daily labs and x-rays. 8. Bronchodilators per pulmonology. 9. GI/DVT prophylaxis. 10. Will discontinue left pleural chest tube today. 11. Transfer orders placed yesterday. May transfer to [facility] when bed available. 12. More recommendations to follow. Time with Patient: Greater than 30
[2018-05-23] MEDS: CLOPIDOGREL 75 MG TAB PO SCH (08:40)
[2018-05-23] MEDS: ATORVASTATIN 40 MG TAB PO SCH (08:40)
[2018-05-23] MEDS: TAMSULOSIN 0.4 MG CAP.ER.24H PO SCH (08:40)
[2018-05-23] MEDS: PANTOPRAZOLE 40 MG TABLET PO SCH (08:41)
[2018-05-23] MEDS: ASPIRIN 325 MG TAB PO SCH (08:41)
[2018-05-23] MEDS: HYDROcodone/APAP 5-325MG 1 EACH TAB PO PRN (08:48)
[2018-05-23] MEDS: METOPROLOL TARTRATE 25 MG TAB PO SCH ×2 (08:50→21:32)
[2018-05-23] MEDS: MUPIROCIN 2% OINT 22 GM TUBE NASAL SCH ×2 (08:51→21:31)
--- NOTE | 2018-05-23 09:28 | P.PN ---
Subjective Progress Note Date: 05/23/18 Principal diagnosis: Status post open heart Progress note dated 05/21/2018 57-year-old male status post three-vessel bypass grafting. He is postop day # 1. He has a history of CAD with previous myocardial infarction with stent placement, hypertension, hyperlipidemia, tobacco dependence, remote history of pneumonia, history of vein stripping and daily alcohol use. On presentation, he presented with chest pain and ruled in for a non-ST segment elevation myocardial infarction. The patient was extubated yesterday within the 6 hour time limited. He is doing well. He is on oxygen at 2 L by nasal cannula. He is getting a saline IV at 30 mL an hour. He is doing about 1500 mL on his incentive spirometer. Actually doing very well today. Chest x-ray shows smaller lung volumes. There may be some basilar atelectasis and small effusions. Minimal cephalization of the upper lobe vessels. Progress note dated 05/22/2018 58 -year-old male, postop day #2, status post three-vessel bypass grafting. The patient has a history of coronary artery disease, previous myocardial infarction with stent, hypertension, hyperlipidemia, chronic tobacco dependence , remote history of pneumonia, history of vein stripping and daily alcohol use. The patient did rule in for a non-ST segment elevation myocardial infarction. Currently, the patient is receiving O2 at 2 L. Also receiving an IV of lactated Ringer's at 30 mL an hour. The patient is getting 1250 mL on his incentive spirometer. Chest x-ray showing typical postoperative changes. White count is 8.5, hemoglobin 10.6, hematocrit 32.6 and platelet count normal. Sodium and potassium are normal. Chloride 108, CO2 24, anion gap 6, and BUN and creatinine were 13 and 0.70, respectively. Progress note dated 05/23/2018 58-year-old male who is postop day #3 status post three-vessel bypass grafting. The patient does have a history of coronary artery disease, which necessitated the bypass, previous myocardial infarction with stent, hypertension , hyperlipidemia, chronic tobacco dependence, history of pneumonia, previous vein stripping and daily alcohol use. The patient did rule in for a non-ST segment elevation myocardial infarction. Currently, he has been transitioned to room air. His IV is saline at KVO. He is getting about 1250 on his incentive spirometer. He does have surgical site discomfort/pain. His chest x- ray shows some mild cardiomegaly small bilateral effusions and some bibasilar atelectasis. His white count is 8.8 hemoglobin 10.2 hematocrit 29.5 and platelet count 162,000. Sodium potassium normal. Chloride 109 CO2 21. BUN and creatinine were 15 and 0.6. He denies any chest pain or chest discomfort. He is not coughing producing any phlegm. No nausea vomiting diarrhea or genitourinary complaints Objective - Vital Signs Vital signs: Vital Signs Temp 98.9 F 05/23/18 00:00 Pulse 82 05/23/18 07:53 Resp 22 05/23/18 05:00 BP 129/75 05/23/18 05:00 Pulse Ox 93 L 05/23/18 05:00 Intake & Output 05/22/18 05/23/18 05/23/18 18:59 06:59 18:59 Intake Total 566 210 Output Total 655 606 Balance -89 -396 Weight 87.8 kg 88.9 kg Intake: IV 566 210 Albumin Human 5% 250 ml 500 In Empty Bag 1 bag @ 250 mls/hr IVPB Q1HR PRN Rx#: [id number] Lactated Ringers 1,000 ml 30 210 @ 20 mls/hr IV .Q24H SONIA Rx#:[id number] Pressure Bag 36 Output: Chest Tube Drainage 80 186 Left Pleural 60 186 Left Pleural/Mediastinal 20 Urine 575 420 Other: Voiding Method Indwelling Catheter Urinal ABP, PAP, CO, CI - Last Documented Arterial Blood Pressure 122/57 Pulmonary Artery Pressure 39/20 Cardiac Output 7.3 Cardiac Index 3.7 - Exam No acute distress, oriented 3. Not requiring any supplemental oxygen at this time. HEENT examination is grossly unremarkable. Mucous membranes are moist. No oral lesions. Neck supple. Full range of motion. No adenopathy thyromegaly or neck vein distention. Cardiovascular examination reveals regular rhythm rate. S1-S2 normal. No S3 or S4. No discernible murmur noted. Lungs reveal occasional mild coarse rhonchi. Breath sounds equal bilaterally. No wheezes noted. Breath sounds. They are better than they were yesterday. He is more clear. Abdomen soft bowel sounds are heard. No masses or tenderness. Extremities are intact. No cyanosis clubbing or edema. Skin is without rash or lesion. Neurologic examination is brief but nonfocal. - Labs CBC & Chem 7: 05/23/18 04:25 05/23/18 04:25 Labs: Abnormal Lab Results - Last 24 Hours (Table) 05/22/18 05/22/18 05/22/18 Range/Units 12:09 16:34 20:13 RBC (4.30-5.90) m/uL Hgb (13.0-17.5) gm/dL Hct (39.0-53.0) % Chloride (98-107) mmol/L Carbon Dioxide (22-30) mmol/L Creatinine (0.66-1.25) mg/dL Glucose (74-99) mg/dL POC Glucose (mg/dL) 125 H 162 H 154 H (75-99) mg/dL Total Protein (6.3-8.2) g/dL Albumin (3.5-5.0) g/dL 05/23/18 05/23/18 05/23/18 Range/Units 02:00 04:25 04:25 RBC 3.19 L (4.30-5.90) m/uL Hgb 10.2 L (13.0-17.5) gm/dL Hct 29.5 L (39.0-53.0) % Chloride 109 H (98-107) mmol/L Carbon Dioxide 21 L (22-30) mmol/L Creatinine 0.60 L (0.66-1.25) mg/dL Glucose 104 H (74-99) mg/dL POC Glucose (mg/dL) 118 H (75-99) mg/dL Total Protein 5.3 L (6.3-8.2) g/dL Albumin 3.1 L (3.5-5.0) g/dL 05/23/18 Range/Units 07:19 RBC (4.30-5.90) m/uL Hgb (13.0-17.5) gm/dL Hct (39.0-53.0) % Chloride (98-107) mmol/L Carbon Dioxide (22-30) mmol/L Creatinine (0.66-1.25) mg/dL Glucose (74-99) mg/dL POC Glucose (mg/dL) 106 H (75-99) mg/dL Total Protein (6.3-8.2) g/dL Albumin (3.5-5.0) g/dL Assessment and Plan Assessment: Assessment Postop day #3, status post three-vessel bypass grafting, done off pump. Postoperative ventilator management, resolved. History of CAD with previous myocardial infarction Previous stent placement History of hypertension History of hyperlipidemia History of chronic tobacco dependence Remote history of pneumonia Previous history of vein stripping History of daily alcohol use Plan: Plan dated 05/20/2018 The patient's blood gases seem reasonable. He is awake and alert. Weaning parameters are excellent. He's mildly acidotic. He does arouse appropriately and has excellent tidal volumes and vital capacities. I've asked respiratory therapist to check a cuff leak. If positive, he can be extubated. He is currently not on any sedation. Hemodynamically he seems stable. Plan dated 05/21/2018 The patient will continue using his incentive spirometer. We'll encourage it every hour. In addition, we'll recommend deep breathing coughing and clearing of secretions. The patient will stay on the updrafts 4 times a day and when necessary. We'll continue to watch his chest x-ray very carefully. The patient seemed be doing relatively well. Hopefully today he'll get some of his hardware out. Additional recommendations and suggestions are forthcoming. Labs x-rays a medications are reviewed. White count is 8.6, hemoglobin 11.8, 35.8 is a hematocrit. PT INR are normal. Sodium 135 potassium 4.6 chloride is 108 CO2 21 BUN and creatinine 14 and 0.7. Critical-care time 34 minutes Plan dated 05/22/2018 The patient continues to show improvement. He is doing reasonably well on his incentive spirometer. Still encouraged him to deep breathe cough and clear secretions. He still on supplemental oxygen at 2 L. Hemodynamics are stable. He receiving lactated Ringer's IV at 30 mL an hour. Labs are reviewed. X-rays reviewed. Continues to show slight improvement. Medications are reviewed. I will continue to follow the patient along and make sure he shows continued and ongoing improvement until eventual discharge. Critical care time 31 minutes Plan dated 05/23/2018 The patient appears a bit sleepy today. He does not appear to be having any respiratory distress. The patient is not having any pain other than for surgical site pain/discomfort. He is getting about 1500 today on his incentive spirometer. The patient's oxygen has been weaned off. His IV is just saline at KVO. Chest x-ray show some bibasilar atelectasis and some mild/small pleural effusions. White count 8.8, hemoglobin 10.2 hematocrit 29.5 and platelet count 162,000. Sodium 138 potassium 4.7 chloride 109 CO2 21 BUN and creatinine were 15 and 0.6. The patient has not yet been seen by cardiothoracic surgery. Possible discharge out of the ICU today pending their evaluation. Critical care time 32 minutes Time with Patient: Greater than 30
--- NOTE | 2018-05-23 10:30 | PN ---
PROGRESS NOTE Mr. Dean is a 58-year-old male status post coronary artery bypass grafting. He is doing well this morning. His breathing has been stable. He denies any symptoms of chest pain. He denies any nausea. He feels stronger. He continues to be on aspirin once a day, Lipitor 40 mg daily, Plavix 75 mg daily, metoprolol tartrate 25 mg twice a day. PHYSICAL EXAMINATION: Blood pressure 129/70 with a heart rate in the 70s, lungs with few crackles at the bases. HEART: Regular rate and rhythm S1, S2. No S3. No rub. ABDOMEN: Soft and nontender. EXTREMITIES: No edema. LAB DATA: BUN and creatinine 15 and 0.6. Hemoglobin is 10.2. IMPRESSION: 1. Status post coronary artery bypass grafting. 2. Hyperlipidemia. 3. Prior history of smoking. RECOMMENDATION: We will continue present therapy. Increase his level of activity. Continue incentive spirometry. Transfer to telemetry floor. NOAH / OWENN: [id number] /
[2018-05-23 12:04] LABS: Glucose,Whole Blood 109 mg/dL (75-99)
[2018-05-23] MEDS: FOLIC ACID 1 MG TAB PO SCH (12:23)
[2018-05-23] MEDS: THIAMINE 100 MG TAB PO SCH (12:23)
[2018-05-23] MEDS: MULTIVITAMINS, THERA 1 EACH TAB PO SCH (12:23)
[2018-05-23 17:26] LABS: Glucose,Whole Blood 118 mg/dL (75-99)
[2018-05-23 21:19] LABS: Glucose,Whole Blood 161 mg/dL (75-99)
[2018-05-23] MEDS: SENNOSIDES-DOCUSATE SODIUM 1 EACH TAB PO SCH (21:32)
[2018-05-24 01:40] LABS: Glucose,Whole Blood 113 mg/dL (75-99)
[2018-05-24] MEDS: KETOROLAC 30 MG/ML 1 ML VIAL IVP SCH ×3 (02:57→12:48)
[2018-05-24 04:09] LABS: HCT 29.9 % (39.0-53.0); HGB 9.8 gm/dL (13.0-17.5); MCH 30.4 pg (25.0-35.0); MCHC 32.7 g/dL (31.0-37.0); MCV 92.7 fL (80.0-100.0); Mean Platelet Volume 7.3; Platelet Count 231 k/uL (150-450); RBC 3.22 m/uL (4.30-5.90); RDW 13.5 % (11.5-15.5); WBC 7.5 k/uL (3.8-10.6)
[2018-05-24 04:14] LABS: ALT 33 U/L (21-72); AST 29 U/L (17-59); Albumin 3.1 g/dL (3.5-5.0); Alkaline Phosphatase 62 U/L (38-126); Anion Gap 7 mmol/L; Blood Urea Nitrogen 15 mg/dL (9-20); Calcium 8.6 mg/dL (8.4-10.2); Carbon Dioxide 23 mmol/L (22-30); Chloride 110 mmol/L (98-107); Glucose 99 mg/dL (74-99); Potassium 4.2 mmol/L (3.5-5.1); Sodium 140 mmol/L (137-145); Total Bilirubin 0.3 mg/dL (0.2-1.3); Total Protein 5.3 g/dL (6.3-8.2)
[2018-05-24 06:24] LABS: Glucose,Whole Blood 103 mg/dL (75-99)
[2018-05-24] MEDS: IPRATROPIUM-ALBUTEROL 3 ML NEB INHALATION SCH ×2 (07:24→12:12)
[2018-05-24] MEDS: INSULIN ASPART 100 UNIT/ML 1 ML 10 ML VIAL SQ SCH ×2 (07:55→12:46)
[2018-05-24] MEDS: PANTOPRAZOLE 40 MG TABLET PO SCH (07:56)
[2018-05-24] MEDS: HEPARIN SODIUM,PORCINE 5,000 UNIT/ML 1 ML VIAL SQ SCH (07:56)
[2018-05-24] MEDS: ATORVASTATIN 40 MG TAB PO SCH (08:01)
[2018-05-24] MEDS: CLOPIDOGREL 75 MG TAB PO SCH (08:01)
[2018-05-24] MEDS: ASPIRIN 325 MG TAB PO SCH (08:01)
[2018-05-24] MEDS: TAMSULOSIN 0.4 MG CAP.ER.24H PO SCH (08:04)
[2018-05-24] MEDS: METOPROLOL TARTRATE 25 MG TAB PO SCH (08:04)
--- NOTE | 2018-05-24 08:39 | XR ---
EXAMINATION TYPE: XR chest 2V DATE OF EXAM: 05/24/2018 COMPARISON: 05/22/2018 TECHNIQUE: PA and lateral views submitted. HISTORY: Post cardiac surgery FINDINGS: Bilateral consolidation and pleural effusion stable. Calcified granuloma noted. Chest tube, mediastin al drain, and vascular sheath has been removed with no sizable pneumothorax. Postsurgical changes are seen in the heart size is unchanged. Suggestion of coronary artery stenting. Hypertrophic changes of the spine noted. Calcified lymph nodes in the right paratracheal region sugg huong. IMPRESSION: 1. Postsurgical changes with stable bilateral consolidation and pleural effusion. 2. Chronic granulomatous disease.
--- NOTE | 2018-05-24 09:17 | P.PN ---
Subjective Progress Note Date: 05/24/18 Principal diagnosis: coronary artery disease, status post three-vessel bypass grafting, postop day 4 Progress note dated 05/21/2018 57-year-old male status post three-vessel bypass grafting. He is postop day # 1. He has a history of CAD with previous myocardial infarction with stent placement, hypertension, hyperlipidemia, tobacco dependence, remote history of pneumonia, history of vein stripping and daily alcohol use. On presentation, he presented with chest pain and ruled in for a non-ST segment elevation myocardial infarction. The patient was extubated yesterday within the 6 hour time limited. He is doing well. He is on oxygen at 2 L by nasal cannula. He is getting a saline IV at 30 mL an hour. He is doing about 1500 mL on his incentive spirometer. Actually doing very well today. Chest x-ray shows smaller lung volumes. There may be some basilar atelectasis and small effusions. Minimal cephalization of the upper lobe vessels. Progress note dated 05/22/2018 58 -year-old male, postop day #2, status post three-vessel bypass grafting. The patient has a history of coronary artery disease, previous myocardial infarction with stent, hypertension, hyperlipidemia, chronic tobacco dependence , remote history of pneumonia, history of vein stripping and daily alcohol use. The patient did rule in for a non-ST segment elevation myocardial infarction. Currently, the patient is receiving O2 at 2 L. Also receiving an IV of lactated Ringer's at 30 mL an hour. The patient is getting 1250 mL on his incentive spirometer. Chest x-ray showing typical postoperative changes. White count is 8.5, hemoglobin 10.6, hematocrit 32.6 and platelet count normal. Sodium and potassium are normal. Chloride 108, CO2 24, anion gap 6, and BUN and creatinine were 13 and 0.70, respectively. Progress note dated 05/23/2018 58-year-old male who is postop day #3 status post three-vessel bypass grafting. The patient does have a history of coronary artery disease, which necessitated the bypass, previous myocardial infarction with stent, hypertension , hyperlipidemia, chronic tobacco dependence, history of pneumonia, previous vein stripping and daily alcohol use. The patient did rule in for a non-ST segment elevation myocardial infarction. Currently, he has been transitioned to room air. His IV is saline at KVO. He is getting about 1250 on his incentive spirometer. He does have surgical site discomfort/pain. His chest x- ray shows some mild cardiomegaly small bilateral effusions and some bibasilar atelectasis. His white count is 8.8 hemoglobin 10.2 hematocrit 29.5 and platelet count 162,000. Sodium potassium normal. Chloride 109 CO2 21. BUN and creatinine were 15 and 0.6. He denies any chest pain or chest discomfort. He is not coughing producing any phlegm. No nausea vomiting diarrhea or genitourinary complaints 05/24/2018 patient seen again in follow-up in the intensive care unit. Patient is awake and alert, on room air, on no drips. He is ambulating, tolerating it well, room air pulse ox is 97%, hemodynamically stable, sinus rhythm on the monitor, he is afebrile. Lung sounds positive for a few bibasilar crackles. Today's chest x-ray has been reviewed. It shows postsurgical changes with stable bilateral consolidation and pleural effusions, chronic granulomatous disease. His legs have been reviewed, WBC 7.5, hemoglobin 9.8, is 110, the rest of electrolytes and renal profile are within normal limits. No acute events overnight, patient is compliant with his incentive spirometer. Dissipate discharge home today. Objective - Vital Signs Vital signs: Vital Signs Temp 97.8 F 05/24/18 08:00 Pulse 75 05/24/18 08:30 Resp 21 05/24/18 08:30 BP 132/74 05/24/18 08:30 Pulse Ox 97 05/24/18 08:30 Intake & Output 05/23/18 05/24/18 05/24/18 18:59 06:59 18:59 Intake Total 240 650 Output Total 330 700 Balance -90 -700 650 Weight 88.9 kg 86.8 kg Intake: Oral 650 Tube Feeding 240 Output: Chest Tube Drainage 30 Left Pleural 30 Urine 300 700 Other: Voiding Method Urinal Urinal Urinal # Voids 1 1 # Bowel Movements 1 ABP, PAP, CO, CI - Last Documented Arterial Blood Pressure 122/57 Pulmonary Artery Pressure 39/20 Cardiac Output 7.3 Cardiac Index 3.7 - Exam No acute distress, oriented 3. Not requiring any supplemental oxygen at this time. HEENT examination is grossly unremarkable. Mucous membranes are moist. No oral lesions. Neck supple. Full range of motion. No adenopathy thyromegaly or neck vein distention. Cardiovascular examination reveals regular rhythm rate. S1-S2 normal. No S3 or S4. No discernible murmur noted. Lungs reveal a few crackles at the bases. Breath sounds equal bilaterally. No wheezes noted. Breath sounds. They are better than they were yesterday. He is more clear. Abdomen soft bowel sounds are heard. No masses or tenderness. Extremities are intact. No cyanosis clubbing or edema. Skin is without rash or lesion. Neurologic examination is brief but nonfocal - Labs CBC & Chem 7: 05/24/18 03:39 05/24/18 03:39 Labs: Abnormal Lab Results - Last 24 Hours (Table) 05/23/18 05/23/18 05/23/18 Range/Units 12:03 17:24 21:17 RBC (4.30-5.90) m/uL Hgb (13.0-17.5) gm/dL Hct (39.0-53.0) % Chloride (98-107) mmol/L Creatinine (0.66-1.25) mg/dL POC Glucose (mg/dL) 109 H 118 H 161 H (75-99) mg/dL Total Protein (6.3-8.2) g/dL Albumin (3.5-5.0) g/dL 05/24/18 05/24/18 05/24/18 Range/Units 01:38 03:39 03:39 RBC 3.22 L (4.30-5.90) m/uL Hgb 9.8 L (13.0-17.5) gm/dL Hct 29.9 L (39.0-53.0) % Chloride 110 H (98-107) mmol/L Creatinine 0.60 L (0.66-1.25) mg/dL POC Glucose (mg/dL) 113 H (75-99) mg/dL Total Protein 5.3 L (6.3-8.2) g/dL Albumin 3.1 L (3.5-5.0) g/dL 05/24/18 Range/Units 06:23 RBC (4.30-5.90) m/uL Hgb (13.0-17.5) gm/dL Hct (39.0-53.0) % Chloride (98-107) mmol/L Creatinine (0.66-1.25) mg/dL POC Glucose (mg/dL) 103 H (75-99) mg/dL Total Protein (6.3-8.2) g/dL Albumin (3.5-5.0) g/dL Assessment and Plan Plan: Assessment: Postop day #4, status post three-vessel bypass grafting, done off pump. Postoperative ventilator management, resolved. History of CAD with previous myocardial infarction Previous stent placement History of hypertension History of hyperlipidemia History of chronic tobacco dependence Remote history of pneumonia Previous history of vein stripping History of daily alcohol use Plan: Patient is stable, no acute events overnight, lung sounds are stable, he is tolerating ambulation. Sinus rhythm on the monitor, he is on room air. Anticipate discharge home today, follow up with Dr. Garcia in the office in 7-10 days. I performed a history & physical examination of the patient and discussed their management with my nurse practitioner, Paige Pittman. I reviewed the nurse practitioner's note and agree with the documented findings and plan of care. Lung sounds are positive for a few bibasilar crackles. The findings and the impression was discussed with the patient. I attest to the documentation by the nurse practitioner. Time with Patient: Less than 30
--- NOTE | 2018-05-24 09:23 | P.PN ---
Subjective Progress Note Date: 05/24/18 Principal diagnosis: Coronary artery disease. Previous medical history of myocardial infarction with stent placement, hypertension, hyperlipidemia, current tobacco dependence, mild COPD with preoperative FEV1 69% of predicted, remote history of pneumonia, history of vein stripping, daily EtOH use. POD #4 off-pump coronary artery bypass grafting 3 with CORTES to the LAD and saphenous vein grafts to the posterior descending coronary artery and diagonal coronary artery with endovascular harvest of the left greater saphenous vein. Intraoperative transesophageal echocardiogram completed by anesthesiology. The patient is currently sitting up in the chair in no acute distress. Denies pain, shortness of breath. No new concerns. Patient would like to go home. Objective - Vital Signs Vital signs: Vital Signs Temp 97.8 F 05/24/18 08:00 Pulse 75 05/24/18 08:30 Resp 21 05/24/18 08:30 BP 132/74 05/24/18 08:30 Pulse Ox 97 05/24/18 08:30 Intake & Output 05/23/18 05/24/18 05/24/18 18:59 06:59 18:59 Intake Total 240 650 Output Total 330 700 Balance -90 -700 650 Weight 88.9 kg 86.8 kg Intake: Oral 650 Tube Feeding 240 Output: Chest Tube Drainage 30 Left Pleural 30 Urine 300 700 Other: Voiding Method Urinal Urinal Urinal # Voids 1 1 # Bowel Movements 1 ABP, PAP, CO, CI - Last Documented Arterial Blood Pressure 122/57 Pulmonary Artery Pressure 39/20 Cardiac Output 7.3 Cardiac Index 3.7 - Constitutional General appearance: Present: cooperative, no acute distress - Respiratory Details: Lungs sounds clear bilaterally. Respirations even, nonlabored. Currently on room air with oxygen saturation 93%. Strong effective cough. - Cardiovascular Details: S1, S2 present. Regular rate and rhythm, sinus rhythm on telemetry. Sternum stable. Palpable peripheral pulses bilaterally. No edema present. No calf pain or tenderness noted. Heart hugger in place with patient demonstrating appropriate use. Antiembolism stockings, SCDs present. - Gastrointestinal Gastrointestinal Comment(s): Abdomen soft, nontender, nondistended. Active bowel sounds 4 quadrants. Tolerating diet. Positive bowel movement. - Genitourinary Genitourinary Comment(s): Patient continues to void clear, yellow urine. - Integumentary Integumentary Comment(s): Skin is warm and dry with evidence of good perfusion. Anterior chest incision well approximated, dry intact dressing. Left lower extremity EVH site well approximated. - Neurologic Neurologic: Present: CNII-XII intact - Musculoskeletal Musculoskeletal: Present: gait normal, strength equal bilaterally - Psychiatric Psychiatric: Present: A&O x's 3, appropriate affect, intact judgment & insight - Allied health notes Allied health notes reviewed: nursing - Labs CBC & Chem 7: 05/24/18 03:39 05/24/18 03:39 Labs: Abnormal Lab Results - Last 24 Hours (Table) 05/23/18 05/23/18 05/23/18 Range/Units 12:03 17:24 21:17 RBC (4.30-5.90) m/uL Hgb (13.0-17.5) gm/dL Hct (39.0-53.0) % Chloride (98-107) mmol/L Creatinine (0.66-1.25) mg/dL POC Glucose (mg/dL) 109 H 118 H 161 H (75-99) mg/dL Total Protein (6.3-8.2) g/dL Albumin (3.5-5.0) g/dL 05/24/18 05/24/18 05/24/18 Range/Units 01:38 03:39 03:39 RBC 3.22 L (4.30-5.90) m/uL Hgb 9.8 L (13.0-17.5) gm/dL Hct 29.9 L (39.0-53.0) % Chloride 110 H (98-107) mmol/L Creatinine 0.60 L (0.66-1.25) mg/dL POC Glucose (mg/dL) 113 H (75-99) mg/dL Total Protein 5.3 L (6.3-8.2) g/dL Albumin 3.1 L (3.5-5.0) g/dL 05/24/18 Range/Units 06:23 RBC (4.30-5.90) m/uL Hgb (13.0-17.5) gm/dL Hct (39.0-53.0) % Chloride (98-107) mmol/L Creatinine (0.66-1.25) mg/dL POC Glucose (mg/dL) 103 H (75-99) mg/dL Total Protein (6.3-8.2) g/dL Albumin (3.5-5.0) g/dL - Imaging and Cardiology Chest x-ray: report reviewed, image reviewed Assessment and Plan (1) Daily consumption of alcohol Current Visit: Yes Status: Chronic Code(s): BPW9997 - SNOMED Code(s): 928291121 (2) Essential hypertension Current Visit: Yes Status: Chronic Code(s): I10 - ESSENTIAL (PRIMARY) HYPERTENSION SNOMED Code(s): 12154985 (3) Hyperlipidemia Current Visit: Yes Status: Chronic Code(s): E78.5 - HYPERLIPIDEMIA, UNSPECIFIED SNOMED Code(s): 16950791 (4) Presence of stent in coronary artery in patient with coronary artery disease Current Visit: Yes Status: Chronic Code(s): I25.10 - ATHSCL HEART DISEASE OF [place] CORONARY ARTERY W/O ANG PCTRS; Z95.5 - PRESENCE OF CORONARY ANGIOPLASTY IMPLANT AND GRAFT SNOMED Code(s): 910784152 (5) Tobacco dependence Current Visit: Yes Status: Chronic Code(s): F17.200 - NICOTINE DEPENDENCE, UNSPECIFIED, UNCOMPLICATED SNOMED Code(s): 16522746 (6) History of myocardial infarction Current Visit: No Status: Resolved Code(s): I25.2 - OLD MYOCARDIAL INFARCTION SNOMED Code(s): 555946035 (7) CAD (coronary artery disease) Current Visit: Yes Status: Chronic Code(s): I25.10 - ATHSCL HEART DISEASE OF [place] CORONARY ARTERY W/O ANG PCTRS SNOMED Code(s): 27551606 Plan: 1. Continue aspirin, statin, Plavix, heparin, beta sagrario. Will increase beta sagrario therapy as tolerated. 2. Encourage incentive spirometry use 10 times every hour. 3. Encourage smoking cessation. 4. Increase activity, ambulate as tolerated. PT/OT/cardiac rehab following. 5. Insulin management per primary care service. 6. Pain management with ordered medication regimen. 7. Will monitor daily labs and x-rays. 8. Bronchodilators per pulmonology. 9. GI/DVT prophylaxis. 10. Will discharge to home with home care later today. Time with Patient: Greater than 30
--- NOTE | 2018-05-24 10:22 | PN ---
PROGRESS NOTE Mr. Dean is a 58-year-old male who underwent coronary artery bypass grafting. He is doing well this morning ambulating without difficulty. Denying any symptoms of chest pain. Denies any dizziness or palpitation. Denies any nausea. He continued to be in sinus mechanism. He may be discharged home today. He continues to be on aspirin once a day, Lipitor 40 mg daily, Plavix 75 mg daily, metoprolol tartrate 25 mg twice a day. PHYSICAL EXAMINATION: Blood pressure 132/70 with the heart rate in the 70s. LUNGS: Clear. HEART: Regular rate and rhythm. S1, S2. No S3. No rub. ABDOMEN: Soft, nontender. EXTREMITIES: +1 edema on the right side. LAB DATA: Lab data revealed BUN and creatinine 15 and 0.6, potassium 4.2, hemoglobin 9.8. IMPRESSION: 1. Status post coronary artery bypass grafting, stable. 2. Hyperlipidemia. 3. Prior history of smoking. RECOMMENDATION: We will continue present therapy and hopefully discharge home soon. MMODL / IJN: [id number] /
[2018-05-24 12:23] VITALS: PULSE 72; RESP 16
[2018-05-24 12:40] LABS: Glucose,Whole Blood 84 mg/dL (75-99)
[2018-05-24] MEDS: THIAMINE 100 MG TAB PO SCH (12:44)
[2018-05-24] MEDS: MULTIVITAMINS, THERA 1 EACH TAB PO SCH ×2 (12:44→13:40)
[2018-05-24] MEDS: FOLIC ACID 1 MG TAB PO SCH (12:44)
[2018-05-24 12:53] VITALS: BP 153/81; TEMP 98.4
--- NOTE | 2018-05-24 14:51 | CDI ---
Last Revision, September 2017 Documentation Clarification Form Date: 05/24/2018 12:00:00 AM From: Carmen Garber RN, CCDS Admit Date: 05/20/2018 5:21:00 AM Patient Name: Samuel Dean Visit Number: [id number] Discharge Date: ATTENTION: The Clinical Documentation Specialists (CDI) and [facility] Coding Staff appreciate your assistance in clarifying documentation. Please respond to the clarification below the line at the bottom and electronically sign. The CDI & [facility] Coding staff will review the response and follow-up if needed. Please note: Queries are made part of the Legal Health Record. If you have any questions, please contact the author of this message via ITS. Dr. Jenae Ngo A diagnosis of anemia lacks specificity to accurately reflect your patients severity of condition and clarification is needed. History/Risk Factors: Coronary artery disease, Hypertension, Alcohol dependence , Smoker, Clinical indicators: Patient has a history of severe coronary artery disease status post CABG X3 secondary to NSTEMI. Postoperative anemia secondary to postoperative blood loss is documented in your ongoing progress notes. Pre procedure 05/12/18 : HGB 13.0, HCT 38.0 Post procedure 05/20/18 HGB 11.2, HCT 33.0 05/24/18 HGB 9.8, HCT 29.9 Treatment: monitoring labs Multivitamins PO In order to capture the severity of condition, please further clarify if postoperative blood loss anemia is: Acute blood loss anemia (specify if expected or unexpected) Unable to determine Other, please specify Please continue to document in your progress notes and discharge summary in order to capture severity of illness and risk of mortality. Include clinical findings that support your diagnosis. expected MTDD
--- NOTE | 2018-05-24 14:56 | P.DS ---
Providers Date of admission: 05/20/18 05:21 Expected date of discharge: 05/24/18 Attending physician: Lan Galarza Consults: 05/20/18 12:23 Consult Physician Routine Consulting Provider: Manuel Gacria Consult Reason/Comments: Stranner Consult: post cardiac surgery Do you want consulting provider notified?: Yes Placement Type Exists?: Yes Consult Physician Routine Consulting Provider: Pascale Randolph Consult Reason/Comments: medical management Do you want consulting provider notified?: Yes Placement Type Exists?: Yes Consult Physician Routine Consulting Provider: Abbie Simpson Consult Reason/Comments: 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 Consult: post cardiac surgery Do you want consulting provider notified?: Yes Placement Type Exists?: Yes Primary care physician: Manuel Trammell - Discharge Diagnosis(es) (1) Daily consumption of alcohol Current Visit: Yes Status: Chronic (2) Essential hypertension Current Visit: Yes Status: Chronic (3) Hyperlipidemia Current Visit: Yes Status: Chronic (4) Presence of stent in coronary artery in patient with coronary artery disease Current Visit: Yes Status: Chronic (5) Tobacco dependence Current Visit: Yes Status: Chronic (6) History of myocardial infarction Current Visit: No Status: Resolved (7) CAD (coronary artery disease) Current Visit: Yes Status: Chronic Hospital Course: FINAL DIAGNOSIS: 1. Coronary artery disease 2. History of myocardial infarction with stent placement 3. Hypertension 4. Hyperlipidemia 5. Current tobacco dependence 6. Mild COPD with preoperative FEV1 69% of predicted 7. Remote history of pneumonia 8. History of vein stripping 9. Daily EtOH use PRINCIPAL PROCEDURE: 1. Off-pump coronary artery bypass grafting 3 with CORTES to the LAD and saphenous vein grafts to the posterior descending coronary artery and diagonal coronary artery 2. Endovascular harvesting of the left greater saphenous vein 3. Intraoperative transesophageal echocardiogram by anesthesiology HISTORY OF PRESENT ILLNESS: This is a 57-year-old gentleman who previously did not follow with any primary care physician on a regular basis, however he had a recent preoperative visit with Dr. Manuel Trammell, and he does follow with Dr. VC Simpson for cardiology. He was transferred to [facility] emergency room from an outside hospital on 05/10/2018 with complaints of intermittent, progressive worsening chest pain with radiation to his neck and left upper extremity. He stated that his pain was similar to his previous myocardial infarction. He was ruled in for non-ST elevation myocardial infarction. His pain resolved with initiation of IV heparin and nitroglycerin. He was taken to the [facility] on May 12 for heart catheterization which demonstrated moderate to severe disease involving the mid and distal right coronary artery and moderate to severe disease involving the proximal left anterior descending artery with severe in-stent restenosis of the mid LAD. While hospitalized he had an echocardiogram completed demonstrating normal systolic function with an ejection fraction 55-60% without significant valvular pathology. The patient was referred to Dr. Galarza from cardiothoracic surgery. He was recommended to undergo coronary artery bypass graft surgery. All risks and benefits were explained in detail to the patient and his family, all questions were answered, and consent was obtained to proceed with surgery. The patient was discharged to home to allow for optimizing medical therapy to be brought in as an outpatient. HOSPITAL COURSE: The patient was brought to the hospital on 05/20/2018, taken to the preoperative area, prepared in the usual fashion, and subsequently taken to the operating room where Dr. Galazra performed an off-pump coronary artery bypass grafting 3 with CORTES to the LAD and saphenous vein grafts to the posterior descending coronary artery and diagonal coronary artery and endovascular harvesting of the left greater saphenous vein, as well as intraoperative transesophageal echocardiogram by anesthesiology. Upon completion of surgery the patient was transferred to the cardiovascular intensive care unit where he was recovered, monitored hemodynamically, and where he progressed to cardiac rehabilitation phase 1. He was extubated, all lines, tubes, and drips were discontinued when appropriate, and orders were placed for transfer to [address] [place] [address] care for further monitoring and rehabilitation, however there was a bed shortage and the patient remained an overflow patient in the intensive care unit until discharge. His oxygen was titrated down, he continued to work with physical and occupational therapy, he was tolerating oral diet, his pain was controlled, and he was ready to be discharged to home with home care on postoperative day #4. He received written and verbal instruction regarding his medications, activity restrictions, signs and symptoms requiring physician notification, and follow-up appointments. COMPLICATIONS: The patient experienced no postoperative complications. Plan - Discharge Summary Discharge Rx Participant: Yes New Discharge Prescriptions: New Atorvastatin [Lipitor] 40 mg PO DAILY #30 tab HYDROcodone/APAP 5-325MG [Anthony 5-325] 1 each PO Q6HR PRN #14 tab PRN Reason: Moderate Pain Metoprolol Tartrate [Lopressor] 25 mg PO BID #60 tab Pantoprazole [Protonix] 40 mg PO AC-BRKFST #30 tablet.dr Continue Tamsulosin [Flomax] 0.4 mg PO DAILY Aspirin 325 mg PO DAILY #60 tab Calcium Polycarbophil [Fibercon] 625 mg PO DAILY Clopidogrel [Plavix] 75 mg PO DAILY Multivitamin [Men's Multi-Vitamin] 1 tab PO DAILY Cholecalciferol [Vitamin D3] 400 unit PO DAILY Discontinued Nitroglycerin Sl Tabs [Nitrostat] 0.4 mg SUBLINGUAL Q5M PRN #20 tab PRN Reason: Chest Pain Atenolol [Tenormin] 25 mg PO BID Lisinopril [Zestril] 2.5 mg PO DAILY Mupirocin 2% Oint [Bactroban 2% Oint] 1 applic NASAL BID #1 tube Atorvastatin [Lipitor] 20 mg PO HS Discharge Medication List Tamsulosin [Flomax] 0.4 mg PO DAILY 05/10/18 [History] Aspirin 325 mg PO DAILY #60 tab 05/12/18 [Rx] Calcium Polycarbophil [Fibercon] 625 mg PO DAILY 05/17/18 [History] Clopidogrel [Plavix] 75 mg PO DAILY 05/17/18 [History] Multivitamin [Men's Multi-Vitamin] 1 tab PO DAILY 05/17/18 [History] Cholecalciferol [Vitamin D3] 400 unit PO DAILY 05/20/18 [History] Atorvastatin [Lipitor] 40 mg PO DAILY #30 tab 05/24/18 [Rx] HYDROcodone/APAP 5-325MG [Anthony 5-325] 1 each PO Q6HR PRN #14 tab 05/24/18 [Rx] Metoprolol Tartrate [Lopressor] 25 mg PO BID #60 tab 05/24/18 [Rx] Pantoprazole [Protonix] 40 mg PO AC-BRKFST #30 tablet. 05/24/18 [Rx] Follow up Appointment(s)/Referral(s): Lan Galarza MD [STAFF PHYSICIAN] - 06/17/18 12:15 pm Javier Kamara NPC [Nurse Practitioner] - 05/28/18 10:30 am Manuel Garcia DO [Doctor of Osteopathic Medicine] - 06/02/18 10:00 am [facility], [NON-STAFF] - 1-2 Days Manuel Trammell MD [Primary Care Provider] - 06/08/18 2:00 pm Abbie Simpson MD [STAFF PHYSICIAN] - 06/21/18 2:30 pm (Please see patient in [place] office ) Ambulatory/Diagnostic Orders: Complete Blood Count w/diff [LAB.AMB] Time Frame: 3 Days, Location: None Selected Comprehensive Metabolic Panel [LAB.AMB] Time Frame: 3 Days, Location: None Selected Patient Instructions/Handouts: How to Stop Smoking (DC), Heart Healthy Diet (DC ), Surgical Site Infections (DC), Postoperative Bleeding (DC), Sternal Precautions (GEN), Safe Use of Antiplatelet Medication (DC), Coronary Artery Bypass Graft (DC) Activity/Diet/Wound Care/Special Instructions: DISCHARGE INSTRUCTIONS: 1. No driving for 4 weeks, or until physician gives their ok. 2. The patient should sleep in their own bed, no medical bed needed. 3. Stairs are not an issue. If the bedroom is upstairs, it is advised that the patient go up at night and down in the morning for the first week. Go slowly, using handrail and take 1 step at a time. 4. LINO hose are to be worn for 30 days or until physician discontinues. 5. Heart hugger is to be worn 100% of the time until physician discontinues.( except when showering) 6. No lifting, pushing, or pulling more than 10 pounds for 12 weeks. The physician will advise of any restriction changes. 7. The patient is expected to continue the prescribed walking program. 8. Continue pain control per as needed orders. 9. Continue with incentive spirometry and splinting/heart hugger until otherwise directed by the physician. 10. Must shower daily using liquid antibacterial soap and a separate white washcloth for each individual incision. 11. Routine sternal incision care. No powders, lotions, ointments on incisions. 12. Please call surgeon/PRESS SECRETARY for temp greater than 101 F or purulent drainage from incisions. 13. Narcotic medications were discussed with the patient, including the potential for misuse, addiction, and abuse. Opiod Start Talking form was reviewed with the patient. 14. All prescriptions given by surgeon for 30 days. Refills need to be filled through refrigeration supervisor/primary care physician. 15. A Red armband has been placed on the patient. It should be worn for 30 days post surgery and will be removed by the cardiac surgeons. If an ER visit is necessary, please make sure the number on the Red armband is called. HOME HEALTH SERVICES TO PROVIDE: RN SKILLED HOME CARE SERVICES FOR POST-OP SURGICAL PATIENTS WITH THE FOLLOWING: Coronary Artery Bypass Surgery (CABG), Mitral Valve Replacement/ Repair ( MVR), Aortic Valve Replacement/Repair (AVR) RN TO CONTINUE EDUCATION FROM ``ROAD TO A HEALTH HEART PATIENT EDUCATION MANUAL (GIVEN TO PATIENT IN THE HOSPITAL) MEDICATION RECONCILIATION WITH EDUCATION NEEDED ON FIRST HOME VISIT EMPHASIZE IMPORTANCE OF WEARING BREAST SUPPORT/HEART HUGGER ENCOURAGE USE OF INCENTIVE SPIROMETER 10 X EVERY HOUR WHILE AWAKE ENCOURAGE UTILIZATION OF LOWER EXTREMITY COMPRESSION STOCKINGS/LINO HOSE and ELEVATE LEGS ABOVE LEVEL OF HEART WHILE AT REST. ENCOURAGE AMBULATION 3-5x/day INCREASING TOLERATES, WHILE AVOID EXTREMES IN TEMPERATURE FREQUENCY: RN TO OPEN THE PATIENT WITHIN 24 HOURS OF DISCHARGE FROM THE HOSPITAL WITH TELEHEALTH INSTALLED AT [facility] [place], RN TO VISIT 2-3 X A WEEK FOR 4 WEEKS ESTABLISHED BY PATIENT NEEDS. LABORATORY: CBC, CMP TO BE DRAWN ON THE THIRD DAY HOME, , 05/27/2018 (RAN STAT) FAX RESULTS TO [phone]. TELEHEALTH PARAMETERS: WEIGHT: NOTIFY MD OF WEIGHT GAIN OF 2 LBS IN 24 HOURS OR 5 LBS IN ONE WEEK HR: NOTIFY MD OF HR <55 BPM OR HR>100 BPM BP: NOTIFY MD IF BP <90/55 OR BP>140/100 O2 SAT: NOTIFY MD IF PO2<93% ON ROOM AIR SEND TELEHEALTH REPORT TO SIDING MECHANIC AND CARDIOVASCULAR SURGEON THE FIRST WEEK OF CARE AND THEN BI-WEEKLY. PLEASE ADDITIONALLY COMMUNICATE ANY ABNORMALS AND NEW FINDINGS TO THE SURGEONS OFFICE. Discharge Disposition: HOME WITH HOME HEALTH SERVICES
== END 2018-05-24 15:10 | disposition home health service (06) | DRG 235 ==
LOC: 2ORMAIN 05:21 → 6ICU 12:01
PROVIDERS: ADMIT Thoracic Surgery (Cardiothoracic Vascular Surgery); ATTEND Thoracic Surgery (Cardiothoracic Vascular Surgery)
PROC: 021109W Bypass Coronary Artery, Two Arteries from Aorta with Autologous Venous Tissue, Open Approach (ICD-10-PCS; 2018-05-20)
PROC: B246ZZ4 Ultrasonography of Right and Left Heart, Transesophageal (ICD-10-PCS; 2018-05-20)
PROC: 30233N0 Transfusion of Autologous Red Blood Cells into Peripheral Vein, Percutaneous Approach (ICD-10-PCS; 2018-05-20)
PROC: 02100Z9 Bypass Coronary Artery, One Artery from Left Internal Mammary, Open Approach (ICD-10-PCS; principal; 2018-05-20 09:00)
PROC: 06BQ3ZZ Excision of Left Saphenous Vein, Percutaneous Approach (ICD-10-PCS; 2018-05-20 09:00)
DX: T82.855A Stenosis of coronary artery stent, initial encounter (principal); I21.4 Non-ST elevation (NSTEMI) myocardial infarction; J90 Pleural effusion, not elsewhere classified; J98.11 Atelectasis; E87.2 Acidosis; I25.10 Atherosclerotic heart disease of native coronary artery without angina pectoris; F17.210 Nicotine dependence, cigarettes, uncomplicated; Z95.5 Presence of coronary angioplasty implant and graft; E78.5 Hyperlipidemia, unspecified; F17.200 Nicotine dependence, unspecified, uncomplicated; I11.9 Hypertensive heart disease without heart failure; I25.2 Old myocardial infarction; J44.9 Chronic obstructive pulmonary disease, unspecified; N40.0 Benign prostatic hyperplasia without lower urinary tract symptoms; Y83.1 Surgical operation with implant of artificial internal device as the cause of abnormal reaction of the patient, or of later complication, without mention of misadventure at the time of the procedure; Z79.82 Long term (current) use of aspirin; Z79.899 Other long term (current) drug therapy; Z82.49 Family history of ischemic heart disease and other diseases of the circulatory system; Z87.01 Personal history of pneumonia (recurrent); R91.1 Solitary pulmonary nodule; Z71.6 Tobacco abuse counseling; M19.90 Unspecified osteoarthritis, unspecified site; Z80.8 Family history of malignant neoplasm of other organs or systems
CPT/HCPCS: 71045; 71046; 80053; 80074; 82330; 82805; 83735; 85025; 85027; 85520; 85610; 85730; 86850; 86891; 86900; 86901; 86920; 94002; 94640

== ENCOUNTER → 2018-05-27 | Outpatient (CLI) | payer BC ==
[2018-05-27 10:57] LABS: Basophils # (A) 0.1 k/uL (0-0.2); Basophils % (A) 1 %; Eosinophils # (A) 0.5 k/uL (0-0.7); Eosinophils % (A) 5 %; HCT 36.2 % (39.0-53.0); HGB 11.8 gm/dL (13.0-17.5); Lymphocytes # (A) 1.6 k/uL (1.0-4.8); Lymphocytes % (A) 16 %; MCH 30.7 pg (25.0-35.0); MCHC 32.7 g/dL (31.0-37.0); MCV 93.9 fL (80.0-100.0); Mean Platelet Volume 6.7; Monocytes # (A) 0.7 k/uL (0-1.0); Monocytes % (A) 6 %; Neutrophils % (A) 69 %; Platelet Count 461 k/uL (150-450); RBC 3.86 m/uL (4.30-5.90); RDW 13.8 % (11.5-15.5); WBC 10.2 k/uL (3.8-10.6)
[2018-05-27 11:12] LABS: ALT 55 U/L (21-72); AST 44 U/L (17-59); Albumin 4.1 g/dL (3.5-5.0); Alkaline Phosphatase 81 U/L (38-126); Anion Gap 10 mmol/L; Blood Urea Nitrogen 19 mg/dL (9-20); Calcium 9.2 mg/dL (8.4-10.2); Carbon Dioxide 23 mmol/L (22-30); Chloride 107 mmol/L (98-107); Glucose 98 mg/dL (74-99); Potassium 4.9 mmol/L (3.5-5.1); Sodium 140 mmol/L (137-145); Total Bilirubin 0.5 mg/dL (0.2-1.3); Total Protein 6.8 g/dL (6.3-8.2)
== END | disposition home or self-care (01) ==
LOC: LABWHC1 10:42
PROVIDERS: ATTEND Nurse Practitioner Acute Care
DX: Z48.812 Encounter for surgical aftercare following surgery on the circulatory system (principal)
CPT/HCPCS: 36415; 80053; 85025

== ENCOUNTER 2018-06-13 00:22 | Inpatient (IN) | payer BC ==
--- NOTE | 2018-06-13 00:53 | ED ---
General Adult HPI - General Chief complaint: Back Pain/Injury Stated complaint: Back Pain Time Seen by Provider: 06/13/18 00:43 Source: patient, RN notes reviewed, old records reviewed Mode of arrival: ambulatory Limitations: no limitations - History of Present Illness Initial comments: 58-year-old male presenting for evaluation of right-sided posterior chest pain. Patient states he's had pain for the past 2-3 days. This pain is worse with lying flat and deep inspiration. Describes the pain as sharp and severe in nature. This is been keeping the patient from sleeping. He is approximately 3 weeks postop coronary bypass graft surgery. Denies any central chest pain. Denies fever or chills. Denies significant dyspnea. Denies cough. Patient is currently on aspirin and Plavix. He has been taking his medications as prescribed. He does report some lower extremity swelling in the site of vein harvesting. No abdominal pain. No nausea vomiting. Denies any injury. Pain is minimal at the time my evaluation. - Related Data Home Medications Medication Instructions Recorded Confirmed Tamsulosin [Flomax] 0.4 mg PO DAILY 05/10/18 05/20/18 Calcium Polycarbophil [Fibercon] 625 mg PO DAILY 05/17/18 05/20/18 Clopidogrel [Plavix] 75 mg PO DAILY 05/17/18 05/20/18 Multivitamin [Men's Multi-Vitamin] 1 tab PO DAILY 05/17/18 05/20/18 Cholecalciferol [Vitamin D3] 400 unit PO DAILY 05/20/18 05/20/18 Previous Rx's Medication Instructions Recorded Aspirin 325 mg PO DAILY #60 tab 05/12/18 Atorvastatin [Lipitor] 40 mg PO DAILY #30 tab 05/24/18 HYDROcodone/APAP 5-325MG [[place] 1 each PO Q6HR PRN #14 tab 05/24/18 5-325] Metoprolol Tartrate [Lopressor] 25 mg PO BID #60 tab 05/24/18 Pantoprazole [Protonix] 40 mg PO AC-BRKFST #30 tablet. 05/24/18 Allergies Allergy/AdvReac Type Severity Reaction Status Date / Time No Known Allergies Allergy Verified 06/13/18 00:40 Review of Systems ROS Statement: Those systems with pertinent positive or pertinent negative responses have been documented in the HPI. ROS Other: All systems not noted in ROS Statement are negative. Past Medical History Past Medical History: Coronary Artery Disease (CAD), Chest Pain / Angina, Hyperlipidemia, Hypertension, Myocardial Infarction ([place]), Osteoarthritis (OA), Pneumonia, Prostate Disorder Additional Past Medical History / Comment(s): Past BPH but pt said a recent physical showed no longer a problem, nodule on lung being monitored. Last Myocardial Infarction Date:: 2003 History of Any Multi-Drug Resistant Organisms: None Reported Past Surgical History: Heart Catheterization, Heart Catheterization With Stent, Orthopedic Surgery, Tonsillectomy Additional Past Surgical History / Comment(s): Pt states he has a total of 13 stents with last stenting done in 2016, L knee arthroscopy Past Anesthesia/Blood Transfusion Reactions: No Reported Reaction Date of Last Stent Placement:: 2015 Past Psychological History: No Psychological Hx Reported Smoking Status: Former smoker Past Alcohol Use History: Occasional Past Drug Use History: None Reported - Past Family History Father Family Medical History: Cancer, Coronary Artery Disease (CAD) Additional Family Medical History / Comment(s): Father had CABG done twice. He is from a cancer that involved his bones at the age of 80yrs. Mother Family Medical History: No Reported History General Exam Limitations: no limitations General appearance: alert, in no apparent distress Head exam: Present: atraumatic, normocephalic Eye exam: Present: normal appearance, PERRL ENT exam: Present: normal exam Neck exam: Present: normal inspection. Absent: tenderness, meningismus Respiratory exam: Present: normal lung sounds bilaterally, other (Sternotomy incision, clean dry and intact). Absent: respiratory distress, wheezes, rales Cardiovascular Exam: Present: regular rate, normal rhythm GI/Abdominal exam: Present: soft. Absent: distended, tenderness, guarding, rebound Back exam: Present: normal inspection, full ROM. Absent: tenderness, CVA tenderness (R), CVA tenderness (L), muscle spasm, paraspinal tenderness, vertebral tenderness Neurological exam: Present: alert, oriented X3, CN II-XII intact. Absent: motor sensory deficit Psychiatric exam: Present: normal affect, normal mood Skin exam: Present: warm, dry, intact. Absent: cyanosis, diaphoretic Course Vital Signs 06/13/18 00:37 Temperature 98.3 F Pulse Rate 79 Respiratory 18 Rate Blood Pressure 109/70 O2 Sat by Pulse 98 Oximetry EKG Findings - EKG Comments: EKG Findings:: EKG: Normal sinus rhythm, rate of 71, VA interval 92, QTC 428, T- wave inversion in lead 1, aVL, and V2 V3 and V4 V5 and V6. No ST segment elevation. Changes are new compared with EKG on 05/20/2018. Medical Decision Making - Medical Decision Making 58 yo male presenting with right posterior chest pain. Pain is described as sharp and worse with deep inspiration. Patient is postoperative coronary bypass grafting proximally 3 weeks ago. Denies cough. Denies fever or chills. Denies significant dyspnea. Workup in the emergency department reveals, chest x-ray with small bilateral effusions which are improved from previous. CT angiography is obtained for concern of pulmonary embolism given the pleuritic nature of this pain and the fact that this patient is status post recent surgery. This is negative for pulmonary embolism, shows small bilateral effusions. EKG does show T-wave inversion which is new compared to previous EKG. Troponin is 0.047. Patient is postop open-heart surgery however this was greater than 3 weeks ago. Given this elevated troponin and EKG changes, case is discussed with cardiology, Dr. Knowles, recommends heparin, and serial cardiac enzymes. Patient will be placed in observation with telemetry, serial cardiac enzymes and cardiology consultation. - Lab Data Result diagrams: 06/13/18 01:12 06/13/18 01:12 Lab Results 06/13/18 06/13/18 06/13/18 Range/Units 01:12 01:12 01:12 WBC 11.5 H (3.8-10.6) k/uL RBC 4.11 L (4.30-5.90) m/uL Hgb 12.4 L (13.0-17.5) gm/dL Hct 37.0 L (39.0-53.0) % MCV 90.2 (80.0-100.0) fL MCH 30.2 (25.0-35.0) pg MCHC 33.4 (31.0-37.0) g/dL RDW 13.4 (11.5-15.5) % Plt Count 357 (150-450) k/uL Neutrophils % 62 % Lymphocytes % 13 % Monocytes % 10 % Eosinophils % 13 % Basophils % 1 % Neutrophils # 7.1 (1.3-7.7) k/uL Lymphocytes # 1.5 (1.0-4.8) k/uL Monocytes # 1.1 H (0-1.0) k/uL Eosinophils # 1.5 H (0-0.7) k/uL Basophils # 0.1 (0-0.2) k/uL PT 9.5 (9.0-12.0) sec INR 1.0 (<1.2) APTT 26.0 (22.0-30.0) sec Sodium 135 L (137-145) mmol/L Potassium 4.7 (3.5-5.1) mmol/L Chloride 105 (98-107) mmol/L Carbon Dioxide 19 L (22-30) mmol/L Anion Gap 11 mmol/L BUN 18 (9-20) mg/dL Creatinine 0.70 (0.66-1.25) mg/dL Est GFR (CKD-EPI)AfAm >90 (>60 ml/min/1.73 sqM) Est GFR (CKD-EPI)NonAf >90 (>60 ml/min/1.73 sqM) Glucose 113 H (74-99) mg/dL Calcium 9.1 (8.4-10.2) mg/dL Total Bilirubin 0.3 (0.2-1.3) mg/dL AST 19 (17-59) U/L ALT 28 (21-72) U/L Alkaline Phosphatase 122 (38-126) U/L Troponin I (0.000-0.034) ng/mL Total Protein 7.1 (6.3-8.2) g/dL Albumin 3.9 (3.5-5.0) g/dL Lipase 114 (23-300) U/L Urine Color Urine Appearance (Clear) Urine pH (5.0-8.0) Ur Specific [place] (1.001-1.035) Urine Protein (Negative) Urine Glucose (UA) (Negative) Urine Ketones (Negative) Urine Blood (Negative) Urine Nitrite (Negative) Urine Bilirubin (Negative) Urine Urobilinogen (<2.0) mg/dL Ur Leukocyte Esterase (Negative) 06/13/18 06/13/18 Range/Units 01:12 01:32 WBC (3.8-10.6) k/uL RBC (4.30-5.90) m/uL Hgb (13.0-17.5) gm/dL Hct (39.0-53.0) % MCV (80.0-100.0) fL MCH (25.0-35.0) pg MCHC (31.0-37.0) g/dL RDW (11.5-15.5) % Plt Count (150-450) k/uL Neutrophils % % Lymphocytes % % Monocytes % % Eosinophils % % Basophils % % Neutrophils # (1.3-7.7) k/uL Lymphocytes # (1.0-4.8) k/uL Monocytes # (0-1.0) k/uL Eosinophils # (0-0.7) k/uL Basophils # (0-0.2) k/uL PT (9.0-12.0) sec INR (<1.2) APTT (22.0-30.0) sec Sodium (137-145) mmol/L Potassium (3.5-5.1) mmol/L Chloride (98-107) mmol/L Carbon Dioxide (22-30) mmol/L Anion Gap mmol/L BUN (9-20) mg/dL Creatinine (0.66-1.25) mg/dL Est GFR (CKD-EPI)AfAm (>60 ml/min/1.73 sqM) Est GFR (CKD-EPI)NonAf (>60 ml/min/1.73 sqM) Glucose (74-99) mg/dL Calcium (8.4-10.2) mg/dL Total Bilirubin (0.2-1.3) mg/dL AST (17-59) U/L ALT (21-72) U/L Alkaline Phosphatase (38-126) U/L Troponin I 0.047 H* (0.000-0.034) ng/mL Total Protein (6.3-8.2) g/dL Albumin (3.5-5.0) g/dL Lipase (23-300) U/L Urine Color Yellow Urine Appearance Clear (Clear) Urine pH 5.5 (5.0-8.0) Ur Specific [place] 1.014 (1.001-1.035) Urine Protein Negative (Negative) Urine Glucose (UA) Negative (Negative) Urine Ketones Negative (Negative) Urine Blood Negative (Negative) Urine Nitrite Negative (Negative) Urine Bilirubin Negative (Negative) Urine Urobilinogen <2.0 (<2.0) mg/dL Ur Leukocyte Esterase Negative (Negative) Disposition Clinical Impression: Troponin level elevated, Atypical chest pain Disposition: ADMITTED IP TO THIS HOSP Condition: Stable Is patient prescribed a controlled substance at d/c from ED?: No Referrals: Manuel Trammell MD [Primary Care Provider] - 1-2 days Decision to Admit Reason: Admit from EC Decision Date: 06/13/18 Decision Time: 03:05
--- NOTE | 2018-06-13 01:10 | XR ---
EXAMINATION TYPE: XR chest 2V DATE OF EXAM: 06/13/2018 COMPARISON: 05/24/2018 HISTORY: Chest pain TECHNIQUE: Frontal and lateral views of the chest are obtained. FINDINGS: There is no heart failure nor confluent pneumonic infiltrate. There is slight blunting of the posterior costophrenic angles. There are sternal wires. There is calcified granuloma in the right upper lobe. Heart size is normal. IMPRESSION: There are small pleural effusions that are decreased compared to last exam. No heart pushpa lure.
[2018-06-13 01:20] LABS: Basophils # (A) 0.1 k/uL (0-0.2); Basophils % (A) 1 %; Eosinophils # (A) 1.5 k/uL (0-0.7); Eosinophils % (A) 13 %; HGB 12.4 gm/dL (13.0-17.5); Lymphocytes # (A) 1.5 k/uL (1.0-4.8); Lymphocytes % (A) 13 %; MCH 30.2 pg (25.0-35.0); MCHC 33.4 g/dL (31.0-37.0); MCV 90.2 fL (80.0-100.0); Mean Platelet Volume 6.5; Monocytes # (A) 1.1 k/uL (0-1.0); Monocytes % (A) 10 %; Neutrophils # (A) 7.1 k/uL (1.3-7.7); Neutrophils % (A) 62 %; Platelet Count 357 k/uL (150-450); RBC 4.11 m/uL (4.30-5.90); RDW 13.4 % (11.5-15.5); WBC 11.5 k/uL (3.8-10.6)
[2018-06-13 01:29] LABS: ALT 28 U/L (21-72); AST 19 U/L (17-59); Albumin 3.9 g/dL (3.5-5.0); Alkaline Phosphatase 122 U/L (38-126); Anion Gap 11 mmol/L; Blood Urea Nitrogen 18 mg/dL (9-20); Calcium 9.1 mg/dL (8.4-10.2); Carbon Dioxide 19 mmol/L (22-30); Chloride 105 mmol/L (98-107); Glucose 113 mg/dL (74-99); Lipase 114 U/L (23-300); Potassium 4.7 mmol/L (3.5-5.1); Sodium 135 mmol/L (137-145); Total Bilirubin 0.3 mg/dL (0.2-1.3); Total Protein 7.1 g/dL (6.3-8.2)
[2018-06-13 01:32] LABS: Prothrombin Time 9.5 sec (9.0-12.0)
[2018-06-13 01:39] LABS: Appearance,Urine Clear (Clear); Bilirubin,Urine Negative (Negative); Blood,Urine Negative (Negative); Color,Urine Yellow; Glucose,Urine (UA) Negative (Negative); Ketones,Urine Negative (Negative); Leukocyte Esterase,Urine Negative (Negative); Nitrite,Urine Negative (Negative); PH, Urine 5.5 (5.0-8.0); Protein,Urine Negative (Negative); Specific Gravity,Urine 1.014 (1.001-1.035); Urobilinogen,Urine <2.0 mg/dL (<2.0)
--- NOTE | 2018-06-13 02:31 | CT ---
EXAMINATION TYPE: CT angio chest DATE OF EXAM: 06/13/2018 2:07 AM COMPARISON: HISTORY: chest and back pain;[address] DLP: 412.60 mGycm Automated exposure control for dose reduction was used. CONTRAST: CTA scan of the thorax is performed with IV Contrast, patient injected with 60 mL of Isovue 370, pulm onary embolism protocol. There are 3-D post processed images.. FINDINGS: There are bilateral pleural effusions. There is no pericardial effusion. Thoracic aorta is atheromato us. There is no evidence of aortic aneurysm. I see no definite filling defect in the pulmonary arteri es. There are a few anterior mediastinal lymph nodes measure up to 1 cm. The bony thorax is intact. T here are sternal wires. There are calcified splenic granulomata. IMPRESSION: BILATERAL PLEURAL EFFUSIONS. NO EVIDENCE OF PULMONARY EMBOLISM.
[2018-06-13] MEDS ORDERED: HYDROcodone/APAP 5-325MG 1 EACH TAB PO STA (02:41)
[2018-06-13] MEDS ORDERED: NALOXONE 0.4 MG/ML 1 ML VIAL IV PRN (03:33)
[2018-06-13] MEDS ORDERED: HEPARIN SODIUM,PORCINE 5,000 UNIT/ML 1 ML VIAL IV ONE (03:33)
[2018-06-13] MEDS ORDERED: HYDROcodone/APAP 5-325MG 1 EACH TAB PO PRN (03:33)
[2018-06-13] MEDS ORDERED: HEPARIN SODIUM,PORCINE 5,000 UNIT/ML 1 ML VIAL IV PRN (03:33)
[2018-06-13] MEDS: SODIUM CHLORIDE 0.9% 1,000 ML IV SCH ×2 (04:42→22:01)
[2018-06-13] MEDS: HEPARIN SOD,PORK IN 0.45% NACL 25,000 UNIT in 0.45% NACL 1 500ML.BAG IV SCH (04:42)
[2018-06-13 07:53] LABS: Creatine Kinase MB 0.4 ng/mL (0.0-2.4)
[2018-06-13 07:54] LABS: Troponin I 0.05 ng/mL (0.000-0.034)
[2018-06-13 13:19] VITALS: RESP 18
--- NOTE | 2018-06-13 13:20 | P.CRDCN ---
History of Present Illness Consult date: 06/13/18 History of present illness: This is a 58-year-old gentleman with history of coronary artery disease with history of multiple percutaneous revascularization and recent bypass surgery because of in-stent stenosis. Patient underwent bypass surgery withLIMA graft to the LAD and vein graft to the PDA and also diagonal coronary artery. Patient has been recovering fairly well. He came to the emergency room mainly with complaints of right flank pain mostly in the renal angle area. The pain is more so when he rests for a long time. He claims that if he gets up and walks around he gets some relief. He denies any chest pain. He is otherwise feeling well. His EKG showed an T-wave inversions in anterolateral leads, Most probably from the recent surgery. Troponins 2 are mildly elevated but not consistent with acute coronary injury pattern. From cardiac standpoint, patient could be discharged home. He had a computed tomography scan of the chest which ruled out pulmonary emboli. The etiology of the pain is not clear. He may need further evaluation with CT of the abdomen and surgical consult Review of Systems As per the chart Past Medical History Past Medical History: Coronary Artery Disease (CAD), Chest Pain / Angina, Hyperlipidemia, Hypertension, Myocardial Infarction ([place]), Osteoarthritis (OA), Pneumonia, Prostate Disorder Additional Past Medical History / Comment(s): Past BPH but pt said a recent physical showed no longer a problem, nodule on lung being monitored. Last Myocardial Infarction Date:: 2003 History of Any Multi-Drug Resistant Organisms: None Reported Past Surgical History: Heart Catheterization, Heart Catheterization With Stent, Orthopedic Surgery, Tonsillectomy Additional Past Surgical History / Comment(s): Pt states he has a total of 13 stents with last stenting done in 2016, L knee arthroscopy Past Anesthesia/Blood Transfusion Reactions: No Reported Reaction Date of Last Stent Placement:: 2015 Past Psychological History: No Psychological Hx Reported Smoking Status: Former smoker Past Alcohol Use History: Occasional Past Drug Use History: None Reported - Past Family History Father Family Medical History: Cancer, Coronary Artery Disease (CAD) Additional Family Medical History / Comment(s): Father had CABG done twice. He is from a cancer that involved his bones at the age of 80yrs. Mother Family Medical History: No Reported History Medications and Allergies Home Medications Medication Instructions Recorded Confirmed Type Tamsulosin [Flomax] 0.4 mg PO DAILY 05/10/18 06/13/18 History Aspirin 325 mg PO DAILY #60 tab 05/12/18 06/13/18 Rx Calcium Polycarbophil [Fibercon] 625 mg PO DAILY 05/17/18 06/13/18 History Clopidogrel [Plavix] 75 mg PO DAILY 05/17/18 06/13/18 History Multivitamin [Men's Multi-Vitamin] 1 tab PO DAILY 05/17/18 06/13/18 History Cholecalciferol [Vitamin D3] 400 unit PO DAILY 05/20/18 06/13/18 History Atorvastatin [Lipitor] 40 mg PO DAILY #30 tab 05/24/18 06/13/18 Rx Metoprolol Tartrate [Lopressor] 25 mg PO BID #60 tab 05/24/18 06/13/18 Rx Pantoprazole [Protonix] 40 mg PO AC-BRKFST #30 tablet. 05/24/18 06/13/18 Rx Allergies Allergy/AdvReac Type Severity Reaction Status Date / Time No Known Allergies Allergy Verified 06/13/18 10:24 Physical Exam Vitals: Vital Signs Temp Pulse Resp BP Pulse Ox 06/13/18 10:34 75 16 126/80 95 06/13/18 04:40 74 15 125/67 100 06/13/18 00:37 98.3 F 79 18 109/70 98 Intake and Output 06/12/18 06/13/18 06/13/18 22:59 06:59 14:59 Intake Total 157.163 Balance 157.163 Intake: Intake, IV Titration 157.163 Amount Heparin Sod,Pork in 0.45% 157.163 NaCl 25,000 unit In 0.45 % NaCl 1 500ml.bag @ 12 UNITS/KG/HR 19.05 mls/hr IV .Q24H [facility] Rx#: [id number] Other: Weight 79.379 kg GENERAL EXAM: Patient is alert and oriented and doesn't appear to be in any acute distress HEENT: Normocephalic. Normal reaction of pupils, equal size, normal range of extraocular motion. No erythema or exudates in the throat. NECK: No masses, no nuchal rigidity. CHEST: No chest wall deformity. LUNGS: [Equal air entry with no crackles or wheeze.] HEART: [S1 and S2 normal with no audible mumurs or gallops. Regular rhythm, femorals equal on both sides..] ABDOMEN: No hepatosplenomegaly, normal bowel sounds, no guarding or rigidity. SKIN: No rashes CENTRAL NERVOUS SYSTEM: No focal deficits. EXTREMITIES: [No cyanosis, clubbing or edema. Results 06/13/18 01:12 06/13/18 01:12 Cardiac Enzymes 06/13/18 06/13/18 06/13/18 Range/Units 01:12 01:12 07:02 AST 19 (17-59) U/L CK-MB (CK-2) 0.4 (0.0-2.4) ng/mL Troponin I 0.047 H* 0.050 H* (0.000-0.034) ng/mL Coagulation 06/13/18 06/13/18 Range/Units 01:12 11:24 PT 9.5 (9.0-12.0) sec APTT 26.0 31.4 H (22.0-30.0) sec CBC 06/13/18 Range/Units 01:12 WBC 11.5 H (3.8-10.6) k/uL RBC 4.11 L (4.30-5.90) m/uL Hgb 12.4 L (13.0-17.5) gm/dL Hct 37.0 L (39.0-53.0) % Plt Count 357 (150-450) k/uL Comprehensive Metabolic Panel 06/13/18 Range/Units 01:12 Sodium 135 L (137-145) mmol/L Potassium 4.7 (3.5-5.1) mmol/L Chloride 105 (98-107) mmol/L Carbon Dioxide 19 L (22-30) mmol/L BUN 18 (9-20) mg/dL Creatinine 0.70 (0.66-1.25) mg/dL Glucose 113 H (74-99) mg/dL Calcium 9.1 (8.4-10.2) mg/dL AST 19 (17-59) U/L ALT 28 (21-72) U/L Alkaline Phosphatase 122 (38-126) U/L Total Protein 7.1 (6.3-8.2) g/dL Albumin 3.9 (3.5-5.0) g/dL Current Medications Generic Name Dose Route Start Last Admin Trade Name Freq PRN Reason Stop Dose Admin Hydrocodone Bitart/Acetaminophen 1 each 06/13/18 03:33 06/13/18 12:49 [place] 5-325 PO 1 each Q4HR PRN Administration Moderate Pain Heparin Sodium (Porcine) 0 unit 06/13/18 03:33 Heparin IV PER PROTOCOL PRN Low PTT Protocol Heparin Sodium/Sodium Chloride 500 mls @ 19.05 mls/hr 06/13/18 03:45 12:57 25,000 unit/ Sodium Chloride IV 15 units/kg/hr .Q24H [facility] 23.81 mls/hr Titration Protocol 12 UNITS/KG/HR Sodium Chloride 1,000 mls @ 75 mls/hr 06/13/18 03:45 06/13/18 04:42 Saline 0.9% IV 75 mls/hr .[id number] [facility] Administration Naloxone HCl 0.2 mg 06/13/18 03:33 Narcan IV Q2M PRN Opioid Reversal Intake and Output 06/12/18 06/13/18 06/13/18 22:59 06:59 14:59 Intake Total 157.163 Balance 157.163 Intake: Intake, IV Titration 157.163 Amount Heparin Sod,Pork in 0.45% 157.163 NaCl 25,000 unit In 0.45 % NaCl 1 500ml.bag @ 12 UNITS/KG/HR 19.05 mls/hr IV .Q24H [facility] Rx#: [id number] Other: Weight 79.379 kg 06/13/18 01:12 06/13/18 01:12 EKG Interpretations (text) Sinus rhythm with a diffuse T-wave changes in anterior leads Assessment and Plan (1) Flank pain Current Visit: Yes Status: Acute Code(s): R10.9 - UNSPECIFIED ABDOMINAL PAIN SNOMED Code(s): 424325998 (2) Troponin level elevated Current Visit: Yes Status: Acute Code(s): R74.8 - ABNORMAL LEVELS OF OTHER SERUM ENZYMES SNOMED Code(s): 318328861 (3) CAD (coronary artery disease) Current Visit: No Status: Chronic Code(s): I25.10 - ATHSCL HEART DISEASE OF [place] CORONARY ARTERY W/O ANG PCTRS SNOMED Code(s): 94199738 (4) Essential hypertension Current Visit: No Status: Chronic Code(s): I10 - ESSENTIAL (PRIMARY) HYPERTENSION SNOMED Code(s): 95562748 Plan: From a cardiac standpoint, patient is stable. His EKG changes and troponin elevations are nonspecific and not consistent with acute coronary syndrome. May need further evaluation with surgical consult for the flank pain.
[2018-06-13 14:54] LABS: Creatine Kinase MB 0.4 ng/mL (0.0-2.4)
[2018-06-13 15:08] LABS: Troponin I 0.044 ng/mL (0.000-0.034)
[2018-06-13] MEDS: MORPHINE SULFATE 4 MG/ML SYRINGE IVP PRN ×2 (16:25→20:02)
--- NOTE | 2018-06-13 17:42 | US ---
EXAMINATION TYPE: US kidneys/renal and bladder DATE OF EXAM: 06/13/2018 COMPARISON: NONE CLINICAL HISTORY: b/l flank/low back pain . Patient scanned sitting up due to pain. EXAM MEASUREMENTS: Right Kidney: 10.8 x 5.9 x 4.6 cm Left Kidney: 11.7 x 6.4 x 4.8 cm Right Kidney: No hydronephrosis or masses seen Left Kidney: No hydronephrosis or masses seen Bladder: wnl as visualized, not fully distended Bilateral Jets seen: Not on this exam IMPRESSION: No renal mass or obstruction.
--- NOTE | 2018-06-13 18:10 | CT ---
EXAMINATION TYPE: CT abdomen pelvis wo con DATE OF EXAM: 06/13/2018 COMPARISON: None HISTORY: Bilateral lower back and flank pain. Triple bypass 05-22-18. CT DLP: 598.4 mGycm Automated exposure control for dose reduction was used. TECHNIQUE: Helical acquisition of images was performed from the lung bases through the pelvis. FINDINGS: There are bilateral pleural effusions. There is some atelectasis at the lung bases. There are small calcified splenic granulomata. There is no pancreatic mass. Liver has normal size and contour. There is no dilated ducts. Gallbladder appears normal. There is no adrenal mass. Kidneys show no hydronephrosis. Ureters are not dilated. There are small re nal calcifications are probably vascular. There is no retroperitoneal adenopathy. Abdominal aorta is atheromatous. There is no abdominal aortic aneurysm. Appendix appears normal. There are multiple sigm oid diverticula. There is no evidence of diverticulitis. Bladder distends smoothly. There is prosthet ic calcification. Lumbar spine is intact. I see no intestinal wall thickening. There are no dilated l oops. There is no ascites. There is no sign of free air. IMPRESSION: ATHEROMATOUS AORTA. PLEURAL EFFUSIONS AND BASILAR PULMONARY ATELECTASIS. NO RENAL OBSTRUCTION. NORMAL APPENDIX. SIGMOID DIVERTICULOSIS.
[2018-06-13] MEDS ORDERED: KETOROLAC 30 MG/ML 1 ML VIAL IVP PRN (20:19)
[2018-06-13] MEDS: HYDROcodone/APAP 5-325MG 1 EACH TAB PO PRN (22:01)
[2018-06-13] MEDS: METOPROLOL TARTRATE 25 MG TAB PO SCH (22:01)
[2018-06-14 02:34] VITALS: BMI 24.4
[2018-06-14] MEDS: HEPARIN SOD,PORK IN 0.45% NACL 25,000 UNIT in 0.45% NACL 1 500ML.BAG IV SCH (03:30)
[2018-06-14] MEDS: SODIUM CHLORIDE 0.9% 1,000 ML IV SCH (06:25)
[2018-06-14] MEDS: HYDROcodone/APAP 5-325MG 1 EACH TAB PO PRN (06:28)
[2018-06-14 06:30] LABS: Basophils # (A) 0.1 k/uL (0-0.2); Basophils % (A) 1 %; Eosinophils # (A) 1.4 k/uL (0-0.7); Eosinophils % (A) 15 %; HGB 11.4 gm/dL (13.0-17.5); Lymphocytes # (A) 1.7 k/uL (1.0-4.8); Lymphocytes % (A) 18 %; MCH 30.7 pg (25.0-35.0); MCHC 33.4 g/dL (31.0-37.0); MCV 91.8 fL (80.0-100.0); Mean Platelet Volume 6.3; Monocytes # (A) 0.9 k/uL (0-1.0); Monocytes % (A) 9 %; Neutrophils # (A) 5.1 k/uL (1.3-7.7); Neutrophils % (A) 55 %; Platelet Count 294 k/uL (150-450); RDW 13.4 % (11.5-15.5); WBC 9.3 k/uL (3.8-10.6)
[2018-06-14 06:37] LABS: Partial Thromboplastin Time 44.1 sec (22.0-30.0)
[2018-06-14 06:48] LABS: Anion Gap 6 mmol/L; Blood Urea Nitrogen 13 mg/dL (9-20); Calcium 8.9 mg/dL (8.4-10.2); Carbon Dioxide 24 mmol/L (22-30); Chloride 106 mmol/L (98-107); Glucose 106 mg/dL (74-99); Potassium 4.6 mmol/L (3.5-5.1); Sodium 136 mmol/L (137-145)
[2018-06-14] MEDS ORDERED: PANTOPRAZOLE 40 MG TABLET PO SCH (07:30)
[2018-06-14] MEDS: METOPROLOL TARTRATE 25 MG TAB PO SCH (08:51)
[2018-06-14] MEDS ORDERED: ATORVASTATIN 40 MG TAB PO SCH (09:00)
[2018-06-14] MEDS ORDERED: CLOPIDOGREL 75 MG TAB PO SCH (09:00)
[2018-06-14] MEDS ORDERED: TAMSULOSIN 0.4 MG CAP.ER.24H PO SCH (09:00)
[2018-06-14] MEDS ORDERED: ASPIRIN 325 MG TAB PO SCH (09:00)
--- NOTE | 2018-06-14 10:02 | P.GSCN ---
<Dafne Elliott - Last Filed: 06/14/18 09:48> History of Present Illness Consult date: 06/14/18 Reason for Consult: Patient known to us due to recent coronary artery bypass graft surgery. Requesting physician: Alex E Sheet History of present illness: This is a 58-year-old gentleman who follows with Dr. Manuel Trammell on an outpatient basis. He has a previous medical history of coronary artery disease , recent off pump CABG 05/20/18, history of myocardial infarction with stent placement, hypertension, hyperlipidemia, previous tobacco dependence, mild COPD , history of pneumonia, history of vein stripping, and EtOH use. He presented to the emergency room at [facility] yesterday with complaints of bilateral flank pain over the previous 2-3 days which was worse with laying flat and deep inspiration. He did state that ambulating made it better. Denies chest pain, shortness of breath, fever, chills, cough, weakness or dizziness, difficulty with urination or stooling. EKG demonstrated sinus rhythm with T-wave inversion in the anterolateral leads, troponins were mildly elevated at 0.04-0.05. CT of the chest was completed demonstrating no pulmonary embolism, small bilateral pleural effusion. He was admitted with consult placed to cardiology who felt EKG changes were nonspecific and that the changes and elevation in troponins were likely due to recent cardiac surgery, patient could be discharged home. Cardiothoracic surgery was not called, but was consulted by primary care service for our evaluation. Review of Systems Review of systems was completed and was negative except as noted in the HPI. Past Medical History Past Medical History: Coronary Artery Disease (CAD), Chest Pain / Angina, Hyperlipidemia, Hypertension, Myocardial Infarction ([place]), Osteoarthritis (OA), Pneumonia, Prostate Disorder Additional Past Medical History / Comment(s): Past BPH but pt said a recent physical showed no longer a problem, nodule on lung being monitored. Last Myocardial Infarction Date:: 2003 History of Any Multi-Drug Resistant Organisms: None Reported Past Surgical History: Coronary Bypass/CABG, Heart Catheterization, Heart Catheterization With Stent, Orthopedic Surgery, Tonsillectomy Additional Past Surgical History / Comment(s): Pt states he has a total of 13 stents with last stenting done in 2016, L knee arthroscopy. CABG 05/20/2018 Past Anesthesia/Blood Transfusion Reactions: No Reported Reaction Date of Last Stent Placement:: 2016 Past Psychological History: No Psychological Hx Reported Additional Psychological History / Comment(s): Pt resides with his significant other. He is independent. Smoking Status: Former smoker Past Alcohol Use History: Occasional Additional Past Alcohol Use History / Comment(s): Pt states he started smoking in 1977 and smokes a few cigarettes a day, quit smoking last week 05-12-18, He states he drinks a couple beers on weekdays and more on weekends, quit drinking last week Past Drug Use History: None Reported - Past Family History Father Family Medical History: Cancer, Coronary Artery Disease (CAD) Additional Family Medical History / Comment(s): Father had CABG done twice. He is from a cancer that involved his bones at the age of 80yrs. Mother Family Medical History: No Reported History Medications and Allergies Home Medications Medication Instructions Recorded Confirmed Type Tamsulosin [Flomax] 0.4 mg PO DAILY 05/10/18 06/13/18 History Aspirin 325 mg PO DAILY #60 tab 05/12/18 06/13/18 Rx Calcium Polycarbophil [Fibercon] 625 mg PO DAILY 05/17/18 06/13/18 History Clopidogrel [Plavix] 75 mg PO DAILY 05/17/18 06/13/18 History Multivitamin [Men's Multi-Vitamin] 1 tab PO DAILY 05/17/18 06/13/18 History Cholecalciferol [Vitamin D3] 400 unit PO DAILY 05/20/18 06/13/18 History Atorvastatin [Lipitor] 40 mg PO DAILY #30 tab 05/24/18 06/13/18 Rx Metoprolol Tartrate [Lopressor] 25 mg PO BID #60 tab 05/24/18 06/13/18 Rx Pantoprazole [Protonix] 40 mg PO AC-BRKFST #30 tablet. 05/24/18 06/13/18 Rx Cyclobenzaprine [Flexeril] 5 mg PO TID PRN #30 tablet 06/14/18 Rx traMADol HCL [Ultram] 50 mg PO Q4HR PRN 3 Days #18 tab 06/14/18 Rx Allergies Allergy/AdvReac Type Severity Reaction Status Date / Time No Known Allergies Allergy Verified 06/13/18 10:24 Surgical - Exam Vital Signs Temp Pulse Resp BP Pulse Ox 98.3 F 79 18 109/70 98 06/13/18 00:37 06/13/18 00:37 06/13/18 00:37 06/13/18 00:37 06/13/18 00:37 - General well developed, well nourished, no distress - Eyes PERRL, normal ocular movement - ENT no hearing loss - Neck no masses, no bruits, trachea midline - Respiratory Lungs sounds diminished in the bases bilaterally. Respirations even, nonlabored. Currently on room infection saturation 97%. Able to achieve 750 mL on his incentive spirometry. - Cardiovascular S1, S2 present. Regular rate and rhythm, sinus rhythm on telemetry. Sternum is stable. Palpable peripheral pulses bilaterally. No edema present. No calf pain or tenderness noted. - Abdomen Abdomen: soft, non tender, bowel sounds - Genitourinary Deferred - Rectum Deferred - Integumentary Skin is warm and dry with evidence of good perfusion. Anterior chest incision well approximated without drainage. no rash, no growths - Neurologic normal coordination, normal sensation - Musculoskeletal normal gait, normal posture - Psychiatric oriented to time, oriented to person, oriented to place, speech is normal, memory intact Results - Labs 06/14/18 05:37 06/14/18 05:37 Abnormal Lab Results - Last 24 Hours (Table) 06/13/18 06/13/18 06/13/18 Range/Units 11:24 14:14 20:51 RBC (4.30-5.90) m/uL Hgb (13.0-17.5) gm/dL Hct (39.0-53.0) % Eosinophils # (0-0.7) k/uL APTT 31.4 H 32.2 H (22.0-30.0) sec Sodium (137-145) mmol/L Glucose (74-99) mg/dL Total Creatine Kinase 31 L (55-170) U/L Troponin I 0.044 H* (0.000-0.034) ng/mL 06/14/18 06/14/18 06/14/18 Range/Units 05:37 05:37 05:37 RBC 3.70 L (4.30-5.90) m/uL Hgb 11.4 L (13.0-17.5) gm/dL Hct 34.0 L (39.0-53.0) % Eosinophils # 1.4 H (0-0.7) k/uL APTT 44.1 H (22.0-30.0) sec Sodium 136 L (137-145) mmol/L Glucose 106 H (74-99) mg/dL Total Creatine Kinase (55-170) U/L Troponin I (0.000-0.034) ng/mL Diabetes panel 06/14/18 Range/Units 05:37 Sodium 136 L (137-145) mmol/L Potassium 4.6 (3.5-5.1) mmol/L Chloride 106 (98-107) mmol/L Carbon Dioxide 24 (22-30) mmol/L BUN 13 (9-20) mg/dL Creatinine 0.71 (0.66-1.25) mg/dL Glucose 106 H (74-99) mg/dL Calcium 8.9 (8.4-10.2) mg/dL Calcium panel 06/14/18 Range/Units 05:37 Calcium 8.9 (8.4-10.2) mg/dL Pituitary panel 06/14/18 Range/Units 05:37 Sodium 136 L (137-145) mmol/L Potassium 4.6 (3.5-5.1) mmol/L Chloride 106 (98-107) mmol/L Carbon Dioxide 24 (22-30) mmol/L BUN 13 (9-20) mg/dL Creatinine 0.71 (0.66-1.25) mg/dL Glucose 106 H (74-99) mg/dL Calcium 8.9 (8.4-10.2) mg/dL Adrenal panel 06/14/18 Range/Units 05:37 Sodium 136 L (137-145) mmol/L Potassium 4.6 (3.5-5.1) mmol/L Chloride 106 (98-107) mmol/L Carbon Dioxide 24 (22-30) mmol/L BUN 13 (9-20) mg/dL Creatinine 0.71 (0.66-1.25) mg/dL Glucose 106 H (74-99) mg/dL Calcium 8.9 (8.4-10.2) mg/dL - Imaging Chest x-ray: report reviewed, image reviewed CT scan - abdomen: report reviewed, image reviewed CT scan - chest: report reviewed, image reviewed CT scan - pelvis: report reviewed, image reviewed EKG: image reviewed Assessment and Plan (1) Tobacco dependence in remission Status: Resolved Code(s): F17.201 - NICOTINE DEPENDENCE, UNSPECIFIED, IN REMISSION SNOMED Code(s): 942281361 (2) History of coronary artery bypass graft x 3 Status: Chronic Code(s): Z95.1 - PRESENCE OF AORTOCORONARY BYPASS GRAFT SNOMED Code(s): 684810824 (3) Flank pain Status: Acute Code(s): R10.9 - UNSPECIFIED ABDOMINAL PAIN SNOMED Code(s): 773773512 (4) CAD (coronary artery disease) Status: Chronic Code(s): I25.10 - ATHSCL HEART DISEASE OF [place] CORONARY ARTERY W/O ANG PCTRS SNOMED Code(s): 83586136 (5) Essential hypertension Status: Chronic Code(s): I10 - ESSENTIAL (PRIMARY) HYPERTENSION SNOMED Code( s): 96656630 (6) Hyperlipidemia Status: Chronic Code(s): E78.5 - HYPERLIPIDEMIA, UNSPECIFIED SNOMED Code(s) : 32875626 (7) Presence of stent in coronary artery in patient with coronary artery disease Status: Chronic Code(s): I25.10 - ATHSCL HEART DISEASE OF [place] CORONARY ARTERY W/O ANG PCTRS; Z95.5 - PRESENCE OF CORONARY ANGIOPLASTY IMPLANT AND GRAFT SNOMED Code(s): 852743996 (8) History of myocardial infarction Status: Resolved Code(s): I25.2 - OLD MYOCARDIAL INFARCTION SNOMED Code(s): 854326500 Plan: The patient was seen and examined at the bedside. Chart/diagnostics were reviewed. Case was discussed with Dr. Galarza who did evaluate this patient at the bedside. Would recommend changing from inpatient to observation status, also would recommend discharging patient to home. He does have a follow-up visit with Dr. Galarza already scheduled on June 17 at 12:15 PM. Patient should continue to use his incentive spirometry, ambulate as tolerated. This was discussed with primary care service. Thank you Dr. Raza for this consult. Please contact us with any questions. Time with Patient: Greater than 30 <Lan Galarza - Last Filed: 06/15/18 09:00> Surgical - Exam Vital Signs Temp Pulse Resp BP Pulse Ox 98.3 F 79 18 109/70 98 06/13/18 00:37 06/13/18 00:37 06/13/18 00:37 06/13/18 00:37 06/13/18 00:37 Results - Labs 06/14/18 05:37 06/14/18 05:37 Assessment and Plan Assessment: 58 yo m presents with chest wall pain s/p CABG 3 w ago. Rec discharge home, f/u in office as scheduled.
--- NOTE | 2018-06-14 10:54 | P.HPIM ---
History of Present Illness This is a pleasant 58 years old male with past medical history of coronary artery disease, status post cardiac cath, , hyperlipidemia, hypertension, osteoarthritis, BPH, who presents because of back/flank pain , the pain is on both sides of the lower spine , of 3 days duration, first was on the left then right and now on both sides , it is sharp in character, non radiating, currently 1/10 in severity, not associated with urinary s/s , no change in bowel habits of the pt , pt deneis trauma , no fever, no weakness or numbness in the lower ext or anywhere else pt has cardiac surgery for triple vessel disease here in this hospital In the emergency room patient had elevated troponins, cardiology consultation which thinks he is not consistent with acute coronary injury and states his can be discharged from their perspective. UA is negative. BMP was unremarkable. Also he has mild leukocytosis at 11.5 K. Patient had CTPA which shows bilateral pleural effusion with no evidence of pulmonary embolism. Chest x-ray shows decreased pleural effusion from last time exam. In the emergency room patient was started on heparin drip and normal saline at 75 mL/h. pt has been evaluated by label folder who recommended surgical consult Review of Systems CONSTITUTIONAL: No fever, no malaise, no fatigue. HEENT: No recent visual problems or hearing problems. Denied any sore throat. CARDIOVASCULAR: No orthopnea, PND, no palpitations, no syncope. PULMONARY: No shortness of breath, no cough, no hemoptysis. GASTROINTESTINAL: No diarrhea, no nausea, no vomiting, no abdominal pain. Normoactive bowel sounds. NEUROLOGICAL: No headaches, no weakness, no numbness. HEMATOLOGICAL: Denies any bleeding or petechiae. GENITOURINARY: Denies any burning micturition, frequency, or urgency. MUSCULOSKELETAL/RHEUMATOLOGICAL: Denies any joint pain, swelling, or any muscle pain. ENDOCRINE: Denies any polyuria or polydipsia. Past Medical History Past Medical History: Coronary Artery Disease (CAD), Chest Pain / Angina, Hyperlipidemia, Hypertension, Myocardial Infarction ([place]), Osteoarthritis (OA), Pneumonia, Prostate Disorder Additional Past Medical History / Comment(s): Past BPH but pt said a recent physical showed no longer a problem, nodule on lung being monitored. Last Myocardial Infarction Date:: 2003 History of Any Multi-Drug Resistant Organisms: None Reported Past Surgical History: Heart Catheterization, Heart Catheterization With Stent, Orthopedic Surgery, Tonsillectomy Additional Past Surgical History / Comment(s): Pt states he has a total of 13 stents with last stenting done in 2016, L knee arthroscopy Past Anesthesia/Blood Transfusion Reactions: No Reported Reaction Date of Last Stent Placement:: 2015 Past Psychological History: No Psychological Hx Reported Smoking Status: Former smoker Past Alcohol Use History: Occasional Past Drug Use History: None Reported - Past Family History Father Family Medical History: Cancer, Coronary Artery Disease (CAD) Additional Family Medical History / Comment(s): Father had CABG done twice. He is from a cancer that involved his bones at the age of 80yrs. Mother Family Medical History: No Reported History Medications and Allergies Home Medications Medication Instructions Recorded Confirmed Type Tamsulosin [Flomax] 0.4 mg PO DAILY 05/10/18 06/13/18 History Aspirin 325 mg PO DAILY #60 tab 05/12/18 06/13/18 Rx Calcium Polycarbophil [Fibercon] 625 mg PO DAILY 05/17/18 06/13/18 History Clopidogrel [Plavix] 75 mg PO DAILY 05/17/18 06/13/18 History Multivitamin [Men's Multi-Vitamin] 1 tab PO DAILY 05/17/18 06/13/18 History Cholecalciferol [Vitamin D3] 400 unit PO DAILY 05/20/18 06/13/18 History Atorvastatin [Lipitor] 40 mg PO DAILY #30 tab 05/24/18 06/13/18 Rx Metoprolol Tartrate [Lopressor] 25 mg PO BID #60 tab 05/24/18 06/13/18 Rx Pantoprazole [Protonix] 40 mg PO AC-BRKFSConstance #30 tablet. 05/24/18 06/13/18 Rx Allergies Allergy/AdvReac Type Severity Reaction Status Date / Time No Known Allergies Allergy Verified 06/13/18 10:24 Physical Exam Vitals: Vital Signs Temp Pulse Resp BP Pulse Ox 06/13/18 13:18 74 18 143/87 96 06/13/18 10:34 75 16 126/80 95 06/13/18 04:40 74 15 125/67 100 06/13/18 00:37 98.3 F 79 18 109/70 98 Intake and Output 06/13/18 06/13/18 06/13/18 06:59 14:59 22:59 Intake Total 157.163 Balance 157.163 Intake: Intake, IV Titration 157.163 Amount Heparin Sod,Pork in 0.45% 157.163 NaCl 25,000 unit In 0.45 % NaCl 1 500ml.bag @ 12 UNITS/KG/HR 19.05 mls/hr IV .Q24H [facility] Rx#: [id number] Other: Weight 79.379 kg GENERAL: The patient is alert and oriented x3, not in any acute distress. Well developed, well nourished. HEENT: Pupils are round and equally reacting to light. EOMI. No scleral icterus. No conjunctival pallor. Normocephalic, atraumatic. No pharyngeal erythema. No thyromegaly. CARDIOVASCULAR: S1 and S2 present. No murmurs, rubs, or gallops. PULMONARY: Chest is clear to auscultation, no wheezing or crackles. ABDOMEN: Soft, nontender, nondistended, normoactive bowel sounds. No palpable organomegaly. MUSCULOSKELETAL: No joint swelling or deformity. EXTREMITIES: No cyanosis, clubbing, or pedal edema. NEUROLOGICAL: Gross neurological examination did not reveal any focal deficits. SKIN: No rashes. Results CBC & Chem 7: 06/13/18 01:12 06/13/18 01:12 Labs: Abnormal Lab Results - Last 24 Hours (Table) 06/13/18 06/13/18 06/13/18 Range/Units 01:12 01:12 01:12 WBC 11.5 H (3.8-10.6) k/uL RBC 4.11 L (4.30-5.90) m/uL Hgb 12.4 L (13.0-17.5) gm/dL Hct 37.0 L (39.0-53.0) % Monocytes # 1.1 H (0-1.0) k/uL Eosinophils # 1.5 H (0-0.7) k/uL APTT (22.0-30.0) sec Sodium 135 L (137-145) mmol/L Carbon Dioxide 19 L (22-30) mmol/L Glucose 113 H (74-99) mg/dL Total Creatine Kinase (55-170) U/L Troponin I 0.047 H* (0.000-0.034) ng/mL 06/13/18 06/13/18 06/13/18 Range/Units 07:02 11:24 14:14 WBC (3.8-10.6) k/uL RBC (4.30-5.90) m/uL Hgb (13.0-17.5) gm/dL Hct (39.0-53.0) % Monocytes # (0-1.0) k/uL Eosinophils # (0-0.7) k/uL APTT 31.4 H (22.0-30.0) sec Sodium (137-145) mmol/L Carbon Dioxide (22-30) mmol/L Glucose (74-99) mg/dL Total Creatine Kinase 32 L 31 L (55-170) U/L Troponin I 0.050 H* (0.000-0.034) ng/mL Assessment and Plan Assessment: Right flank pain Positive troponin's, cleared by cardiology for discharge History of coronary artery disease, status post cardiac cath hyperlipidemia hypertension osteoarthritis Versed disease Plan: This is a pleasant 58 years old male who presents with right flank pain. Continue same treatment. Transverse symptomatic treatment. Resume home medication. Cardiology consult. DVT and GI prophylaxis. Further recommendations based on the clinical course the patient DVT prophylaxis: Subcutaneous heparin GI prophylaxis PPI PT/OT: hold
[2018-06-14] MEDS ORDERED: MULTIVITAMINS, THERA 1 EACH TAB PO SCH (12:00)
[2018-06-14] MEDS ORDERED: CHOLECALCIFEROL 400 UNIT TAB PO SCH (12:00)
[2018-06-14] MEDS ORDERED: CALCIUM POLYCARBOPHIL 625 MG TAB PO SCH (12:00)
--- NOTE | 2018-06-14 12:11 | P.PN ---
Subjective Progress Note Date: 06/14/18 This is a 58-year-old gentleman with history of coronary artery disease with history of multiple percutaneous revascularization and recent bypass surgery because of in-stent stenosis. Patient underwent bypass surgery withLIMA graft to the LAD and vein graft to the PDA and also diagonal coronary artery. Patient has been recovering fairly well. He came to the emergency room mainly with complaints of right flank pain mostly in the renal angle area. The pain is more so when he rests for a long time. He claims that if he gets up and walks around he gets some relief. He denies any chest pain. He is otherwise feeling well. Patient had a ultrasound of the kidneys performed, no renal mass or obstruction noted. CAT scan of the abdomen revealed atheromatous aorta, pleural effusions and basilar pulmonary atelectasis with no renal obstruction. Patient continues to complain of intermittent pain in the flank area, at the time of our examination he was pain-free. He did have significant pain earlier. Objective - Vital Signs Vital signs: Vital Signs Temp 97.3 F L 06/14/18 08:51 Pulse 72 06/14/18 08:51 Resp 18 06/14/18 08:51 BP 123/71 06/14/18 08:51 Pulse Ox 97 06/14/18 08:51 Intake & Output 06/13/18 06/14/18 06/14/18 18:59 06:59 18:59 Intake Total 171.863 7004.837 Output Total 1300 Balance 157.163 532.837 Weight 80.9 kg Intake: Amount of Fluid Infused ( 1400 ml) Intake, IV Titration 157.163 342.837 Amount Heparin Sod,Pork in 0.45% 157.163 342.837 NaCl 25,000 unit In 0.45 % NaCl 1 500ml.bag @ 12 UNITS/KG/HR 19.05 mls/hr IV .Q24H [facility] Rx#: [id number] Oral 90 Output: Urine 1300 Other: Voiding Method Toilet Toilet # Voids 0 - Exam GENERAL EXAM: Patient is alert and oriented and doesn't appear to be in any acute distress HEENT: Normocephalic. Normal reaction of pupils, equal size, normal range of extraocular motion. No erythema or exudates in the throat. NECK: No masses, no nuchal rigidity. CHEST: No chest wall deformity. LUNGS: [Equal air entry with no crackles or wheeze.] HEART: [S1 and S2 normal with no audible mumurs or gallops. Regular rhythm, femorals equal on both sides..] ABDOMEN: No hepatosplenomegaly, normal bowel sounds, no guarding or rigidity. SKIN: No rashes CENTRAL NERVOUS SYSTEM: No focal deficits. EXTREMITIES: [No cyanosis, clubbing or edema. - Labs CBC & Chem 7: 06/14/18 05:37 06/14/18 05:37 Labs: Abnormal Lab Results - Last 24 Hours (Table) 06/13/18 06/13/18 06/14/18 Range/Units 14:14 20:51 05:37 RBC 3.70 L (4.30-5.90) m/uL Hgb 11.4 L (13.0-17.5) gm/dL Hct 34.0 L (39.0-53.0) % Eosinophils # 1.4 H (0-0.7) k/uL APTT 32.2 H (22.0-30.0) sec Sodium (137-145) mmol/L Glucose (74-99) mg/dL Total Creatine Kinase 31 L (55-170) U/L Troponin I 0.044 H* (0.000-0.034) ng/mL 06/14/18 06/14/18 Range/Units 05:37 05:37 RBC (4.30-5.90) m/uL Hgb (13.0-17.5) gm/dL Hct (39.0-53.0) % Eosinophils # (0-0.7) k/uL APTT 44.1 H (22.0-30.0) sec Sodium 136 L (137-145) mmol/L Glucose 106 H (74-99) mg/dL Total Creatine Kinase (55-170) U/L Troponin I (0.000-0.034) ng/mL Assessment and Plan Plan: Assessment and plan #1 flank pain #2 mildly abnormal troponin, not consistent with acute coronary syndrome, likely secondary to recent surgery. #3 recent coronary bypass grafting surgery with prior history of multiple stent placements #4 hyperlipidemia #5 hypertension Plan From cardiology's perspective, patient is stable. Recommend further evaluation for the patient's flank pain. From our perspective we will follow along with you now on an as-needed basis only, please don't hesitate to call with any questions. DNP note has been reviewed, I agree with a documented findings and plan of care. Patient was seen and examined.
--- NOTE | 2018-06-14 12:28 | P.DS ---
Providers Date of admission: 06/13/18 03:35 Attending physician: Jaime Currie Consults: 06/13/18 03:34 Consult Physician Urgent Consulting Provider: David Knowles Consult Reason/Comments: Troponin elevation, atypical chest pain Do you want consulting provider notified?: Yes 06/13/18 16:25 Consult Physician Urgent Consulting Provider: Lan Galaraz Consult Reason/Comments: recent surgery , now with B/L flank or lower back pain Do you want consulting provider notified?: Yes Primary care physician: [facility] Course: 58-year-old gentleman came in with the flank pain on the right side along with the back pain and paraspinal tenderness. He appears to be spasm of the back. Patient had a recent CABG and had minimally elevated troponins secondary to that because of which the patient was admitted to rule out acute coronary syndromes cardio evaluated the patient no further recommendations from them. Patient will be started on nonsteroidal anti-inflammatory tramadol because of her recent surgery and not starting patient on naproxen or ibuprofen. Patient will be given Flexeril as well patient related to follow up with orthopedic surgery and physical therapy as an outpatient. Patient does have mild pleural effusions bilaterally with no evidence of pulmonary embolism. Extensive workup for his flank pain is all negative including CT of the abdomen and pelvis along with ultrasound of the kidney. There are no signs or symptoms of urinary tract infection PHYSICAL EXAMINATION: GENERAL: The patient is alert and oriented x3, not in any acute distress. Well developed, well nourished. HEENT: Pupils are round and equally reacting to light. EOMI. No scleral icterus. No conjunctival pallor. Normocephalic, atraumatic. No pharyngeal erythema. No thyromegaly. CARDIOVASCULAR: S1 and S2 present. No murmurs, rubs, or gallops. PULMONARY: Chest is clear to auscultation, no wheezing or crackles. ABDOMEN: Soft, nontender, nondistended, normoactive bowel sounds. No palpable organomegaly. MUSCULOSKELETAL: No joint swelling or deformity. EXTREMITIES: No cyanosis, clubbing, or pedal edema. NEUROLOGICAL: Gross neurological examination did not reveal any focal deficits. SKIN: No rashes. Right flank pain one secondary to muscle spasm paraspinal Positive troponin's, cleared by cardiology for discharge History of coronary artery disease, status post coronary artery bypass grafting hyperlipidemia hypertension osteoarthritis Patient Condition at Discharge: Stable Plan - Discharge Summary Discharge Rx Participant: No New Discharge Prescriptions: New Cyclobenzaprine [Flexeril] 5 mg PO TID PRN #30 tablet PRN Reason: Spasms traMADol HCL [Ultram] 50 mg PO Q4HR PRN 3 Days #18 tab PRN Reason: Pain No Action Tamsulosin [Flomax] 0.4 mg PO DAILY Aspirin 325 mg PO DAILY #60 tab Calcium Polycarbophil [Fibercon] 625 mg PO DAILY Clopidogrel [Plavix] 75 mg PO DAILY Multivitamin [Men's Multi-Vitamin] 1 tab PO DAILY Cholecalciferol [Vitamin D3] 400 unit PO DAILY Atorvastatin [Lipitor] 40 mg PO DAILY #30 tab Metoprolol Tartrate [Lopressor] 25 mg PO BID #60 tab Pantoprazole [Protonix] 40 mg PO AC-BRKFST #30 tablet.dr Discharge Medication List Tamsulosin [Flomax] 0.4 mg PO DAILY 05/10/18 [History] Aspirin 325 mg PO DAILY #60 tab 05/12/18 [Rx] Calcium Polycarbophil [Fibercon] 625 mg PO DAILY 05/17/18 [History] Clopidogrel [Plavix] 75 mg PO DAILY 05/17/18 [History] Multivitamin [Men's Multi-Vitamin] 1 tab PO DAILY 05/17/18 [History] Cholecalciferol [Vitamin D3] 400 unit PO DAILY 05/20/18 [History] Atorvastatin [Lipitor] 40 mg PO DAILY #30 tab 05/24/18 [Rx] Metoprolol Tartrate [Lopressor] 25 mg PO BID #60 tab 05/24/18 [Rx] Pantoprazole [Protonix] 40 mg PO AC-BRKFST #30 tablet. 05/24/18 [Rx] Cyclobenzaprine [Flexeril] 5 mg PO TID PRN #30 tablet 06/14/18 [Rx] traMADol HCL [Ultram] 50 mg PO Q4HR PRN 3 Days #18 tab 06/14/18 [Rx] Follow up Appointment(s)/Referral(s): Iván Enciso DO [Doctor of Osteopathic Medicine] - 1 Week Lan Galarza MD [STAFF PHYSICIAN] - 06/17/18 12:15 pm Manuel Trammell MD [Primary Care Provider] - 3 Days Activity/Diet/Wound Care/Special Instructions: Follow-up with physical therapy as an outpatient Discharge Disposition: HOME SELF-CARE
[2018-06-14 13:26] VITALS: BP 101/61; PULSE 60; TEMP 96.7
== END 2018-06-14 13:34 | disposition home or self-care (01) | DRG 556 ==
LOC: EC 00:22 → 6SEL 03:35
PROVIDERS: ADMIT Internal Medicine; ATTEND Internal Medicine
DX: M62.838 Other muscle spasm (principal); J90 Pleural effusion, not elsewhere classified; J98.11 Atelectasis; R77.8 Other specified abnormalities of plasma proteins; D72.829 Elevated white blood cell count, unspecified; E78.5 Hyperlipidemia, unspecified; F17.201 Nicotine dependence, unspecified, in remission; I10 Essential (primary) hypertension; I25.10 Atherosclerotic heart disease of native coronary artery without angina pectoris; I25.2 Old myocardial infarction; I70.0 Atherosclerosis of aorta; J44.9 Chronic obstructive pulmonary disease, unspecified; M19.90 Unspecified osteoarthritis, unspecified site; N40.0 Benign prostatic hyperplasia without lower urinary tract symptoms; Z79.02 Long term (current) use of antithrombotics/antiplatelets; Z79.82 Long term (current) use of aspirin; Z79.899 Other long term (current) drug therapy; Z82.49 Family history of ischemic heart disease and other diseases of the circulatory system; Z87.01 Personal history of pneumonia (recurrent); Z95.1 Presence of aortocoronary bypass graft; Z95.5 Presence of coronary angioplasty implant and graft
CPT/HCPCS: 36415; 71046; 71275; 74176; 76770; 80048; 80053; 81003; 82550; 82553; 83690; 84484; 85025; 85610; 85730; 93005; 96365; 96366; 96375; 96376; 99285